=== PATIENT | female | born 1945 | race Caucasian/White ===

== ENCOUNTER → 2023-09-09 14:21 | Outpatient (REF) | payer MEDICARE, OTHER, SELFPAY ==
[2023-09-09 14:34] LABS: % Basophils 0.6 % (0-2); % Eosinophils 5.3 % (0-6); % Immature Granulocytes 0.6 % (0-0.5); % Lymphocytes 26.7 % (20.5-51.1); % Monocytes 10.1 % (1.7-9.3); % Neutrophils 56.7 % (42.2-75.2); Absolute Eosinophils 0.3 10^3/uL (0-0.7); Absolute Lymphocytes 1.5 10^3/uL (1.2-3.4); Absolute Monocytes 0.6 10^3/uL (0.1-0.6); Absolute Neutrophils 3.1 10^3/uL (1.4-6.5); Hematocrit 32.8 % (37.0-47.0); Hemoglobin 9.7 g/dL (12.0-16.0); Mean Corp Hgb Conc. 29.6 g/dL (33.0-37.0); Mean Corpuscular Volume 87.9 fL (81.0-99.0); Mean Platelet Volume 10.6 fL (7.4-10.4); Nucleated Red Blood Cells % 0 %; Platelet Count 257 10^3/uL (130-400); Red Blood Cell Count 3.73 10^6/uL (4.20-5.40); Red Cell Dist. Width 15.5 % (11.5-14.5); White Blood Cell Count 5.4 10^3/uL (4.8-10.8)
[2023-09-09 14:42] LABS: Iron 38 ug/dl (37-170)
[2023-09-09 14:52] LABS: Percent Saturation 11 % (20-50); Total Iron Binding Capacity 340 ug/dl (265-497)
== END ==
LOC: CLAB 14:21
PROVIDERS: ATTENDING PHYSICIAN Family Medicine
DX: D64.9 Anemia, unspecified (principal)
CPT/HCPCS: 36415; 83540; 83550; 85025

== ENCOUNTER → 2023-09-29 13:22 | Outpatient (REF) | payer MEDICARE, OTHER, SELFPAY ==
[2023-09-29 14:40] LABS: % Basophils 0.5 % (0-2); % Eosinophils 6.8 % (0-6); % Immature Granulocytes 0.2 % (0-0.5); % Lymphocytes 22.7 % (20.5-51.1); % Monocytes 7.5 % (1.7-9.3); % Neutrophils 62.3 % (42.2-75.2); Absolute Eosinophils 0.4 10^3/uL (0-0.7); Absolute Lymphocytes 1.3 10^3/uL (1.2-3.4); Absolute Monocytes 0.4 10^3/uL (0.1-0.6); Absolute Neutrophils 3.6 10^3/uL (1.4-6.5); Hematocrit 32.4 % (37.0-47.0); Hemoglobin 9.7 g/dL (12.0-16.0); Mean Corp Hgb Conc. 29.9 g/dL (33.0-37.0); Mean Corpuscular Hgb 25.9 pg (27.0-31.0); Mean Corpuscular Volume 86.4 fL (81.0-99.0); Mean Platelet Volume 10.9 fL (7.4-10.4); Nucleated Red Blood Cells % 0 %; Platelet Count 230 10^3/uL (130-400); Red Blood Cell Count 3.75 10^6/uL (4.20-5.40); Red Cell Dist. Width 14.9 % (11.5-14.5); White Blood Cell Count 5.7 10^3/uL (4.8-10.8)
[2023-09-29 15:51] LABS: Iron 44 ug/dl (37-170)
== END ==
LOC: CLAB 13:22
PROVIDERS: ATTENDING PHYSICIAN Family Medicine
DX: D64.9 Anemia, unspecified (principal)
CPT/HCPCS: 36415; 82728; 83540; 85025; 86850; 86900; 86901

== ENCOUNTER 2023-10-17 04:20 | Observation (INO) | payer MEDICARE, OTHER, SELFPAY ==
[2023-10-16] VITALS (7 sets, daily range): BP systolic 118–189; BP diastolic 64–105; BMI 21.8
[2023-10-16 20:12] LABS: % Basophils 0.4 % (0-2); % Eosinophils 2.3 % (0-6); % Immature Granulocytes 0.7 % (0-0.5); % Lymphocytes 9.7 % (20.5-51.1); % Monocytes 7.7 % (1.7-9.3); % Neutrophils 79.2 % (42.2-75.2); Absolute Eosinophils 0.2 10^3/uL (0-0.7); Absolute Immature Granulocytes 0.1 10^3/uL (0-0.05); Absolute Lymphocytes 0.7 10^3/uL (1.2-3.4); Absolute Monocytes 0.6 10^3/uL (0.1-0.6); Absolute Neutrophils 5.9 10^3/uL (1.4-6.5); Hematocrit 36.5 % (37.0-47.0); Hemoglobin 10.9 g/dL (12.0-16.0); Mean Corp Hgb Conc. 29.9 g/dL (33.0-37.0); Mean Corpuscular Hgb 25.8 pg (27.0-31.0); Mean Corpuscular Volume 86.5 fL (81.0-99.0); Mean Platelet Volume 10.4 fL (7.4-10.4); Nucleated Red Blood Cells % 0 %; Platelet Count 254 10^3/uL (130-400); Red Blood Cell Count 4.22 10^6/uL (4.20-5.40); Red Cell Dist. Width 15.3 % (11.5-14.5); White Blood Cell Count 7.4 10^3/uL (4.8-10.8)
--- NOTE | 2023-10-16 20:22 | ED.GENMED ---
History of Present Illness
<PAULETTE Anders - Last Filed: 10/16/23 23:29>
General
Chief Complaint: Heart Rate Problem
Source: patient and family
Exam Limitations: none
Time Seen by Provider: 10/16/23 20:06
Nursing documentation reviewed up to this point in time: agreed with
Travel History
Have you had any contact with someone who has COVID-19?: No
Do you have any symptoms of coronavirus? Fever > 100 degrees, chills, cough, shortness of breath, sore throat, loss of taste or smell, muscle aches, or headache?: No
History of Present Illness
History of Present Illness:
77-year-old female brought to the ER by family for evaluation. Patient has chronic COPD and today noticed that her heart rate was in the 120s�130s. She normally is O2 dependent. She reports her pulse ox was good but because of the elevated heart
she presented here to the ER. She did use albuterol about an hour and 1/2-1-hour prior to arrival.
Past History
<PAULETTE Anders - Last Filed: 10/16/23 23:29>
Past History
ED Past Medical History: Asthma, COPD, GERD, HTN, Hypercholesterolemia and NIDDM
ED Past Surgical History: Appendectomy, Cholecystectomy and Other (fempop bypass bilaterally)
Social History
Tobacco: Former smoker
Alcohol: Occasional
Drug: None
Personal:
Living: with family
Family History
Family History: Other
Review of Systems
<PAULETTE Anders - Last Filed: 10/16/23 23:29>
Review of Systems
Allergies reviewed?: Yes
All Other Systems: ROS reviewed and negative except as documented in HPI and ROS
Constitutional: Reports no symptoms; Denies fever, fatigue or chills
Respiratory: Reports trouble breathing
Cardiac: Reports other (elevated hr )
ABD/GI: Reports no symptoms
Musculoskeletal: Reports no symptoms
Skin: Reports no symptoms
Neurological: Reports no symptoms
Psychiatric: Reports no symptoms
Phy Exam
<PAULETTE Anders - Last Filed: 10/16/23 23:29>
General Physical Exam
General Presentation: no apparent distress
General age: appears stated age
General Skin: warm and dry
General Habitus: normal
General Mental: alert
General Hydration: appears well hydrated
Cardiovascular Exam
Cardiovascular Exam: tachycardia
Pulmonary Exam
Pulmonary Exam: no respiratory distress and decreased breath sounds
Neurological Exam
Neurological Exam: alert and oriented x3
Musculoskeletal Exam
Musculoskeletal Exam: full ROM
Skin Exam
Skin Exam: normal color and warm/dry
Psychiatric Exam
Psychiatric Exam: normal mood/affect
Course
<PAULETTE Anders - Last Filed: 10/16/23 23:29>
Orders/Labs/Results
Orders:
Orders
10/16/23 19:02
Electrocardiogram (*1) Urgent
Reason for Study: Chest Pain
EKG- Treatment ONCE
10/16/23 19:59
CMP [Comprehensive Metabolic Panel] Urgent
Complete Blood Count/With Diff Urgent
10/16/23 20:37
Levalbuterol [Xopenex 1.25 mg Inhalant Solution] 1.25 mg INH R NOW STA
10/16/23 20:49
0.9% Sodium Chloride 500 ml [Nss] 500 ml IV BOLUS
10/16/23 22:12
Dexamethasone Sod Phosphate [Decadron] 10 mg IV NOW STA
10/16/23 22:24
Chest [CR Chest - 2 Views ] Urgent
Comment:
Reason For Exam: sob
Abnormal Lab Results
10/16/23
19:59
Hgb 10.9 L g/dL
(12.0-16.0)
Hct 36.5 L %
(37.0-47.0)
MCH 25.8 L pg
(27.0-31.0)
MCHC 29.9 L g/dL
(33.0-37.0)
RDW 15.3 H %
(11.5-14.5)
Abs Immat Gran (auto) 0.1 H 10^3/uL
(0-0.05)
Absolute Lymphs (auto) 0.7 L 10^3/uL
(1.2-3.4)
Immature Gran % 0.7 H %
(0-0.5)
Neutrophils % 79.2 H %
(42.2-75.2)
Lymphocytes % 9.7 L %
(20.5-51.1)
Carbon Dioxide 35 H mmol/L
(22-30)
Glucose 284 H mg/dl
(70-99)
10/16/23 19:59
10/16/23 19:59
Vital Signs
Initial and Last Documented VS:
Initial Vital Signs
Temp Pulse Resp BP Pulse Ox
99.9 F 139 38 189/105 96
10/16/23 19:07 10/16/23 19:07 10/16/23 19:07 10/16/23 19:07 10/16/23 19:07
Last Documented Vital Signs
Temp Pulse Resp BP Pulse Ox
97.9 F 119 18 132/76 96
10/16/23 19:10 10/16/23 21:00 10/16/23 21:00 10/16/23 21:00 10/16/23 21:00
Cot Assembler consulted with Physician
Cot Assembler consulted with physician?: Yes
Name of Physician Consulted: Eliceo
<Marcos J. Eliceo, DO - Last Filed: 10/16/23 21:56>
Orders/Labs/Results
Orders:
Orders
10/16/23 19:02
Electrocardiogram (*1) Urgent
Reason for Study: Chest Pain
EKG- Treatment ONCE
10/16/23 19:59
CMP [Comprehensive Metabolic Panel] Urgent
Complete Blood Count/With Diff Urgent
10/16/23 20:37
Levalbuterol [Xopenex 1.25 mg Inhalant Solution] 1.25 mg INH R NOW STA
10/16/23 20:49
0.9% Sodium Chloride 500 ml [Nss] 500 ml IV BOLUS
10/16/23 22:12
Dexamethasone Sod Phosphate [Decadron] 10 mg IV NOW STA
10/16/23 22:24
Chest [CR Chest - 2 Views ] Urgent
Comment:
Reason For Exam: sob
Abnormal Lab Results
10/16/23
19:59
Hgb 10.9 L g/dL
(12.0-16.0)
Hct 36.5 L %
(37.0-47.0)
MCH 25.8 L pg
(27.0-31.0)
MCHC 29.9 L g/dL
(33.0-37.0)
RDW 15.3 H %
(11.5-14.5)
Abs Immat Gran (auto) 0.1 H 10^3/uL
(0-0.05)
Absolute Lymphs (auto) 0.7 L 10^3/uL
(1.2-3.4)
Immature Gran % 0.7 H %
(0-0.5)
Neutrophils % 79.2 H %
(42.2-75.2)
Lymphocytes % 9.7 L %
(20.5-51.1)
Carbon Dioxide 35 H mmol/L
(22-30)
Glucose 284 H mg/dl
(70-99)
10/16/23 19:59
10/16/23 19:59
Vital Signs
Initial and Last Documented VS:
Initial Vital Signs
Temp Pulse Resp BP Pulse Ox
99.9 F 139 38 189/105 96
10/16/23 19:07 10/16/23 19:07 10/16/23 19:07 10/16/23 19:07 10/16/23 19:07
Last Documented Vital Signs
Temp Pulse Resp BP Pulse Ox
97.9 F 119 18 132/76 96
10/16/23 19:10 10/16/23 21:00 10/16/23 21:00 10/16/23 21:00 10/16/23 21:00
<PAULETTE Anders - Last Filed: 10/16/23 23:29>
MDM/Problems Addressed
Differential Diagnosis Includes:
Not limited to dehydration COPD exacerbation
MDM/Problems Addressed:
Patient is a 77-year-old female with history of COPD on chronic O2 presents with shortness of breath elevated heart rate. Patient presented tachycardic with a heart rate of 139. Patient was given fluids and pt was given Decadron, xoponex.
Evaluated by Ame fisher.
Chronic conditions affecting care:
COPD
<PAULETTE Anders - Last Filed: 10/16/23 23:29>
*Critical Care Note
Total Time (30-74mins, 75-104mins- exclusive of procedures): Not Applicable
ED Attending Note
<PAULETTE Anders - Last Filed: 10/16/23 23:29>
-
Portions of this chart may have been created with voice recognition software.� Occasional wrong word or��sound alike� substitutions may have occurred due to the inherent limitations of voice recognition software.
<Marcos Fenton, DO - Last Filed: 10/16/23 21:56>
ED Attending Note
Patient seen and examined by attending physician: Yes
I performed the substantive portion of visit, reviewed & personally made and approve the management plan that is documented in note by myself or MARVIN.: Yes
ED Attending Note:
Seen with PROFILER OPERATOR examined independently 77-year-old female advanced COPD oxygen dependent presents with shortness of breath tachycardia looks improved after Xopenex, patient states she feels too short of breath to go home
Discharge Plan
Departure
Patient Disposition: Admit
Date of Disposition: 10/16/23
Time of Disposition: 23:28
Admit to: Telemetry
Presentation/result/management discussed w/ accepting MD/DO: Hospitalist
Patient with high blood pressure during this ER visit?: Yes
Condition: Fair
Covid-19: Not Applicable
Discharge Problem:
copd exacerbation
Prescriptions:
No Action
albuterol sulfate 1 PUFF HFA aerosol inhaler
2 puff inhalation R Q4HPRN PRN (Reason: sob)
amlodipine 5 MG tablet
5 mg PO DAILY
metformin 500 MG tablet extended release 24 hr
500 mg PO BID@0800,1700
guaifenesin [Mucus Relief ER] 600 MG tablet extended release 12hr
600 mg PO BIDPRN PRN (Reason: post nasal drip)
diltiazem HCl 240 MG capsule,extended release 24hr
240 mg PO DAILY Qty: 30 0RF
ipratropium-albuterol 0.5 mg-3 mg(2.5 mg base)/3 mL Solution For Nebulization
3 ml INHALATION R QID
alprazolam [Xanax] 0.5 mg Tablet
0.25 mg PO BID
furosemide 20 mg Tablet
20 mg PO Q48H
formoterol fumarate [Perforomist] 20 mcg/2 mL Solution For Nebulization
20 mcg INHALATION R BID
prednisone 10 MG tablet
5 mg PO Q48H
budesonide 0.25 mg/2 mL Suspension For Nebulization
0.25 mg INHALATION R BID
escitalopram oxalate [Lexapro] 20 mg Tablet
20 mg PO DAILY
Eliquis 5 mg Tablet
5 mg PO BID
Referrals:
Hay Browne DO [Family Provider] -
Interventions
Interventions:
*Risk Screen - Suicide Last Done: 10/16/23 19:12
*General Assessment Last Done: 10/16/23 19:12
*Neglect/Abuse Screening Last Done: 10/16/23 19:12
ED- Fall Risk Assessment Last Done: 10/16/23 19:37
*ED COVID-19 Vaccine History Last Done: 10/16/23 19:12
ED- Cardiac Assessment Last Done: 10/16/23 19:37
ED- Pulmonary Assessment Last Done: 10/16/23 19:37
[2023-10-16 20:24] LABS: ALT (SGPT) 13 U/L (0-35); AST (SGOT) 20 U/L (14-36); Alkaline Phosphatase 78 U/L (38-126); Blood Urea Nitrogen 14 mg/dl (7-17); Calcium 9.3 mg/dl (8.4-10.2); Carbon Dioxide 35 mmol/L (22-30); Chloride 99 mmol/L (98-107); Estimated Creatinine Clearance 54 ml/min; Glucose 284 mg/dl (70-99); Potassium 4.7 mmol/L (3.5-5.1); Sodium 136 mmol/L (135-145); Total Bilirubin 0.5 mg/dl (0.2-1.3); Total Protein 6.9 g/dl (6.3-8.2); eGFR > 60.00
[2023-10-16] MEDS: XOPENEX 1.25 MG INHALANT SOLUTION INH (21:06)
[2023-10-16] MEDS: NSS 500 IV (21:10)
[2023-10-16] MEDS: DECADRON 10 MG IV (22:33)
[2023-10-17] VITALS (13 sets, daily range): BP systolic 112–165; BP diastolic 56–90; PULSE 96–97; O2SAT 95–96; BMI 21.4
--- NOTE | 2023-10-17 03:31 | HPS.HSE ---
Family Physician
-
Family Physician: Hay Browne
Chief Complaint
-
Rapid Heart rate
History of Present Illness
Patient is a 77y F with PMH significant for COPD on home O2 who presents to ED complaining of fast heart rate. Patient states that she was feeling 'not right' earlier today while family was visiting her. She cannot explain her symptoms in any
detail. She denies any significant cough or increase in her usual chronic dyspnea. She checked her SpO2 at home and noted that her heart rate was in the 130s. She presented to the ED for further evaluation.
Patient lives wit her daughter and son-in-law who are currently out of town. She notes that she may be some anxious about their absence.
She also notes that she woke with some back discomfort this AM that has bothered her throughout the day. She denies any recent fall or injury. She denies any urinary complaints.
At the time of my exam in the ED, patient is sleeping comfortably and her heart rate is in the 90s.
Medical History
Past Medical History
Past Medical History: Reports Other
Additional Past Medical History:
Severe COPD
Chronic Hypoxemic Respiratory Failure
Hypertension
DM-II
ASCVD / PAD
History of DVT / PE
Anxiety / Depression
Chronic Ambulatory Dysfunction
Past Surgical History: Reports Other
Additional Past Surgical History:
Appendectomy
Tubal Ligation
Bilateral Fem-Pop Bypasses
Cholecystectomy
Social History
Tobacco: Former Smoker (Quit > 10 years ago. > 50 pack years total use.)
Alcohol: None
Drug: None
Living: With Family
Family History
Family History: Not pertinent
Allergies / Home Medications
Allergies reflects when Allergies were last updated in [facility].
Home Medications with original date entered in [facility]
Allergy/Medication List:
Allergies
Allergy/AdvReac Type Severity Reaction Status Date / Time
No Known Allergies Allergy Verified 10/16/23 19:44
Home Medications
albuterol sulfate 90 mcg/actuation aerosol inhaler 2 puff inhalation R Q4HPRN PRN sob 04/18/13
amlodipine 5 mg tablet 5 mg PO DAILY Blood Pressure 08/01/15
metformin 500 mg tablet,extended release 24 hr 500 mg PO BID@0800,1700 Diabetes 03/25/17
guaifenesin 600 mg tablet, extended release 12 hr (Mucus Relief ER) 600 mg PO BIDPRN PRN post nasal drip 11/01/19
diltiazem HCl 240 mg capsule,extended release 24 hr 240 mg PO DAILY #30 caps 11/05/19
alprazolam 0.5 mg tablet (Xanax) 0.25 mg PO BID Mental Health/Anxiety 08/12/23
apixaban 5 mg tablet (Eliquis) 5 mg PO BID Blood Clot Prevention/Tx 08/12/23
budesonide 0.25 mg/2 mL suspension for nebulization 0.25 mg inhalation R BID Lung/Breathing Issues 08/12/23
escitalopram oxalate 20 mg tablet (Lexapro) 20 mg PO DAILY Depression 08/12/23
formoterol fumarate 20 mcg/2 mL solution for nebulization (Perforomist) 20 mcg inhalation R BID Lung/Breathing Issues 08/12/23
furosemide 20 mg tablet 20 mg PO Q48H Fluid Retention/Swelling 08/12/23
ipratropium 0.5 mg-albuterol 3 mg (2.5 mg base)/3 mL nebulization soln 3 ml inhalation R QID Lung/Breathing Issues 08/12/23
prednisone 10 mg tablet 5 mg PO Q48H Anti-Inflammatory 08/12/23
Review of Systems
-
History Source: Patient
A 12 point ROS was completed and negative except as noted: Yes
Constitutional: Reports Fatigue; Denies Fever or Chills
EENT: Denies Sore Throat
Respiratory: Reports Cough and Trouble Breathing; Denies Hemoptysis
Cardiac: Denies Chest Pain, Palpitations or Syncope
Abdomen/GI: Denies Abdominal Pain, Nausea, Vomiting or Diarrhea
: Denies Dysuria or Frequency
Neurological: Denies Dizzy or Headache
Psych: Reports Anxiety; Denies Depression
Physical Exam
Vital Signs
Vital Signs
Temp Pulse Resp BP Pulse Ox
97.9 F 88 20 118/63 99
10/16/23 19:10 10/17/23 03:00 10/17/23 03:00 10/17/23 03:00 10/17/23 00:30
Physical Exam
General: Other (89y F in no acute distress.)
HEENT: Moist mucous membranes and PERRLA
Respiratory: Other (Decreased BS bilaterally. No significant wheezing at present.)
Cardiac: S1/S2 and Regular Rhythm; No Tachycardia
GI: Soft, Non Tender, Non Distended and Normal Bowel Sounds
Musculoskeletal: No Clubbing, No Cyanosis and Other (Trace pedal edema on the R.)
Neuro: AO x 3
Laboratory Results
-
10/16/23 19:59
10/16/23 19:59
Laboratory Results
Total Bilirubin 0.5 mg/dl (0.2-1.3) 10/16/23 19:59
AST 20 U/L (14-36) 10/16/23 19:59
ALT 13 U/L (0-35) 10/16/23 19:59
Alkaline Phosphatase 78 U/L (38-126) 10/16/23 19:59
Impression/Plan
-
A/P: Patient is a 77y F with PMH significant for COPD, hypertension and anxiety who presents to ED for evaluation of elevated heart rate.
Sinus Tachycardia
- Observe overnight for further evaluation.
- Multiple contributing factors here including chronic respiratory issues, back pain and anxiety.
- Currently normalized while patient asleep.
- Address underlying issues as noted below.
- No other specific treatment.
COPD without Acute Exacerbation
Chronic Hypoxemic Respiratory Failure
- No wheezing at the time of my exam.
- Patient denies any recent change in cough / dyspnea / etc.
- Hold further IV steroids for now.
- Continue PO prednisone at 10mg daily for now and adjust dosing as needed / able.
- Continue usual inhaled medications.
- Continue usual oxygen supplementation.
Low Back Pain
- Patient denies any specific injury or trauma.
- Heat to low back.
- Tylenol as needed for pain.
- PT / OT evaluations.
ASCVD
Benign Hypertension
- Stable. Continue current med regimen for BP control and adjust as needed.
DM-II
- Stable. Continue metformin.
- Follow glucose and cover with SSI as needed.
Generalized Anxiety
- Perhaps some increased anxiety with live-in family out of town.
- Continue usual anxiolytic med regimen.
DVT Prophylaxis
History of DVT / PE
- On Eliquis
Code Status: DNR
[2023-10-17 06:39] LABS: Hematocrit 32.3 % (37.0-47.0); Hemoglobin 9.6 g/dL (12.0-16.0); Mean Corp Hgb Conc. 29.7 g/dL (33.0-37.0); Mean Corpuscular Hgb 25.4 pg (27.0-31.0); Mean Corpuscular Volume 85.4 fL (81.0-99.0); Mean Platelet Volume 9.8 fL (7.4-10.4); Platelet Count 227 10^3/uL (130-400); Red Blood Cell Count 3.78 10^6/uL (4.20-5.40); Red Cell Dist. Width 15.4 % (11.5-14.5); White Blood Cell Count 6.2 10^3/uL (4.8-10.8)
[2023-10-17 07:04] LABS: Blood Urea Nitrogen 12 mg/dl (7-17); Calcium 8.8 mg/dl (8.4-10.2); Carbon Dioxide 33 mmol/L (22-30); Chloride 104 mmol/L (98-107); Estimated Creatinine Clearance 72 ml/min; Glucose 189 mg/dl (70-99); Potassium 5.1 mmol/L (3.5-5.1); Sodium 138 mmol/L (135-145); eGFR > 60.00
[2023-10-17 07:35] LABS: TSH Reflex To Free T4 0.24 uIU/ml (0.47-4.68)
--- NOTE | 2023-10-17 08:00 | PTCARENOTE ---
Pt admitted to room 410-1. Slide transferred from stretcher to bed. Pt AAOx3. Tele showing NSR HR 90's. VSS. Pt oriented to room and has call lugo within reach.
[2023-10-17 08:04] LABS: Glucose - Point of Care 131 mg/dl (70-99)
[2023-10-17] MEDS: DUONEB 3 ML INH ×4 (08:14→19:14)
[2023-10-17] MEDS: PULMICORT 0.5 MG INH ×2 (08:15→19:15)
[2023-10-17] MEDS: NOVOLOG FLEXPEN-LOW RESISTANCE SC (08:46)
[2023-10-17] MEDS: ELIQUIS 5 MG PO ×2 (09:00→20:52)
[2023-10-17] MEDS: CARDIZEM CD 240 MG PO (09:00)
[2023-10-17] MEDS: DELTASONE 10 MG PO (09:00)
[2023-10-17] MEDS: NORVASC 5 MG PO (09:01)
[2023-10-17] MEDS: MUCINEX 600 MG PO ×2 (09:01→20:52)
[2023-10-17] MEDS: LEXAPRO 20 MG PO (09:01)
[2023-10-17] MEDS: LASIX 20 MG PO (09:11)
[2023-10-17] MEDS: TYLENOL 650 MG PO (09:13)
[2023-10-17] MEDS: GLUCOPHAGE XR EXTENDED RELEASE 500 MG PO ×2 (09:21→17:22)
[2023-10-17 09:51] LABS: Glycohemoglobin (HgbA1c) 6.6 % (4.0-5.6)
--- NOTE | 2023-10-17 10:49 | W.PN.UPDATE ---
Update Note
Progress Note Update
Admitted this morning by Dr. Cardenas for tachycardia.
She noted that on her pulse oximetry. It was apparently 130. She got worried and became anxious and came into the hospital.
This morning she is sleep deprived.
Denies any worsening of her chronic dyspnea. Denies need of increasing FiO2. She has a chronic cough without change. No chest pain. No nausea or vomiting.
She is on the cardiac cath tech which shows sinus tachycardia with heart rate in 90s.
She takes twice daily nebulizers chronically. She is also anxious and takes Xanax at home.
Chest with decreased breath sounds in general without any wheeze. No acute respiratory distress.
Sinus tachycardia-suspect reactive, rule out arrhythmia. Continue shelter monitor today. She is on Eliquis for DVT.
TSH low but free t4 normal.
[2023-10-17] MEDS: PROTONIX 40 MG PO (11:35)
[2023-10-17] MEDS: XANAX 0.25 MG PO ×2 (12:07→23:31)
[2023-10-17 12:18] LABS: Glucose - Point of Care 225 mg/dl (70-99)
[2023-10-17] MEDS: NOVOLOG FLEXPEN-LOW RESISTANCE 2 UNITS SC ×2 (12:41→17:21)
--- NOTE | 2023-10-17 16:41 | CM ---
CM following re: d/c planning
Chart reviewed
CM met with the patient at bedside; IA completed
Pt is here as observation, LÓPEZ letter explained and copy provided
Pt states she resides with her daughter and her family in a 2SH with 1STE
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
Pt has no SNF hx, has a spc, w/c, O2, & a rollator and has recent hx with [facility] for home care
Pt does have prescription coverage and rx's are filled at [facility] on [address] [place] and maintenance meds are filled through [facility]
Pt PCP-Dr. Browne
Per PT/OT evals post d/c recommendation is for VN
CM to place referral via care port with [facility] since agency known to patient
CM will continue to follow patient progress and assist with any additional needs as indicated
PLAN; d/c home with VN
[2023-10-17 17:18] LABS: Glucose - Point of Care 203 mg/dl (70-99)
[2023-10-17 21:02] LABS: Glucose - Point of Care 217 mg/dl (70-99)
[2023-10-17] MEDS: MAALOX 30 ML PO (22:15)
[2023-10-18 00:27] VITALS: PULSE 3; PULSE 84
[2023-10-18 02:16] VITALS: BMI 21.4
[2023-10-18 03:55] VITALS: BP 149/75
[2023-10-18 04:10] VITALS: BMI 21.5
[2023-10-18 07:30] VITALS: BP 157/53
[2023-10-18] MEDS: DUONEB 3 ML INH ×2 (07:34→11:18)
[2023-10-18] MEDS: PULMICORT 0.5 MG INH (07:36)
[2023-10-18 08:00] LABS: Glucose - Point of Care 141 mg/dl (70-99)
--- NOTE | 2023-10-18 09:27 | W.PN.HOSP.TC ---
Today's Communication/Plan
-
Discharge home with home PT today
Assessment / Plan
Assessment / Plan
HPI: Patient is a 77y F with PMH significant for COPD, hypertension and anxiety who presents to ED for evaluation of elevated heart rate.
Sinus Tachycardia
�- Multiple contributing factors here including chronic respiratory issues, back pain and anxiety.
�- Resolved, she denies palpitations
- She was able to ambulate with PT without tachycardia
- Medically stable for discharge home with home PT
COPD without Acute Exacerbation
Chronic Hypoxemic Respiratory Failure
�- Resume previous home prednisone dose of 5 mg every 48 hours
- States her breathing is at baseline, she is on her home oxygen requirement of 2 L
Low Back Pain
�- Patient denies any specific injury or trauma.
�- Heat to low back.
�- Tylenol as needed for pain.
�- PT / OT rec home PT
ASCVD
Benign Hypertension
�- Stable.� Continue current med regimen for BP control and adjust as needed.
DM-II
�- Stable.� Continue metformin.
�- Follow glucose and cover with SSI as needed.
Generalized Anxiety
�- Perhaps some increased anxiety with live-in family out of town.
�- Continue usual anxiolytic med regimen.
DVT Prophylaxis
History of DVT / PE
�- On Eliquis
Code Status:� DNR
Physical Exam
General: No acute distress
HEENT: Normocephalic, Atraumatic, EOMI, MMM
Respiratory: Severely diminished breath sounds in all lung ribeiro diffusely
Cardiac: Normal S1/S2, Regular Rate and Rhythm
GI: Soft, Nontender, Nondistended, Normal Bowel Sounds
Extremities: No Clubbing, Cyanosis, or Edema
Neuro: Nonfocal/Grossly Intact
Psych: Calm, Cooperative
Derm: No Visible lesions
Anticipated Discharge: Today
Subjective/Interval History
-
Date of Service: October 18, 2023
Patient has chronic shortness of breath from her COPD. She states her breathing is at baseline. She does have a chronic cough. Denies hemoptysis. Tachycardia resolved. Denies palpitations.
Objective Data
-
Vital Signs:
Vital Signs
Temp Pulse Resp BP Pulse Ox
97.8 F 75 16 157/53 99
10/18/23 07:30 10/18/23 07:42 10/18/23 07:42 10/18/23 07:30 10/18/23 07:42
[2023-10-18] MEDS: NOVOLOG FLEXPEN-LOW RESISTANCE SC ×2 (10:14→12:17)
[2023-10-18] MEDS: LEXAPRO 20 MG PO (10:15)
[2023-10-18] MEDS: CARDIZEM CD 240 MG PO (10:15)
[2023-10-18] MEDS: ELIQUIS 5 MG PO (10:15)
[2023-10-18] MEDS: MUCINEX 600 MG PO (10:15)
[2023-10-18] MEDS: DELTASONE 10 MG PO (10:16)
[2023-10-18] MEDS: GLUCOPHAGE XR EXTENDED RELEASE 500 MG PO (10:16)
[2023-10-18] MEDS: NORVASC 5 MG PO (10:16)
[2023-10-18] MEDS: PROTONIX 40 MG PO (10:16)
[2023-10-18] MEDS: XANAX 0.25 MG PO ×2 (10:23→13:52)
[2023-10-18 11:20] VITALS: BP 147/73
[2023-10-18 11:52] LABS: Glucose - Point of Care 129 mg/dl (70-99)
[2023-10-18 12:46] VITALS: PULSE 97; O2SAT 95
--- NOTE | 2023-10-18 13:26 | VNURNOTE ---
Home Health Liaison met with patient at 1215 to discuss [facility] nurse/therapy, visits, schedule and homebound status. Patient is agreeable and understands that visits at home will be 2-3 x per week to assess and teach medical management.
[facility] brochure provided with contact information. Patient is aware that [facility] will contact her for start of care in 1-2 days after discharge from .
[facility] referral completed previously and accepted in Care Port.
--- NOTE | 2023-10-18 13:27 | W.DCSUMMARY ---
Discharge Summary
Discharge Data
Date of Admission: 10/17/23
Date of Discharge: 10/18/23
-
Pending Results: No
Hospital Course
Discharge diagnosis:
Reactive sinus tachycardia
Chronic obstructive pulmonary disease without exacerbation
Chronic hypoxic respiratory failure on 2 L of oxygen
Chronic lower back pain
Coronary artery disease
Type 2 diabetes
Generalized anxiety
History of deep vein thrombosis on Eliquis
Hospital course:
77-year-old female with a past medical history of COPD, chronic hypoxic respiratory failure requiring 2 L of oxygen, hypertension, and anxiety was admitted for sinus tachycardia. Patient reports that her heart monitor read 130 at home. By the time
she was seen by the admitting hospital doctor, she was sleeping and her heart rate was in the 90s.
Patient's sinus tachycardia is reactive, secondary to her anxiety, and possibly back pain. She denies any recent fall, or injury. Her family was out of town at the time, which likely contributed to her anxiety. She was continued on her home
Xanax. She is usually on prednisone 5 mg every other day. This was increased to 10 mg daily for 2 days to help with her back pain.
Her sinus tachycardia resolved, her back pain improved. She was able to ambulate with PT without tachycardia. She has chronic shortness of breath, and her breathing is at baseline. She is medically stable for discharge. She can follow-up with
her primary care doctor in 1 week. She can also resume her previous prednisone dose of 5 mg daily. She can take Tylenol 1 g 3 times daily for her back pain.
Disposition: Home with home PT
Discharge planning: Required 35 minutes
Discharge Plan
-
Patient Disposition: Home with Home Care
Discharge Diagnosis/Procedures: Reactive sinus tachycardia, chronic obstructive pulmonary disease, chronic hypoxic respiratory failure requiring 2 L of oxygen, chronic back pain, anxiety
Condition: Fair
Diet: Low Fat, Low Cholesterol and Diabetic, Carb Controlled
Activity: As tolerated
Other Services: VN and PT
Referrals:
Hay Browne DO [Family Provider] - in one week
Prescriptions:
New
acetaminophen 500 mg tablet
1,000 mg PO TID Qty: 90 0RF
Continued
albuterol sulfate 1 PUFF HFA aerosol inhaler
2 puff inhalation R Q4HPRN PRN (Reason: sob)
amlodipine 5 MG tablet
5 mg PO DAILY
metformin 500 MG tablet extended release 24 hr
500 mg PO BID@0800,1700
guaifenesin [Mucus Relief ER] 600 MG tablet extended release 12hr
600 mg PO BIDPRN PRN (Reason: post nasal drip)
diltiazem HCl 240 MG capsule,extended release 24hr
240 mg PO DAILY Qty: 30 0RF
ipratropium-albuterol 0.5 mg-3 mg(2.5 mg base)/3 mL Solution For Nebulization
3 ml INHALATION R QID
alprazolam [Xanax] 0.5 mg Tablet
0.25 mg PO BID
furosemide 20 mg Tablet
20 mg PO Q48H
formoterol fumarate [Perforomist] 20 mcg/2 mL Solution For Nebulization
20 mcg INHALATION R BID
prednisone 10 MG tablet
5 mg PO Q48H
budesonide 0.25 mg/2 mL Suspension For Nebulization
0.25 mg INHALATION R BID
escitalopram oxalate [Lexapro] 20 mg Tablet
20 mg PO DAILY
Eliquis 5 mg Tablet
5 mg PO BID
Discharge Orders:
Discharge Patient (As Directed); Ordered 10/18/23
Ordered By: Shaun Huddleston
Discharge Date and Time
Discharge Date/Time: 10/18/23 14:23
--- NOTE | 2023-10-18 14:30 | CM ---
CM reviewed chart and noted dc order
VN order on chart and [facility] accepted for service
Pt discharged prior to CM meeting with her
No further dc needs noted per chart review
Discharge Disposition- home with [facility]
== END 2023-10-18 14:23 | disposition home health service (06) ==
LOC: 4 EAST ACU 04:20
PROVIDERS: ADMITTING PHYSICIAN Hospitalist; ATTENDING PHYSICIAN Family Medicine; EMERGENCY PHYSICIAN Emergency Medicine; FAMILY PHYSICIAN Family Medicine
DX: R00.0 Tachycardia, unspecified (principal); J44.9 Chronic obstructive pulmonary disease, unspecified; I10 Essential (primary) hypertension; K21.9 Gastro-esophageal reflux disease without esophagitis; J96.11 Chronic respiratory failure with hypoxia; I25.10 Atherosclerotic heart disease of native coronary artery without angina pectoris; F32.A Depression, unspecified; R26.9 Unspecified abnormalities of gait and mobility; E11.9 Type 2 diabetes mellitus without complications; M54.50 Low back pain, unspecified; F41.1 Generalized anxiety disorder; E78.00 Pure hypercholesterolemia, unspecified; Z79.84 Long term (current) use of oral hypoglycemic drugs; Z79.51 Long term (current) use of inhaled steroids; Z79.52 Long term (current) use of systemic steroids; Z79.01 Long term (current) use of anticoagulants; Z90.49 Acquired absence of other specified parts of digestive tract; Z99.81 Dependence on supplemental oxygen; Z86.718 Personal history of other venous thrombosis and embolism; Z86.711 Personal history of pulmonary embolism; Z66 Do not resuscitate
CPT/HCPCS: 94660; 71046; 80048; 80053; 82962; 83036; 84439; 84443; 85025; 85027; 93005; 94640; 96361; 96374; 97116; 97162; 97166; 99285; G0378

== ENCOUNTER → 2023-11-19 16:48 | Outpatient (REF) | payer MEDICARE, OTHER, SELFPAY ==
[2023-11-19 17:32] LABS: Hemoglobin 12.3 g/dL (12.0-16.0)
[2023-11-19 18:53] LABS: Folate 8.8 ng/ml (2.76-20); Vitamin B12 564 pg/ml (239-931)
[2023-11-21 21:19] LABS: Endomysial IgA Antibody Titer <1:10 (<1:10)
[2023-11-22 04:06] LABS: IgA 226 mg/dl (70-400)
[2023-11-24 15:54] LABS: tTG IgA Antibody 10.5 EU/ml (0-19); tTG IgG Antibody 8.8 EU/ml (0-19)
== END ==
LOC: REG 16:48
PROVIDERS: ATTENDING PHYSICIAN Internal Medicine Gastroenterology; FAMILY PHYSICIAN Family Medicine
DX: D50.9 Iron deficiency anemia, unspecified (principal); E11.9 Type 2 diabetes mellitus without complications; K21.9 Gastro-esophageal reflux disease without esophagitis
CPT/HCPCS: 36415; 82607; 82746; 82784; 83516; 85018; 86231

== ENCOUNTER → 2023-11-23 12:47 | Outpatient (REF) | payer MEDICARE, OTHER, SELFPAY | LOC: RAD 12:47 | PROVIDERS: ATTENDING PHYSICIAN Internal Medicine Gastroenterology; FAMILY PHYSICIAN Family Medicine | DX: D50.9 Iron deficiency anemia, unspecified (principal) | CPT/HCPCS: 74177; Q9967 ==

== ENCOUNTER → 2023-12-23 12:14 | Outpatient (REF) | payer MEDICARE, OTHER, SELFPAY ==
[2023-12-23 13:45] LABS: % Basophils 0.4 % (0-2); % Eosinophils 1.2 % (0-6); % Immature Granulocytes 0.4 % (0-0.5); % Lymphocytes 10.2 % (20.5-51.1); % Monocytes 5.5 % (1.7-9.3); % Neutrophils 82.3 % (42.2-75.2); Absolute Eosinophils 0.1 10^3/uL (0-0.7); Absolute Lymphocytes 0.7 10^3/uL (1.2-3.4); Absolute Monocytes 0.4 10^3/uL (0.1-0.6); Absolute Neutrophils 5.7 10^3/uL (1.4-6.5); Hematocrit 42.5 % (37.0-47.0); Hemoglobin 12.8 g/dL (12.0-16.0); Mean Corp Hgb Conc. 30.1 g/dL (33.0-37.0); Mean Corpuscular Hgb 28.6 pg (27.0-31.0); Mean Corpuscular Volume 95.1 fL (81.0-99.0); Mean Platelet Volume 10.3 fL (7.4-10.4); Nucleated Red Blood Cells % 0 %; Platelet Count 186 10^3/uL (130-400); Red Blood Cell Count 4.47 10^6/uL (4.20-5.40); Red Cell Dist. Width 14.7 % (11.5-14.5)
[2023-12-23 15:27] LABS: Iron 72 ug/dl (37-170)
[2023-12-23 15:36] LABS: Percent Saturation 31 % (20-50); Total Iron Binding Capacity 226 ug/dl (265-497)
[2023-12-23 16:02] LABS: Ferritin 74.4 ng/ml (11.1-264.0)
== END ==
LOC: REG 12:14
PROVIDERS: ATTENDING PHYSICIAN Internal Medicine Hematology & Oncology
DX: D50.9 Iron deficiency anemia, unspecified (principal)
CPT/HCPCS: 36415; 82728; 83540; 83550; 85025

== ENCOUNTER 2024-03-27 03:11 | Inpatient (IN) | payer MEDICARE, OTHER, SELFPAY ==
[2024-03-27] VITALS (30 sets, daily range): BP systolic 104–176; BP diastolic 53–104; PULSE 2–118; BMI 20.8; BMI 21.1
--- NOTE | 2024-03-27 01:28 | ED.GENMED ---
History of Present Illness
General
Chief Complaint: Breathing Problem
Source: patient
Time Seen by Provider: 03/27/24 01:19
History of Present Illness
History of Present Illness:
78yoF with a history of COPD on 2L NC and BiPAP nightly, hypertension, hyperlipidemia, type 2 diabetes, peripheral artery disease presenting with her daughter for evaluation of shortness of breath. Symptoms began yesterday evening. She reports an
acute worsening of her symptoms this evening prompting ED visit. Patient has also not been feeling well the past few days with a headache and nausea. Patient has been visiting with family and has not been as compliant with her BiPAP the past few
days.
Past History
Past History
ED Past Medical History: Asthma, COPD, GERD, HTN, Hypercholesterolemia and NIDDM
ED Past Surgical History: Appendectomy, Cholecystectomy and Other (fempop bypass bilaterally)
Social History
Tobacco: Former smoker
Alcohol: Occasional
Drug: None
Personal:
Living: with family
Family History
Family History: Other
Phy Exam
General Physical Exam
General Presentation: moderate distress
General age: appears stated age
General Skin: warm and dry
General Habitus: elderly
General Mental: alert
Cardiovascular Exam
Cardiovascular Exam: no edema and tachycardia
Pulmonary Exam
Pulmonary Exam: accessory muscle use, decreased breath sounds, respiratory distress and other (Tachypnea present with pursed lip breathing. +Accessory muscle usage. Decreased breath sounds throughout. )
[place] Coma Scale
Eye Opening: Spontaneous
Verbal Response: Oriented
Motor Response: Obeys Commands
GCS Total Score: 15
Skin Exam
Skin Exam: normal color and warm/dry
Psychiatric Exam
Psychiatric Exam: anxious
Scores
Heart Failure Risk
Heart Failure Risk Score: Not Applicable
Course
Orders/Labs/Results
Orders:
Orders
03/27/24 01:16
Electrocardiogram (*1) Urgent
Reason for Study: Shortness of Breath
EKG- Treatment ONCE
03/27/24 01:24
Albuterol Sulfate [Ventolin Nebules] 10 mg INH R NOW STA
Ipratropium Nebs [Atrovent Nebules] 1 mg INH R NOW STA
03/27/24 01:25
CMP [Comprehensive Metabolic Panel] Urgent
COVID-19 Antigen Urgent
Source: Nasal Swab
Complete Blood Count/With Diff Urgent
CR Chest Portable - 1 View Urgent
Comment:
Reason For Exam: SOB
Reason Study Needs to be Portable: Patient Unstable
03/27/24 01:27
Troponin I Urgent
Venous Blood Gas Urgent
%Oxygen/Room Air: 6L
03/27/24 01:28
MethylPREDNISolone PF [Solu-Medrol Pf] 125 mg IV NOW STA
03/27/24 01:57
Bipap [RESP] Urgent
Patient to use own unit?: No
Inspiratory Pressure (cm H2O): 12
Expiratory Pressure (cm H2O): 5
03/27/24 02:30
Acetaminophen 1000MG/100Ml [Ofirmev] 1,000 mg in 100 ml IV ONCE
Acetaminophen IV Indication:: ED Narcotic Naive Pt-ONCE
Albuterol Sulfate [Ventolin Nebules] 10 mg INH R NOW STA
03/27/24 02:40
Azithromycin 500 mg/250 ml [Zithromax Infusion] 500 mg in 250 ml IV NOW
Lorazepam [Ativan] 0.5 mg IV NOW STA
03/27/24 02:57
Procalcitonin Routine
PCT Algorithmm Indication: Respiratory
03/27/24 03:00
Admit/Transfer Patient As Directed
Co-Sign Provider:
Level of Care: Inpatient admission
Assign to:: IMU- Intermediate Care
Physician / Group: [email or web address]
Diagnosis: AE COPD, acute on chr hypoxic RF,Primary acute on chronic resp acidosis
Reason for Hospitalization: AE COPD, acute on chr hypoxic RF,Primary acute on chronic resp acidosis
Expected length of stay greater than two midnights?: Yes
ELOS- Estimated Length of Stay in days: 5
I certify the patient meets the requirements for IP care: Yes
Flush (0.9% Sodium Chloride) [Flush (Nss)] See Dose Instructions IV PER PROTOCOL
03/27/24 03:03
Code Status As Directed
Resuscitation Status: Full Code
Abnormal Lab Results
03/27/24 03/27/24
01:25 01:27
WBC 11.6 H 10^3/uL
(4.8-10.8)
RBC 4.08 L 10^6/uL
(4.20-5.40)
MCHC 32.4 L g/dL
(33.0-37.0)
Absolute Neuts (auto) 8.8 H 10^3/uL
(1.4-6.5)
Absolute Monos (auto) 1.2 H 10^3/uL
(0.1-0.6)
Neutrophils % 76.4 H %
(42.2-75.2)
Lymphocytes % 11.5 L %
(20.5-51.1)
Monocytes % 10.4 H %
(1.7-9.3)
VBG pH 7.28 L
(7.32-7.43)
VBG pCO2 81 H* mmHg
(35-48)
VBG HCO3 38.1 H mmol/L
(22-27)
Chloride 93 L mmol/L
(98-107)
Carbon Dioxide 38 H mmol/L
(22-30)
Glucose 177 H mg/dl
(70-99)
03/27/24 01:25
03/27/24 01:25
Vital Signs
Initial and Last Documented VS:
Initial Vital Signs
Temp Pulse Resp BP Pulse Ox
100.9 F H 138 30 176/104 86
03/27/24 01:14 03/27/24 01:14 03/27/24 01:14 03/27/24 01:14 03/27/24 01:14
Last Documented Vital Signs
Temp Pulse Resp BP Pulse Ox
100.9 F H 129 50 118/66 93
03/27/24 01:14 03/27/24 03:00 03/27/24 03:00 03/27/24 03:00 03/27/24 03:00
MDM/Problems Addressed
Differential Diagnosis Includes:
78yoF here with SOB x 1 day. Hx of COPD on 2L NC and BiPAP QHS. Noncompliant with BiPAP the past few days. Patient hypoxic to 86% in triage on her home oxygen. Temperature 100.9. She is tachypneic with pursed lip breathing on exam. Decreased
breath sounds throughout. Differential diagnosis includes but is not limited to: COPD exacerbation, viral syndrome, pneumonia
Initial ED plan: Check cardiac labs, VBG, COVID swab, EKG, and chest x-ray. Will order hour-long neb and IV Solu-Medrol.
*EKG
Interpreted by ED Provider?: Yes
EKG Intrepretation Date: 03/27/24
Heart Rate: 128
Rate: tachycardiac
Rhythm: sinus
Val[place]: normal axis
Interval: normal interval
QRS Pattern: normal QRS
Ischemia: non-specific ST changes
*Critical Care Note
Total Time (30-74mins, 75-104mins- exclusive of procedures): 35
Update Note
Update Note:
VBG shows a pCO2 of 89. EKG shows normal sinus rhythm with nonspecific ST/T wave changes but troponin is normal. Chest x-ray appears clear. No obvious infiltrate seen. COVID-negative. Patient was placed on BiPAP based on persistent increased
work of breathing and VBG results. Additional albuterol treatment ordered as well as azithromycin to cover for COPD exacerbation. She was admitted for further management
ED Attending Note
-
Portions of this chart may have been created with voice recognition software.� Occasional wrong word or��sound alike� substitutions may have occurred due to the inherent limitations of voice recognition software.
Discharge Plan
Departure
Patient Disposition: Admit
Date of Disposition: 03/27/24
Time of Disposition: 02:38
Presentation/result/management discussed w/ accepting MD/DO: Hospitalist
Discharge Problem:
COPD with acute exacerbation, Acute on chronic respiratory failure with hypoxia and hypercapnia, Fever
Interventions
Interventions:
*General Assessment Last Done: 03/27/24 02:08
[2024-03-27] MEDS: VENTOLIN NEBULES 10 MG INH ×2 (01:30→02:48)
[2024-03-27] MEDS: ATROVENT NEBULES 1 MG INH (01:31)
[2024-03-27] MEDS: SOLU-MEDROL PF 125 MG IV (01:36)
[2024-03-27 01:38] LABS: Venous Blood Gas B.E. 8.4 mmol/L (-4 to +4); Venous Blood Gas HCO3 38.1 mmol/L (22-27); Venous Blood Gas O2 Sat % 71.2 %; Venous Blood Gas pH 7.28 (7.32-7.43); Venous Blood Gas pO2 39 mmHg (30-50)
[2024-03-27 01:41] LABS: % Basophils 0.4 % (0-2); % Immature Granulocytes 0.3 % (0-0.5); % Lymphocytes 11.5 % (20.5-51.1); % Monocytes 10.4 % (1.7-9.3); % Neutrophils 76.4 % (42.2-75.2); Absolute Basophils 0.1 10^3/uL (0-0.2); Absolute Eosinophils 0.1 10^3/uL (0-0.7); Absolute Lymphocytes 1.3 10^3/uL (1.2-3.4); Absolute Monocytes 1.2 10^3/uL (0.1-0.6); Absolute Neutrophils 8.8 10^3/uL (1.4-6.5); Hematocrit 38.3 % (37.0-47.0); Hemoglobin 12.4 g/dL (12.0-16.0); Mean Corp Hgb Conc. 32.4 g/dL (33.0-37.0); Mean Corpuscular Hgb 30.4 pg (27.0-31.0); Mean Corpuscular Volume 93.9 fL (81.0-99.0); Mean Platelet Volume 9.6 fL (7.4-10.4); Nucleated Red Blood Cells % 0 %; Platelet Count 187 10^3/uL (130-400); Red Blood Cell Count 4.08 10^6/uL (4.20-5.40); Red Cell Dist. Width 12.8 % (11.5-14.5); White Blood Cell Count 11.6 10^3/uL (4.8-10.8)
[2024-03-27 01:41] LABS: Venous Blood Gas pCO2 81 mmHg (35-48)
[2024-03-27 01:51] LABS: ALT (SGPT) 12 U/L (0-35); AST (SGOT) 18 U/L (14-36); Albumin 4.3 g/dl (3.5-5.0); Alkaline Phosphatase 71 U/L (38-126); Blood Urea Nitrogen 12 mg/dl (7-17); Calcium 9.7 mg/dl (8.4-10.2); Carbon Dioxide 38 mmol/L (22-30); Chloride 93 mmol/L (98-107); Estimated Creatinine Clearance 51 ml/min; Glucose 177 mg/dl (70-99); Potassium 4.2 mmol/L (3.5-5.1); Sodium 139 mmol/L (135-145); Total Bilirubin 0.8 mg/dl (0.2-1.3); Total Protein 6.9 g/dl (6.3-8.2); eGFR > 60.00
[2024-03-27 01:56] LABS: COVID-19 Antigen Negative (Negative)
[2024-03-27 02:02] LABS: Troponin I < 0.012 ng/ml
[2024-03-27] MEDS: ATIVAN 0.5 MG IV (02:44)
[2024-03-27] MEDS: OFIRMEV 100 IV (02:47)
--- NOTE | 2024-03-27 02:56 | HPS.HSE ---
Family Physician
-
Family Physician: Hay Browne
Chief Complaint
-
soB, hypoxia
History of Present Illness
HPI
89F HX home 2 L O2 decedent chr hypoxic RF, chr prednisone depdent COPD, T2DM, Anxiety seen at ER for evalaution of So and worsening hypoxia
- worsening chr SoB since yesterday
- noted T 100.9 on arrival
- POx 86% on 2 L O2
- tachypneic on arrival
- Non compliance with BiPAP in aldst few days
- NEG Covid
Medical History
Past Medical History
Past Medical History: Reports Other
Additional Past Medical History:
Severe COPD
Chronic Hypoxemic Respiratory Failure
Hypertension
DM-II
ASCVD / PAD
History of DVT / PE
Anxiety / Depression
Chronic Ambulatory Dysfunction
Past Surgical History: Reports Other
Additional Past Surgical History:
Appendectomy
Tubal Ligation
Bilateral Fem-Pop Bypasses
Cholecystectomy
Social History
Tobacco: Former Smoker (Quit > 10 years ago. > 50 pack years total use.)
Alcohol: None
Drug: None
Living: With Family
Family History
Family History: Not pertinent
Allergies / Home Medications
Allergies reflects when Allergies were last updated in [employer].
Home Medications with original date entered in [employer]
Allergy/Medication List:
Allergies
Allergy/AdvReac Type Severity Reaction Status Date / Time
No Known Allergies Allergy Verified 10/16/23 19:44
Home Medications
albuterol sulfate 90 mcg/actuation aerosol inhaler 2 puff inhalation R Q4HPRN PRN sob 04/18/13
amlodipine 5 mg tablet 5 mg PO DAILY Blood Pressure 08/01/15
metformin 500 mg tablet,extended release 24 hr 500 mg PO BID@0800,1700 Diabetes 03/25/17
guaifenesin 600 mg tablet, extended release 12 hr (Mucus Relief ER) 600 mg PO BIDPRN PRN post nasal drip 11/01/19
diltiazem HCl 240 mg capsule,extended release 24 hr 240 mg PO DAILY #30 caps 11/05/19
alprazolam 0.5 mg tablet (Xanax) 0.25 mg PO BID Mental Health/Anxiety 08/12/23
apixaban 5 mg tablet (Eliquis) 5 mg PO BID Blood Clot Prevention/Tx 08/12/23
budesonide 0.25 mg/2 mL suspension for nebulization 0.25 mg inhalation R BID Lung/Breathing Issues 08/12/23
escitalopram oxalate 20 mg tablet (Lexapro) 20 mg PO DAILY Depression 08/12/23
formoterol fumarate 20 mcg/2 mL solution for nebulization (Perforomist) 20 mcg inhalation R BID Lung/Breathing Issues 08/12/23
furosemide 20 mg tablet 20 mg PO Q48H Fluid Retention/Swelling 08/12/23
ipratropium 0.5 mg-albuterol 3 mg (2.5 mg base)/3 mL nebulization soln 3 ml inhalation R QID Lung/Breathing Issues 08/12/23
prednisone 10 mg tablet 5 mg PO Q48H Anti-Inflammatory 08/12/23
Review of Systems
-
Constitutional: Reports No Symptoms
EENT: Reports No Symptoms
Respiratory: Reports See HPI
Cardiac: Reports No Symptoms
Abdomen/GI: Reports No Symptoms
: Reports No Symptoms
Musculoskeletal: Reports No Symptoms
Skin: Reports No Symptoms
Neurological: Reports No Symptoms
Endocrine: Reports No Symptoms
Hematologic/Lymphatic: Reports No Symptoms
Psych: Reports No Symptoms
Physical Exam
Vital Signs
Vital Signs
Temp Pulse Resp BP Pulse Ox
100.9 F H 129 25 143/72 99
03/27/24 01:14 03/27/24 01:34 03/27/24 01:34 03/27/24 01:34 03/27/24 01:34
Physical Exam
General: No Apparent Distress (tolerating BiPAP )
HEENT: NormoCephalic, Anicteric and Moist mucous membranes
Respiratory: Other (poor air entry , limited air movement )
Cardiac: S1/S2 and Tachycardia
Breast: Deferred by me
GI: Soft, Non Tender, Non Distended and Normal Bowel Sounds
Genito-urinary: Deferred by me
Musculoskeletal: No Edema
Skin: Warm and Dry
Neuro: Other (lethargic )
Laboratory Results
-
03/27/24 01:25
03/27/24 01:25
Laboratory Results
Total Bilirubin 0.8 mg/dl (0.2-1.3) 03/27/24 01:25
AST 18 U/L (14-36) 03/27/24 01:25
ALT 12 U/L (0-35) 03/27/24 01:25
Alkaline Phosphatase 71 U/L (38-126) 03/27/24 01:25
Troponin I < 0.012 ng/ml 03/27/24 01:27
Data Reviewed
-
Diagnostic Radiology: Image Personally Visualized and interpreted
Lab Data: Labs Reviewed by me
Old Records: Reviewed
Impression/Plan
-
Reviewed VS: T 100.9 HR 130 BP 140/70 RR 25 POx 99
Data
WCC11.6
VBG pH 7.28
VBG pCO2 81
VBG pO2 39
HCO3 39
EKG
SINUS TACHYCARDIA
NONSPECIFIC ST AND T WAVE ABNORMALITY
ABNORMAL ECG
WHEN COMPARED WITH ECG OF 17-OCT-2023 09:49,
NO SIGNIFICANT CHANGE WAS FOUND
My read on CXR; COPD but no infiltrate
Last hospitalist admission: 10/17/23 - 10/18/23 PDX
COPD falre
Chronic hypoxic respiratory failure on 2 L of home oxygen
Chr LBP
ASSESSMENT & PLAN
Pending Rx reconciliation
AE COPD with fever
Acute on Chronic Hypoxemic RF
Associated Acid base disorder
- Primary acute on chronic Resp acidosis with secondary metabolic alkalosis
- Cont. BiPAP and f/u BMP
- IV Decadron 4mg q8h in place of BRACE MAKER PO prednisone
- DuoNeb
- check PCT , till then observing off ABx
- f/u final CXR report in AM
- Pul consult
lethargy suspect Metabolic encephalopathy due to aboove
- Observe MS with above Tx
- aspiration precaution
- nursing to screen for PO
T2DM
- Stable
- cont metformin.
- add ISS low
Benign Hypertension
- Stable.
- cont Amlodipine, Diltiazem
HX DVT on Eliquis Continue current med regimen for BP control and adjust as needed.
Low Back Pain: Chr
- Tylenol as needed for pain.
Generalized Anxiety
- cont. BRACE MAKER Xanax PRN and Lexapro
DVT Px: Chr Eliquis
Code:
IMU
[2024-03-27] MEDS: ZITHROMAX INFUSION 250 IV (02:57)
[2024-03-27 04:47] LABS: Hematocrit 37.1 % (37.0-47.0); Hemoglobin 11.8 g/dL (12.0-16.0); Mean Corp Hgb Conc. 31.8 g/dL (33.0-37.0); Mean Corpuscular Volume 97.4 fL (81.0-99.0); Mean Platelet Volume 9.7 fL (7.4-10.4); Platelet Count 163 10^3/uL (130-400); Red Blood Cell Count 3.81 10^6/uL (4.20-5.40); Red Cell Dist. Width 12.9 % (11.5-14.5); White Blood Cell Count 11.6 10^3/uL (4.8-10.8)
[2024-03-27 05:13] LABS: Blood Urea Nitrogen 14 mg/dl (7-17); Calcium 9.1 mg/dl (8.4-10.2); Carbon Dioxide 33 mmol/L (22-30); Chloride 96 mmol/L (98-107); Estimated Creatinine Clearance 58 ml/min; Glucose 213 mg/dl (70-99); Potassium 4.2 mmol/L (3.5-5.1); Sodium 137 mmol/L (135-145); eGFR > 60.00
[2024-03-27 05:14] LABS: Procalcitonin < 0.05 ng/ml (0.0-0.25)
--- NOTE | 2024-03-27 05:56 | PTCARENOTE ---
Received patient AAOx3, very drowsy, following commands, and denying pain. Sinus tach 100s-120s, BP stable, normothermic. On bipap 8L, 12/5, increased from 4L as patient was saturating 86%. Lung sounds diminished anteriorly, fine crackles in the
bases, scattered rhonchi posteriorly. Tachypneic to the 30s/40s, shallow respirations. Abdomen soft, round, nontender, hypoactive bowel sounds. Purewick in place. Stage 1 on sacrum POA, foam applied. PIV patent, WNL. CHG bath done, labs sent, blood
cultures sent. Call lugo within reach.
[2024-03-27 06:40] LABS: Absolute Neutrophils -Man Diff 11.1 10^3/uL (1.4-6.5); Band Neutrophils 21 % (0-3); Lymphocytes 1 % (20-51); Monocytes 2 % (2-9); Normal RBC Morphology Yes; Platelets Checked Yes; Segmented Neutrophils 75 % (42-75); Toxic Granulation 1+
[2024-03-27 06:41] LABS: Atypical Lymphocytes 1 %; Total Cells Counted 100
[2024-03-27 07:31] LABS: Glucose - Point of Care 219 mg/dl (70-99)
[2024-03-27] MEDS: PULMICORT 0.25 MG INH ×2 (07:50→18:42)
[2024-03-27] MEDS: DUONEB 3 ML INH (07:50)
--- NOTE | 2024-03-27 08:14 | CON.PUL ---
Consultation
Consultation Request
Date/Time Consultation Requested: 03/27/2024421
Date/Time Consultation Performed: 03/27/2024808
Requesting Provider: Dr. Raya
Performing Provider: Dr. Owen
Reason for Consultation: Acute respiratory failure with hypoxia/hypercapnia
Medical History
-
Chief Complaint: Shortness of breath, fever and upper abdominal discomfort
History of Present Illness:
78-year-old female former tobacco smoker with past medical history of COPD on home oxygen, chronic hypercapnic respiratory failure on nocturnal NIV via Trilogy, hypertension, DM type II, bilateral PE + LLE DVT on Eliquis, PAD, history of asthma,
anxiety, and chronic gastritis who presents with SOB, fever and upper abdominal discomfort. She has been noncompliant with her nocturnal BiPAP for the last several weeks as she says when she gets up at night to pee she forgets to put it back on.
Initial vitals in the ER showed she was febrile to 100.9 �F, pulse rate 138, breathing at 30 breaths/min, BP 176/104 and saturating 86% on room air. Due to shortness of breath she was placed onto BiPAP at 12/5 bled with 4 L/min with improvement in
sats to 98%. Labs showed mild leukocytosis to 11.6, Hb 12.4, acute on chronic respiratory acidosis with pH 7.28, pCO2 81, serum bicarbonate level 38, troponin negative at <0.012, negative procalcitonin <0.05, and negative COVID antigen. Blood
cultures collected. CXR showed no acute cardiopulmonary abnormality. She was given DuoNebs in the ER, Ativan, Solu-Medrol 125 mg, IV Tylenol and Zithromax. Given her acute respiratory failure with hypercapnia and need for continuous BiPAP, she
was admitted to the IMU and pulmonary service consulted for additional management/recommendations.
When I saw the patient she was on BiPAP 12/5 bled with 8 L/min. She is easily arousable and answering questions appropriately. She wants the BiPAP mask taken off. She otherwise feels well, denying chest pain, headache, abdominal pain, chills.
Current heart rate 86, BP 123/55 and SpO2 95%.
Of note patient follows with us in the [facility] office with last visit on 11/24/[address] Gamino. Patient has very severe COPD/emphysema with >88-rxrv-gybu smoking history. She is on Perforomist + budesonide BID and DuoNebs TID, is on home oxygen
at 2-3L/min at rest, 4L/min with activity, and chronic prednisone at 2.5/5 mg daily. She has a history of chronic hypercapnic respiratory failure and is on nocturnal Trilogy. She has multiple pulmonary nodules which are stable. She is on Eliquis
for a history of bilateral PE. She has tried pulmonary rehab in the past however is unable to tolerate activities. Last full PFT in May 2022 showing very severe COPD with FEV1: 24% predicted/0.5 L, and mild restrictive lung defect with FVC:
61% / 1.72 L. She was unable to perform diffusion capacity and lung volume testing due to shortness of breath. She has endorsed upper abdominal discomfort in the past and has seen GI in December 2023. EGD/colonoscopy was reviewed however given her
high risk from pulmonary standpoint endoscopy was deferred. She chose to obtain periodic H&H and IV iron infusions as needed.
PMHx: COPD on home oxygen, hypertension, DM type II, bilateral PE with history of left lower extremity DVT, history of SIBO, PAD, history of asthma, anxiety/depression, former tobacco use disorder, pulmonary hypertension, gastritis, ambulatory
dysfunction
PSHx: Appendectomy, bilateral tubal ligation, cholecystectomy, right fem�pop
Past Medical History
Past Medical History: Other (Above as per HPI)
Past Surgical History: Other (Above as per HPI)
Social History
Tobacco: Former Smoker (Quit >10 years ago with 55-yubf-zacu history)
Alcohol: None
Drug: None
Living: With Family
Family History
Family History: Diabetes (Father) and Other (Sister: History of PE)
Allergies / Home Medications
Allergies
Allergy/AdvReac Type Severity Reaction Status Date / Time
No Known Allergies Allergy Verified 03/27/24 01:16
Home Medications
�Medication �Instructions �Recorded �Confirmed �Last Taken �Type
albuterol sulfate 90 mcg/actuation 2 puff inhalation R Q4HPRN PRN sob 04/18/13 10/17/23 08/14/17 History
aerosol inhaler
amlodipine 5 mg tablet 5 mg PO DAILY Blood Pressure 08/01/15 10/17/23 08/12/23 History
metformin 500 mg tablet,extended 500 mg PO BID@0800,1700 Diabetes 03/25/17 10/17/23 08/11/23 History
release 24 hr
guaifenesin 600 mg tablet, 600 mg PO BIDPRN PRN post nasal 11/01/19 10/17/23 10/30/19 History
extended release 12 hr (Mucus drip
Relief ER)
diltiazem HCl 240 mg 240 mg PO DAILY #30 caps 11/05/19 10/17/23 08/12/23 Rx
capsule,extended release 24 hr
alprazolam 0.5 mg tablet (Xanax) 0.25 mg PO BID Mental 08/12/23 10/17/23 08/12/23 History
Health/Anxiety
apixaban 5 mg tablet (Eliquis) 5 mg PO BID Blood Clot 08/12/23 10/17/23 08/12/23 History
Prevention/Tx
budesonide 0.25 mg/2 mL suspension 0.25 mg inhalation R BID 08/12/23 10/17/23 08/12/23 History
for nebulization Lung/Breathing Issues
escitalopram oxalate 20 mg tablet 20 mg PO DAILY Depression 08/12/23 10/17/23 08/12/23 History
(Lexapro)
formoterol fumarate 20 mcg/2 mL 20 mcg inhalation R BID 08/12/23 10/17/23 08/12/23 History
solution for nebulization Lung/Breathing Issues
(Perforomist)
furosemide 20 mg tablet 20 mg PO Q48H Fluid 08/12/23 10/17/23 Unknown History
Retention/Swelling
ipratropium 0.5 mg-albuterol 3 mg 3 ml inhalation R QID 08/12/23 10/17/23 08/12/23 History
(2.5 mg base)/3 mL nebulization Lung/Breathing Issues
soln
prednisone 10 mg tablet 5 mg PO Q48H Anti-Inflammatory 08/12/23 10/17/23 Unknown History
acetaminophen 500 mg tablet 1,000 mg (2 x 500 mg) PO TID #90 10/18/23 Unknown Rx
tabs
Review of Systems
-
History Source: Patient
All other systems: Negative unless noted
Vitals / Labs / Diagnostic Testing
Vital Signs
Temp Pulse Resp BP Pulse Ox
98.3 F 107 32 126/70 96
03/27/24 07:15 03/27/24 06:15 03/27/24 06:15 03/27/24 06:00 03/27/24 06:15
Lab Data
03/27/24 04:32
03/27/24 04:32
Diagnostic Testing:
Physical Exam
-
HEENT: Normocephalic and Anicteric
Cardiovascular: S1/S2 (Negative) and Peripheral Edema (Negative)
Respiratory: Wheeze (Negative), Rales (Bilateral midlung ribeiro), Rhonchi (Negative) and Non-Labored Respirations
GI: Soft, Non Distended, Non Tender and Normal Bowel Sounds
Neurology: Awake, Alert and Tremors (Negative)
Skin: Warm and Dry
General: Respiratory Distress (Negative), Comfortable, Chills (Negative) and Sweats (Negative)
Assessment
-
Assessment: 78-year-old female former tobacco smoker with past medical history of COPD on home oxygen, chronic hypercapnic respiratory failure on nocturnal NIV via Trilogy, hypertension, DM type II, bilateral PE + LLE DVT on Eliquis, PAD, history
of asthma, anxiety, and chronic gastritis who presents with SOB, fever and upper abdominal discomfort. She has been noncompliant with her nocturnal BiPAP for the last several weeks as she says when she gets up at night to pee she forgets to put it
back on. Initial vitals in the ER showed she was febrile to 100.9 �F, pulse rate 138, breathing at 30 breaths/min, BP 176/104 and saturating 86% on room air. Due to shortness of breath she was placed onto BiPAP at 12/5 bled with 4 L/min with
improvement in sats to 98%. Labs showed mild leukocytosis to 11.6, Hb 12.4, acute on chronic respiratory acidosis with pH 7.28, pCO2 81, serum bicarbonate level 38, troponin negative at <0.012, negative procalcitonin <0.05, and negative COVID
antigen. Blood cultures collected. CXR showed no acute cardiopulmonary abnormality. She was given DuoNebs in the ER, Ativan, Solu-Medrol 125 mg, IV Tylenol and Zithromax. Given her acute respiratory failure with hypercapnia and need for
continuous BiPAP, she was admitted to the IMU and pulmonary service consulted for additional management/recommendations.
Chronic conditions [employer]: COPD on home oxygen, hypertension, DM type II, bilateral PE with history of left lower extremity DVT, history of SIBO, PAD, history of asthma, anxiety, former tobacco use disorder, pulmonary hypertension, gastritis,
ambulatory dysfunction
Impression:
#Acute on chronic respiratory failure with hypoxia/hypercapnia due to BiPAP noncompliance
#COPD exacerbation
#Leukocytosis with bandemia
#Abnormal urinalysis with trace leukocyte esterase - she remains asymptomatic
#Chronic metabolic alkalosis due to compensation from chronic respiratory acidosis
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
#Former tobacco use disorder with >10-eqqc-utep history
#DM type II with hyperglycemia (last HbA1c: 6 on 03/27/2024)
#Anemia with history of LUZ
Plan:
- Continue with BiPAP during sleep and during the day with naps
- Trend blood gas to ensure pH + pCO2 are stable
- If pH>7.45 with serum HCO3>35 then will give diamox
- Continue with supplemental oxygen to maintain SpO2 >88% + <96% (her baseline home O2 is 2-3 L/min with rest, up to 4 L/min with activity)
- Patient is currently on Decadron 4 mg IV q8hr - given that she presented with shortness of breath, I agree with systemic steroids to treat for COPD exacerbation
- Wean steroids as tolerated
- Maintain euglycemia with goal BG 140-180 with moderate resistance ISS
- Continue with budesonide and start striverdi with DuoNebs TID with prn doses for breakthrough symptoms
- Mucolytics with mucinex
- Continue with Zithromax for anti-inflammatory effect - give for 5 days and then stop
- Hold off on additional antibiotics at this time
- Follow-up blood culture (collected 03/27/2024)
- Trend WBC and monitor fever curve
- If abdominal discomfort progresses or if she becomes febrile again then check CT abdomen/pelvis and sputum Cx
- Continue with home dose of Lasix
-Advised her to take this earlier in the evening so that she is not up throughout the night urinating, and this may improve her Trilogy compliance while at home
- Maintain MAP>65
- Replete electrolytes with K>4, Mg>2
- Incentive spirometer encouraged with use of 10x/hr for at least 4 hrs a day
- DVT ppx
Goals of care discussion held this morning with hospitalist, Dr. Milton Mullins, and patient is now DNR/DNI.
We will arrange for outpatient pulmonary office follow-up with Dr. Gamino. Last office visit on 11/24/2023 and she has an upcoming appointment on 03/29/2024 at 4PM which will need to be rescheduled.
Pulmonary service will continue to follow along.
Total time spent today was 75 minutes for this encounter. Time includes reviewing laboratory test/imaging results, reviewing pertinent medical records, obtaining and reviewing medical history, performing an appropriate exam, ordering medications,
tests and procedures. Time also includes documentation of this encounter, coordinating patient care and communicating with other healthcare professionals. Total time does not include separately billed tests performed on this date of service.
Data:
CXR 03/27/2024: No radiographic evidence of acute cardiopulmonary abnormality.
--- NOTE | 2024-03-27 09:01 | W.PN.UPDATE ---
Update Note
Progress Note Update
Nonbillable note
COPD exacerbation, Hypercapnic resp failure - admission VBG showing Pco2 81 ph 7.28. CXR clear. with ongoing COPD flare up considered to be in Hypercapnic resp failure and started on Bipap. Admitted to IMU. Started on dexamethasone/xopenxo inhaler.
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
T2DM - uncontrolled, increase sliding scale to moderate. check HBGA1C
Sinus tachycardia - no h/o reported afib. keep on xopenox for COPD. maintain on home dose diltiazem once confirmed. On eliquis with h/o of DVT
Daughter contacted and updated briefly. f/us with Dr Kemi campos for palliative care visit due to end stage COPD.
Code status changed to DNR/DNI - discussed with daughter.
[2024-03-27 09:27] LABS: B.E. 8.7 mmol/L; HCO3 36.4 mmol/L (21-28); O2 Saturation % 99.5 % (94-98); PCO2 66 mmHg (32-35); PO2 85 mmHg (83-108); pH 7.35 (7.35-7.45)
--- NOTE | 2024-03-27 10:50 | PTOTSP ---
Speech Language Pathology
Pt seen for clinical bedside swallow evaluation. Known esophageal issues with findings of hiatal hernia and tortuous esophagus from EGD completed in 2016. Pt denied noting any esophageal issues at baseline. Pt has dentures at home, but typically
does not wear them to eat. P.O. trials of puree, regular solids, and thin liquids provided. Adequate mastication, bolus formation, and A-P transit noted with no oral residue. Brief cough x1 following liquids in 1/4 trials.
Recommend:
(1) Regular solids/thin liquids
(2) Aspiration precautions: slow rate, sit upright, don't eat/drink if SOB
(3) Meds as tolerated
(4) INTERNAL REVENUE SERVICE AGENT to sign off. Please reconsult as indicated
[2024-03-27 11:41] LABS: Glucose - Point of Care 271 mg/dl (70-99)
[2024-03-27] MEDS: DECADRON 4 MG IV ×3 (12:13→23:54)
[2024-03-27] MEDS: CARDIZEM CD 240 MG PO (12:13)
[2024-03-27] MEDS: LEXAPRO 20 MG PO (12:14)
[2024-03-27] MEDS: GLUCOPHAGE XR EXTENDED RELEASE 500 MG PO ×2 (12:14→16:24)
[2024-03-27] MEDS: ELIQUIS 5 MG PO ×2 (12:14→20:11)
[2024-03-27] MEDS: NORVASC 5 MG PO (12:14)
[2024-03-27] MEDS: XANAX 0.25 MG PO (12:15)
[2024-03-27] MEDS: NOVOLOG FLEXPEN-MODERATE RESISTANCE 5 UNITS SC (12:16)
[2024-03-27] MEDS: MUCINEX 600 MG PO (12:18)
--- NOTE | 2024-03-27 12:21 | CM ---
CM following re: discharge planning.
Reviewed pt's chart, met with pt and daughter Thuy at bedside. .
Pt is a 78 year old female, admitted with primary dx of Primary acute on chronic Resp acidosis with secondary metabolic alkalosis.
Pt reports she lives with daughter Thuy in a 2SH, 1 step to enter, has 2 supportive children. pt's daughter Thuy stated she works from home and she provides all necessary care to pt at home. pt is active with [facility] care [facility] outpatient
rehab at home, active with Palliative care. Per daughter, pt has a walker, a cane, w/c and home oxygen with 2L NC at baseline. Pt's daughter asked to whether or not her mother is eligible for community based services. Financial requirement
explained and per daughter the pt is not eligible for Medicaid. Pt's daughter requested a list of caregiver for fee services and it provided. Pt's daughter feels it will be the best for the pt to return back home with resumptions of [facility] care [facility],
[facility] home rehab, Palliative care and family support.
PT and OT will evaluate the pt to determine a level of care at discharge.
PCP: Hay Browne
Pharmacy: [facility]
D/C plan; per daughter, home with resumptions of [facility] outpatient at home rehab, Palliative care and family support.
CM will follow with discharge plan updates as hospitalization progresses
--- NOTE | 2024-03-27 15:09 | PTCARENOTE ---
0700 seen in am in bed on BIPap 12/5 8L . patient responsive to pain stimuli only. BIPAP CHANGED to 16/5/8L . pt woke up around 10 am . awake and alert. Per daughter pt at her base line
[2024-03-27] MEDS: PROTONIX 40 MG PO ×2 (16:26→20:10)
[2024-03-27] MEDS: NOVOLOG FLEXPEN-MODERATE RESISTANCE 3 UNITS SC (16:27)
--- NOTE | 2024-03-27 16:30 | PTCARENOTE ---
patient in bed. AAO x3. SR 87. BP 116/81; RR 21. oral temp 98.0; O2 2L pt at her baseline 97%. No edema Incontinent of urine . Purwick replaced Accu check 219; covered per sliding scale. Decadrone adm per order
[2024-03-27 16:34] LABS: Glucose - Point of Care 219 mg/dl (70-99)
[2024-03-27] MEDS: XOPENEX 1.25 MG INHALANT SOLUTION INH (18:42)
[2024-03-27 18:51] LABS: Hepatitis C Antibody Negative (Negative)
--- NOTE | 2024-03-27 20:00 | PTCARENOTE ---
Assumed care of pt at shift change. Pt AAOx3, drowsy but awakens easily to verbal stimuli, offers no complaints. SpO2 95% on 2L O2 NC, lungs are diminished with an expiratory wheeze throughout. Remainder of assessment as documented. Pt updated on
POC for the evening, resting comfortably in bed watching TV.
[2024-03-27] MEDS: MUCINEX 1200 MG PO (20:10)
[2024-03-27] MEDS: DUONEB INH (20:16)
[2024-03-27 22:49] LABS: Glucose - Point of Care 217 mg/dl (70-99)
[2024-03-28] VITALS (21 sets, daily range): BP systolic 102–144; BP diastolic 49–87; PULSE 2–106; O2SAT 96; BMI 20.8
[2024-03-28 05:12] LABS: Venous Blood Gas B.E. 7.4 mmol/L (-4 to +4); Venous Blood Gas HCO3 36.5 mmol/L (22-27); Venous Blood Gas pH 7.29 (7.32-7.43); Venous Blood Gas pO2 36 mmHg (30-50)
[2024-03-28 05:19] LABS: Hematocrit 37.5 % (37.0-47.0); Hemoglobin 11.9 g/dL (12.0-16.0); Mean Corp Hgb Conc. 31.7 g/dL (33.0-37.0); Mean Corpuscular Hgb 30.6 pg (27.0-31.0); Mean Corpuscular Volume 96.4 fL (81.0-99.0); Mean Platelet Volume 9.8 fL (7.4-10.4); Platelet Count 171 10^3/uL (130-400); Red Blood Cell Count 3.89 10^6/uL (4.20-5.40); Red Cell Dist. Width 12.6 % (11.5-14.5); White Blood Cell Count 9.4 10^3/uL (4.8-10.8)
[2024-03-28 05:20] LABS: Venous Blood Gas pCO2 76 mmHg (35-48)
[2024-03-28 05:42] LABS: Blood Urea Nitrogen 29 mg/dl (7-17); Calcium 9.3 mg/dl (8.4-10.2); Carbon Dioxide 37 mmol/L (22-30); Chloride 97 mmol/L (98-107); Estimated Creatinine Clearance 51 ml/min; Glucose 244 mg/dl (70-99); Potassium 5.3 mmol/L (3.5-5.1); Sodium 139 mmol/L (135-145); eGFR > 60.00
[2024-03-28] MEDS: PULMICORT 0.25 MG INH ×2 (07:19→19:49)
[2024-03-28] MEDS: STRIVERDI RESPIMAT 2 PUFF INH (07:19)
[2024-03-28] MEDS: DUONEB 3 ML INH ×3 (07:20→19:48)
[2024-03-28] MEDS: NOVOLOG FLEXPEN-MODERATE RESISTANCE 3 UNITS SC ×2 (07:40→17:43)
[2024-03-28] MEDS: LASIX 20 MG PO (07:41)
[2024-03-28] MEDS: ZITHROMAX 252.5 MG IV (07:44)
[2024-03-28] MEDS: CARDIZEM CD 240 MG PO (07:50)
[2024-03-28] MEDS: NORVASC 5 MG PO (07:50)
[2024-03-28] MEDS: PROTONIX 40 MG PO ×2 (07:50→20:20)
[2024-03-28] MEDS: ELIQUIS 5 MG PO ×2 (07:51→20:21)
[2024-03-28] MEDS: MUCINEX 1200 MG PO ×2 (07:51→20:21)
[2024-03-28] MEDS: GLUCOPHAGE XR EXTENDED RELEASE 500 MG PO ×2 (07:52→17:44)
[2024-03-28] MEDS: DECADRON 4 MG IV ×3 (07:52→23:27)
[2024-03-28] MEDS: LEXAPRO 20 MG PO (07:52)
--- NOTE | 2024-03-28 08:00 | PTCARENOTE ---
Resumed care of patient. Resting in bed at time of assessment. AAOx3. NSR HR 90s. pulses palpable. no edema. appetite fair. Accuchecks being done before meals. Pure wick in place and draining yellow urine. foam on sacrum for small stage 1. able to
assist with turns. PT OT consulted. will continue to monitor.
--- NOTE | 2024-03-28 08:41 | W.PN.PUL3 ---
Today's Communication / Plan
-
Continue with nocturnal BiPAP however change from 16/5 ��>18/6 with average minute ventilation of 7-8 L/min
Up OOB as tolerated
Trend pH + pCO2 to assure stable
Systemic steroids with wean as tolerated
PT/OT
CARBIDE TOOL MAKER
Nebs/zithromax
Patient stable for downgrade out of IMU to telemetry. Pulmonary service will continue to follow along.
Assessment
-
Assessment: 78-year-old female former tobacco smoker with past medical history of COPD on home oxygen, chronic hypercapnic respiratory failure on nocturnal NIV via Trilogy, hypertension, DM type II, bilateral PE + LLE DVT on Eliquis, PAD, history
of asthma, anxiety, and chronic gastritis who presents with SOB, fever and upper abdominal discomfort. She has been noncompliant with her nocturnal BiPAP for the last several weeks as she says when she gets up at night to pee she forgets to put it
back on. Initial vitals in the ER showed she was febrile to 100.9 �F, pulse rate 138, breathing at 30 breaths/min, BP 176/104 and saturating 86% on room air. Due to shortness of breath she was placed onto BiPAP at 12/5 bled with 4 L/min with
improvement in sats to 98%. Labs showed mild leukocytosis to 11.6, Hb 12.4, acute on chronic respiratory acidosis with pH 7.28, pCO2 81, serum bicarbonate level 38, troponin negative at <0.012, negative procalcitonin <0.05, and negative COVID
antigen. Blood cultures collected. CXR showed no acute cardiopulmonary abnormality. She was given DuoNebs in the ER, Ativan, Solu-Medrol 125 mg, IV Tylenol and Zithromax. Given her acute respiratory failure with hypercapnia and need for
continuous BiPAP, she was admitted to the IMU and pulmonary service consulted for additional management/recommendations.
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
ambulatory dysfunction
Impression:
#Acute on chronic respiratory failure with hypoxia/hypercapnia due to BiPAP noncompliance
#COPD exacerbation
#Leukocytosis with bandemia � leukocytosis now resolved
#Abnormal urinalysis with trace leukocyte esterase - she remains asymptomatic
#Chronic metabolic alkalosis due to compensation from chronic respiratory acidosis
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
#Former tobacco use disorder with >65-hvce-yidk history
#DM type II with hyperglycemia (last HbA1c: 6 on 03/27/2024)
#Anemia with history of LUZ
#History of PE/DVT on Eliquis
Plan:
- Continue with BiPAP during sleep and during the day with naps
-I personally reviewed patient's prior home Trilogy detail, albeit it was from 01/2022. Baseline settings were: AVAPS�AE, with TV: 300, min EPAP: 5, max EPAP: 14, min PS: 5, max PS: 30; she had an average IPAP of 18.5, average EPAP of 8.7,
average VTe 355 mL, average minute ventilation: 7.3L/min, average breaths per minute: 20.3.
- She is currently on BiPAP 16/5 --> I will change to 18/6, aiming or average minute ventilation of 7-8L/min.
- Trend blood gas to ensure pH + pCO2 are stable
- If pH>7.45 with serum HCO3>35 then will give diamox
- Continue with supplemental oxygen to maintain SpO2 >88% + <96% (her baseline home O2 is 2-3 L/min with rest, up to 4 L/min with activity)
- Patient is currently on Decadron 4 mg IV q8hr - given that she presented with shortness of breath, I agree with systemic steroids to treat for COPD exacerbation
- Wean steroids as tolerated --> wean down to 4mg IV q12hr starting tomorrow
- Maintain euglycemia with goal BG 140-180 with moderate resistance ISS
- Continue with budesonide and striverdi with DuoNebs TID with prn xopenex for breakthrough symptoms
- Mucolytics with mucinex
- Continue with Zithromax for anti-inflammatory effect - give for 5 days and then stop
- Hold off on additional antibiotics at this time
- Follow-up blood culture (collected 03/27/2024)
- Trend WBC and monitor fever curve
- If abdominal discomfort progresses or if she becomes febrile again then consider checking CT abdomen/pelvis and sputum Cx
- Continue with home dose of Lasix
-Advised her to take this earlier in the evening so that she is not up throughout the night urinating, and this may improve her Trilogy compliance while at home
- Maintain MAP>65
- Replete electrolytes with K>4, Mg>2
- Incentive spirometer encouraged with use of 10x/hr for at least 4 hrs a day
- DVT ppx: Eliquis
Goals of care discussion held this morning with hospitalist, Dr. Milton Mullins, and patient is now DNR/DNI.
We will arrange for outpatient pulmonary office follow-up with Dr. Gamino. Last office visit on 11/24/2023 and she has an upcoming appointment on 03/29/2024 at 4PM which will need to be rescheduled.
Patient stable for downgrade out of IMU to telemetry. Pulmonary service will continue to follow along.
Total time spent today was 35 minutes for this encounter. Time includes reviewing laboratory test/imaging results, reviewing pertinent medical records, obtaining and reviewing medical history, performing an appropriate exam, ordering medications,
tests and procedures. Time also includes documentation of this encounter, coordinating patient care and communicating with other healthcare professionals. Total time does not include separately billed tests performed on this date of service.
Data:
CXR 03/27/2024: No radiographic evidence of acute cardiopulmonary abnormality.
Subjective Data
-
Date of Service:
Date of Service: March 28, 2024
Chief Complaint: Pulmonary Follow Up
Subjective:
Patient seen and evaluated today at bedside. Family members at bedside including daughter, Thuy, and son, Sung. All questions were answered. Current BP 133/58, heart rate 85 and saturating 97% on 2 L/min nasal cannula. She feels well,
forgetful at times, and wore her BiPAP overnight on 22/12 bled with 4 L/min. VBG this morning shows pH 7.29, pCO2 76. Patient denies MADDOX, CP, SOB at rest, abdominal pain, nausea, vomiting, fevers or chills.
Review of Systems
General: Other (Negative unless mentioned above)
Objective Data
Data Reviewed
Vital Signs / I&O / Oxygen:
Vital Signs
Temp Pulse Resp BP Pulse Ox
98.1 F 98 18 132/69 97
03/28/24 03:10 03/28/24 07:50 03/28/24 07:23 03/28/24 07:50 03/28/24 07:23
Intake and Output
03/27/24 03/28/24 03/29/24
06:59 06:59 06:59
Intake Total 940 / 940
Output Total 525 / 525
Balance 415 / 415
SaO2 97
Nasal Cannula flow liters per 2
minute
Physical Exam
General: Respiratory Distress (negative) and Comfortable
HEENT: Normocephalic and Anicteric
Cardiovascular: S1-S2, Peripheral Edema (negative) and Other (Distant cardiac sounds)
Respiratory: Wheeze (negative), Crackles (negative), Rhonchi (negative), Non-Labored Respirations, Stridor (negative) and Other (Diminished breath sounds bilaterally)
GI: Soft, Non Distended, Non Tender and Normal Bowel Sounds
Neurology: Awake, Alert and Tremors (negative)
Skin: Warm, Dry and Jaundice (negative)
Labs/Micro/Reports
Lab Data
03/28/24 05:05
03/28/24 05:05
Microbiology
03/27/24 05:44 Blood/Venous Blood Culture - Preliminary
No Growth in 24 hours- Final report to follow
--- NOTE | 2024-03-28 10:12 | W.PN.HOSP.TC ---
Today's Communication/Plan
-
PT/OT
transfer tele
see note
Assessment / Plan
Assessment / Plan
1. Acute on chronic hypoxic/hypercapnic respiratory failure
COPD flareup
-Patient with known history of chronic hypoxic/hypercapnic respiratory failure and uses BiPAP for 4 hours at night only
-Admission VBG showing low pH with increased pCO2, which improved post BiPAP therapy
-Patient mentation is better today and repeat VBG showing some persistent hypercapnia, although clinically no concern of having any acute component of CO2 narcosis
-Patient to continue on nighttime BiPAP use while in hospital, educated to continue using it at home
-Patient maintained on IV steroids/azithromycin as part of COPD flare treatment
-Continue nebulizer therapy
-Pulmonology following and help appreciated
2. Acute metabolic encephalopathy
-From worsening hypercapnic respiratory failure, improved
-Avoid sedating medication as possible, on Xanax at home.
3. Type II DM
-Blood glucose uncontrolled with likely need of steroids
-Beside sliding scale add NovoLog 3u premeal
4. Benign Hypertension
- Stable.
- cont Amlodipine, Diltiazem
5. Hx PE/DVT
-Continue on Eliquis therapy
6. Hyperkalemia
-Minimal, maintain on low potassium diet
-Already getting home dose of Lasix today
-Not on any [place]/ARB
Obesity
Chronic back pain
Generalized anxiety
On palliative care
History of SIBO
Peripheral artery disease status post right fem pop bypass
Former tobacco use
Pulmonary hypertension
GERD
History of appendectomy
History of cholecystectomy
DVT Px: Chr Eliquis
Code: DNR/DNI
Total time spent : 53 mins
Discussed care plan with softball player and family was at bedside
Remains at risk of repeat hypoxic respiratory failure/encephalopathy and needing of BiPAP therapy
Anticipated Discharge: > 48 hours
Subjective/Interval History
-
Date of Service: March 28, 2024
Resting comfortably in bed
Mentation clear
On 3 to oxygen through nasal cannula
No other acute issues reported overnight
Objective Data
-
Labs:
Laboratory Results
03/28/24
05:05
WBC 9.4
Hgb 11.9 L
Hct 37.5
Plt Count 171
Sodium 139
Potassium 5.3 H D
Chloride 97 L
Carbon Dioxide 37 H
BUN 29 H
Creatinine 0.8
Glucose 244 H
Calcium 9.3
Vital Signs:
Vital Signs
Temp Pulse Resp BP Pulse Ox
98.1 F 98 18 132/69 97
03/28/24 03:10 03/28/24 07:50 03/28/24 07:23 03/28/24 07:50 03/28/24 07:23
I&O
03/27/24 03/28/24 03/29/24
06:59 06:59 06:59
Intake Total 940 / 940
Output Total 525 / 525
Balance 415 / 415
Review of Systems
-
Respiratory: Reports No Symptoms
Cardiac: Reports No Symptoms
Abdomen/GI: Reports No Symptoms
Physical Exam
-
General: Comfortable
HEENT: Moist Mucous Membranes and Oxygen (3 L NC)
Respiratory: Other (on 2 L of O2); Negative Wheezes
Cardiac: Regular Rhythm and S1/S2; Negative Murmur or Rub
GI: Soft, Nontender, Nondistended and Normal Bowel Sounds
Musculoskeletal: No Edema
Skin: Negative Rash
Neuro: Awake, Alert, Oriented and Nonfocal/Grossly Intact
[2024-03-28] MEDS: NOVOLOG FLEXPEN 3 UNITS SC ×2 (12:56→17:43)
[2024-03-28] MEDS: NOVOLOG FLEXPEN-MODERATE RESISTANCE 1 UNITS SC (12:57)
[2024-03-28 13:06] LABS: Glucose - Point of Care 185 mg/dl (70-99)
--- NOTE | 2024-03-28 14:29 | CM ---
Cm was consulted to confirm home services. As per daughter, patient is not active with any home care agencies. She does have a history of [facility] and [facility]. Patient's daughter would be agreeable to [facility] as she did not have a good experience
with [facility]. Referral sent to queen producer.
CM discussed private pay [facility] care and daughter declined resources.
Daughter would be agreeable to a referral to [facility]. Referral for services sent.
--- NOTE | 2024-03-28 15:10 | VNURNOTE ---
Home Health Liaison met with patient and daughter Thuy to discuss [facility] nurse/therapy, visits, schedule and homebound status. Patient is agreeable and understands that visits at home will be 1-3 x per week to assess and teach medical management
and wound care. The patient stated she had [facility] briefly but no longer receives their services. Patient stated she is current with [facility] at home. Her daughter Thuy wants her to receive nursing services. This author verified w/[facility]
survey supervisor Krystina Ramirez that we can accept if not receiving [facility]. Explained to daughter and patient that patient cannot receive both [facility] and [facility]. Daughter agreeable and will call [facility] to stop their service. Provided daughter Thuy
w/ [facility] contact information. Patient is aware that [facility] will contact them for start of care within a few days after discharge from . [facility] referral completed in [facility].
--- NOTE | 2024-03-28 15:39 | PTCARENOTE ---
report given to 3W RN.
[2024-03-28 17:33] LABS: Glucose - Point of Care 228 mg/dl (70-99)
[2024-03-28 21:28] LABS: Glucose - Point of Care 173 mg/dl (70-99)
[2024-03-29 03:50] VITALS: PULSE 2
--- NOTE | 2024-03-29 03:51 | DOWNTIME ---
There was a [facility] Client Canteen Manager Downtime on 03/29/2024 from 0100 to 03/29/2024 at 0252. Downtime documentation of patient's care, including medication administrations, has been reconciled in the electronic record per guidelines. Refer to the
patient's paper chart under the miscellaneous tab to see printed paper medication records and downtime forms.
[2024-03-29 03:58] VITALS: BP 150/69; BMI 20.3
[2024-03-29 07:00] VITALS: BP 154/70
[2024-03-29 07:00] LABS: Venous Blood Gas B.E. 10.8 mmol/L (-4 to +4); Venous Blood Gas HCO3 39.7 mmol/L (22-27); Venous Blood Gas O2 Sat % 79.7 %; Venous Blood Gas pH 7.32 (7.32-7.43); Venous Blood Gas pO2 45 mmHg (30-50)
[2024-03-29 07:03] LABS: Venous Blood Gas pCO2 77 mmHg (35-48)
[2024-03-29] MEDS: STRIVERDI RESPIMAT 2 PUFF INH (07:19)
[2024-03-29] MEDS: DUONEB 3 ML INH ×2 (07:19→15:01)
[2024-03-29] MEDS: PULMICORT 0.25 MG INH (07:19)
[2024-03-29 07:24] LABS: Hematocrit 36.7 % (37.0-47.0); Hemoglobin 11.6 g/dL (12.0-16.0); Mean Corp Hgb Conc. 31.6 g/dL (33.0-37.0); Mean Corpuscular Hgb 30.7 pg (27.0-31.0); Mean Corpuscular Volume 97.1 fL (81.0-99.0); Mean Platelet Volume 9.9 fL (7.4-10.4); Platelet Count 205 10^3/uL (130-400); Red Blood Cell Count 3.78 10^6/uL (4.20-5.40); Red Cell Dist. Width 12.5 % (11.5-14.5); White Blood Cell Count 9.5 10^3/uL (4.8-10.8)
[2024-03-29 07:27] LABS: Glucose - Point of Care 196 mg/dl (70-99)
[2024-03-29] MEDS: LEXAPRO 20 MG PO (07:58)
[2024-03-29] MEDS: MUCINEX 1200 MG PO (07:58)
[2024-03-29] MEDS: ZITHROMAX 250 MG PO (07:58)
[2024-03-29] MEDS: ELIQUIS 5 MG PO (07:58)
[2024-03-29] MEDS: DECADRON 4 MG IV (07:59)
[2024-03-29] MEDS: GLUCOPHAGE XR EXTENDED RELEASE 500 MG PO (07:59)
[2024-03-29] MEDS: CARDIZEM CD 240 MG PO (07:59)
[2024-03-29] MEDS: PROTONIX 40 MG PO (07:59)
[2024-03-29] MEDS: NORVASC 5 MG PO (07:59)
[2024-03-29 08:00] LABS: Blood Urea Nitrogen 36 mg/dl (7-17); Calcium 9.6 mg/dl (8.4-10.2); Chloride 96 mmol/L (98-107); Estimated Creatinine Clearance 44 ml/min; Glucose 192 mg/dl (70-99); Phosphorus 3.2 mg/dl (2.5-4.5); Potassium 4.6 mmol/L (3.5-5.1); Sodium 141 mmol/L (135-145); eGFR > 60.00
[2024-03-29] MEDS: NOVOLOG FLEXPEN 3 UNITS SC ×2 (08:00→12:56)
[2024-03-29] MEDS: NOVOLOG FLEXPEN-MODERATE RESISTANCE 1 UNITS SC (08:00)
[2024-03-29 08:14] LABS: Carbon Dioxide 34 mmol/L (22-30)
--- NOTE | 2024-03-29 08:59 | W.PN.PUL.V3 ---
Today's Communication / Plan
-
Wean oxygen
Increase activity
Continue nebulizers
Continue azithromycin
Decadron without change-consider changing to prednisone in the next 24 hours
Assessment
-
Assessment: 78-year-old female former tobacco smoker with past medical history of COPD on home oxygen, chronic hypercapnic respiratory failure on nocturnal NIV via Trilogy, hypertension, DM type II, bilateral PE + LLE DVT on Eliquis, PAD, history
of asthma, anxiety, and chronic gastritis who presents with SOB, fever and upper abdominal discomfort. She has been noncompliant with her nocturnal BiPAP for the last several weeks as she says when she gets up at night to pee she forgets to put it
back on. Initial vitals in the ER showed she was febrile to 100.9 �F, pulse rate 138, breathing at 30 breaths/min, BP 176/104 and saturating 86% on room air. Due to shortness of breath she was placed onto BiPAP at 12/5 bled with 4 L/min with
improvement in sats to 98%. Labs showed mild leukocytosis to 11.6, Hb 12.4, acute on chronic respiratory acidosis with pH 7.28, pCO2 81, serum bicarbonate level 38, troponin negative at <0.012, negative procalcitonin <0.05, and negative COVID
antigen. Blood cultures collected. CXR showed no acute cardiopulmonary abnormality. She was given DuoNebs in the ER, Ativan, Solu-Medrol 125 mg, IV Tylenol and Zithromax. Given her acute respiratory failure with hypercapnia and need for
continuous BiPAP, she was admitted to the IMU and pulmonary service consulted for additional management/recommendations.
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
ambulatory dysfunction
Impression:
#Acute on chronic respiratory failure with hypoxia/hypercapnia due to BiPAP noncompliance
#COPD exacerbation
#Leukocytosis with bandemia � leukocytosis now resolved
#Abnormal urinalysis with trace leukocyte esterase - she remains asymptomatic
#Chronic metabolic alkalosis due to compensation from chronic respiratory acidosis
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
#Former tobacco use disorder with >73-nrlw-ligb history
#DM type II with hyperglycemia (last HbA1c: 6 on 03/27/2024)
#Anemia with history of LUZ
#History of PE/DVT on Eliquis
DNR
Plan:
Respiratory status slowly improving
Continue BiPAP 18/6 cm with oxygen aiming for minimum elation 7-8 L/min at night and during the daytime with naps
Patient's prior home Trilogy detail, albeit it was from 01/2022. Baseline settings were: AVAPS�AE, with TV: 300, min EPAP: 5, max EPAP: 14, min PS: 5, max PS: 30; she had an average IPAP of 18.5, average EPAP of 8.7, average VTe 355 mL,
average minute ventilation: 7.3L/min, average breaths per minute: 20.3.
Occasional ABG
Consider Diamox if alkalotic
Continue supplemental oxygen as needed
Baseline home oxygen 2-3 L at rest and 4 L with activity
Decadron with slow taper-consider changing to prednisone in the next 24 hours with slow taper
Continue with budesonide and striverdi with DuoNebs TID with prn xopenex for breakthrough symptoms
Mucolytics continue with mucinex
Continue with Zithromax for anti-inflammatory effect - give for 5 days and then stop
Observe off antibiotics
Trend WBC
If abdominal discomfort progresses or if she becomes febrile again then consider checking CT abdomen/pelvis and sputum Cx
Diuresis as tolerated
Monitor renal function, electrolytes, intake/output, lower extremity edema and weight
Replace electrolytes as needed
DVT prophylaxis-on Eliquis
Nutrition
Early mobilization
Previously the goals of care were discussed with hospitalist, Dr. Milton Mullins, and patient is now DNR/DNI.
We will arrange for outpatient pulmonary office follow-up with Dr. Gamino. Last office visit on 11/24/2023 and she has an upcoming appointment on 03/29/2024 at 4PM which will need to be rescheduled.
Consider addition of PD 3, 4 inhibitor newly approved and released for COPD
Data:
CXR 03/27/2024: No radiographic evidence of acute cardiopulmonary abnormality.
Subjective Data
-
Date of Service:
Date of Service: March 29, 2024
Chief Complaint: Pulmonary Follow Up, Dyspnea Follow Up and Other (COPD exacerbation)
Subjective:
Feels slightly better, tolerated BiPAP, no complaints of shortness of breath at rest, continues with dyspnea with minimal exertion, no chest pain, chest tightness, congestion or productive cough, no abdominal pain
Review of Systems
General: Other (Per HPI)
Objective Data
Data Reviewed
Vital Signs / I&O:
Vital Signs
Temp Pulse Resp BP Pulse Ox
97.5 F 94 16 154/70 97
03/29/24 03:58 03/29/24 07:59 03/29/24 07:20 03/29/24 07:59 03/29/24 07:20
Intake and Output
03/28/24 03/29/24 03/30/24
06:59 06:59 06:59
Intake Total 940 / 940 240 / 240
Output Total 525 / 525 200 / 200
Balance 415 / 415 40 / 40
SaO2: 97
Nasal Cannula flow liters per minute: 2
Physical Exam
General: Respiratory Distress (negative) and Comfortable
HEENT: Normocephalic and Anicteric
Cardiovascular: Regular Rhythm, Peripheral Edema (negative) and Other (Distant cardiac sounds)
Respiratory: Wheeze (negative), Crackles (negative), Rhonchi (negative), Non-Labored Respirations, Stridor (negative) and Other (Diminished breath sounds bilaterally)
GI: Soft, Non Distended, Non Tender and Normal Bowel Sounds
Neurology: Awake, Alert, No Motor Deficits and Tremors (negative)
Skin: Warm, Good Color, Cyanosis (n), Jaundice (negative) and Rash (n)
Labs/Micro/Reports
Lab Data
03/29/24 06:48
03/29/24 06:48
Microbiology
03/27/24 05:44 Blood/Venous Blood Culture - Preliminary
No Growth in 48 hours- Final report to follow
--- NOTE | 2024-03-29 10:36 | PN.CDI ---
CDI
- -
CDI:
Physician Documentation Request
Admit Date: 03/27/24 03:11
Dear Doctor Harpreet,
Patient admitted for COPD flare.
03/27 Parts Sales Associate Assessment: '122 lbs 12 .76 oz BMI 21.1 normal range . Pts weight previous admission listed as 136 lbs 08/13 reflective of a 14 lb (10%) weight loss in [address] During visit RD able to observe temporal wasting and
protrusion of clavical as well as some apparent ribs. With < 75% estimated needs in > 1 month and observed muscle and fat wasting pt meets AND/ASPEN criteria for moderate protein calorie malnutrition of chronic illness.'
Based on the above information and your assessment, which of the following most accurately represents the patient's nutritional status?
Moderate protein calorie malnutrition
Other
[place] Criteria ([facility] Hospitalist 2017)
2 or more criteria must be present for either
non severe or severe malnutrition
Note that the criteria differs related to the
presence of an acute or chronic illness
Acute Illness Chronic Illness
Energy Intake Non Severe: <75% for >7 days Non Severe: <75% for >1 month
Severe: <50% for >5 days Severe: <75% for >1 month
Weight Loss Non Severe: 1-2% over 1 week Non Severe: 5% over 1 month
5% over 1 month 7.5% over 3 months
7.5% over 3 months 10% over 6 months
1 year N/A 20% over 1 year
Severe: >2% over 1 week Severe: >5% over 1 month
>5% over 1 month >7.5% over 3 months
>7.5% over 3 months >10% over 6 months
1 year N/A >20% over 1 year
Body Fat Non Severe: Mild Decrease Non Severe: Mild Loss
Severe: Moderate Decrease Severe: Severe Loss
Muscle Mass Non Severe: Mild Decrease Non Severe: Mild Loss
Severe: Moderate Decrease Severe: Severe Loss
Fluid Accumulation Non Severe: Mild Accumulation Non Severe: Mild Accumulation
Severe: Moderate to severe Severe: Moderate to severe
accumulation accumulation
Reduced Greenskeeper Laborer Strength Non Severe: N/A Non Severe: N/A
Severe: Measurably reduced Severe: Measurably reduced
Additional criteria that can be used to Determine if Mild or Moderate Malnutrition (Merck Manual 2018)
Mild Moderate Severe
Albumin gm/dl <3.0 gm/dl <2.5 gm/dl <2.0 gm/dl
Pre Albumin mg/dl <15 gm/dl <10 mg/dl <5.0 mg/dl
BMI <18.5 <17 <16
Use of terms such as suspected, likely, concern for, or probable (associated with a specific diagnosis that is being evaluated, monitored, or treated as if it exists) are acceptable and can be coded in the inpatient setting, when documented at the
time of discharge.
Thank you,
Bertha Michel RN, BSN
CDI Specialist
Available via [place] text
Please use your independent medical judgment in providing your response.
[2024-03-29 11:00] VITALS: BP 150/60
[2024-03-29 12:27] LABS: Glucose - Point of Care 263 mg/dl (70-99)
--- NOTE | 2024-03-29 12:43 | W.PN.HOSP.TC ---
Addendum entered and electronically signed by Milton Mullins MD 03/30/24 07:52:
Add on diagnosis :
Stage I POA on sacrum
Mod PCM
Original Note:
Today's Communication/Plan
-
d/c home health
Assessment / Plan
Assessment / Plan
1. Acute on chronic hypoxic/hypercapnic respiratory failure
COPD flare-up
-Patient with known history of chronic hypoxic/hypercapnic respiratory failure and uses BiPAP for 4 hours at night only
-Admission VBG showing low pH with increased pCO2, which improved post BiPAP therapy
-Repeat VBG showing some persistent hypercapnia which is chronic, clinically no concern of having any acute component of CO2 narcosis
-Patient to continue on nighttime BiPAP use while in hospital, educated to continue using it at home at night time and not for 4hrs only
-Continue nebulizer therapy
-Pulmonology following and help appreciated
-Transition patient to oral prednisone/azithromycin at discharge.
2. Acute metabolic encephalopathy -resolved
-From worsening hypercapnic respiratory failure, improved
-Avoid sedating medication as possible, on Xanax at home.
3. Type II DM
-Blood glucose uncontrolled with likely need of steroids
-Beside sliding scale add NovoLog 3u premeal
4. Benign Hypertension
- Stable.
- cont Amlodipine, Diltiazem
5. Hx PE/DVT
-Continue on Eliquis therapy
6. Hyperkalemia
-Minimal, maintain on low potassium diet
-Already getting home dose of Lasix today
-Not on any [place]/ARB
7. Mod PCM
-encourage protein intake
Obesity
Chronic back pain
Generalized anxiety
On palliative care
History of SIBO
Peripheral artery disease status post right fem pop bypass
Former tobacco use
Pulmonary hypertension
GERD
History of appendectomy
History of cholecystectomy
DVT Px: Chr Eliquis
Code: DNR/DNI
Discussed with Patient Daughter at Bedside. Both Are in agreement for Patient Going Home. Patient Declining to Be Discharged to Rehab
More than 30 minutes spent in discharge including
Final examination of the patient
Summarizing hospital stay
Instructions for continuing care to all relevant caregivers
Preparation of discharge records, prescriptions, and referral forms
Total time spent (in minutes): 38 mins
Anticipated Discharge: Today
Subjective/Interval History
-
Date of Service: March 29, 2024
resting comfortably in bed
remains on o2 through NC
no acute issues reported overnight
Objective Data
-
Labs:
Laboratory Results
03/29/24
06:48
WBC 9.5
Hgb 11.6 L
Hct 36.7 L
Plt Count 205
Sodium 141
Potassium 4.6
Chloride 96 L
Carbon Dioxide 34 H
BUN 36 H
Creatinine 0.9
Glucose 192 H
Calcium 9.6
Vital Signs:
Vital Signs
Temp Pulse Resp BP Pulse Ox
97.7 F 96 17 150/60 97
03/29/24 11:00 03/29/24 11:00 03/29/24 11:00 03/29/24 11:00 03/29/24 11:00
I&O
03/28/24 03/29/24 03/30/24
06:59 06:59 06:59
Intake Total 940 / 940 240 / 240
Output Total 525 / 525 200 / 200
Balance 415 / 415 40 / 40
Review of Systems
-
Respiratory: Reports No Symptoms
Cardiac: Reports No Symptoms
Abdomen/GI: Reports No Symptoms
Physical Exam
-
General: Comfortable
HEENT: Moist Mucous Membranes and Oxygen (3 L NC)
Respiratory: Other (on 2 L of O2); Negative Wheezes
Cardiac: Regular Rhythm and S1/S2; Negative Murmur or Rub
GI: Soft, Nontender, Nondistended and Normal Bowel Sounds
Musculoskeletal: No Edema
Skin: Negative Rash
Neuro: Awake, Alert, Oriented and Nonfocal/Grossly Intact
[2024-03-29] MEDS: NOVOLOG FLEXPEN-MODERATE RESISTANCE 5 UNITS SC (12:55)
--- NOTE | 2024-03-29 13:16 | CM ---
Reviewed chart, patient medically cleared for discharge. Met with patient who signed IMM. She is agreeable to VN. Referral made. She stated that her daughter will be in to pick her up. Offer was made for CM to call her daughter but she confirmed
that she can do it.
Plan: Case management will continue to follow and assist with discharge planning. Patient's daughter will pick her up.
--- NOTE | 2024-03-29 14:51 | PN.CDI ---
CDI
- -
CDI:
Physician Documentation Request
Admit Date: 03/27/24 03:11
Dear Doctor Harpreet,
Patient admitted for COPD flare.
03/28 PCN: 'foam on sacrum for small stage 1.'
Physician documentation of the type and location of wounds is required for compliant documentation. Based on the above clinical findings and your assessment, please provide the following in your progress note:
1. Location of the ulcer/wound, including laterality.
2. Type (etiology) of ulcer/wound:
- Diabetic ulcer
- Arterial (ischemic) ulcer
- Traumatic wound
- Venous stasis ulcer
- Pressure (decubitus) ulcer
- Non-healing surgical wound
- Other
- Unable to determine
3. For a non-pressure ulcer, please indicate the depth/severity:
- Limited to the breakdown of skin
- With fat layer exposed
- With necrosis of muscle
- With necrosis of bone
- Other
- Unable to determine
4. If a pressure ulcer, please also include the stage* of the ulcer:
- Stage 1 - Skin intact, non-blanchable redness
- Stage 2 - Partial thickness loss of dermis, includes intact or open blister
- Stage 3 - Full thickness tissue not including bone, tendon or muscle
- Stage 4 - Full thickness tissue loss, including exposed bone, tendon or muscle
- Unstageable - Full thickness loss in which the base of the ulcer is covered by slough (yellow, villa, aguiar, green or brown) and/or eschar (villa, brown or black) in the wound bed.
- Unable to determine
Use of terms such as suspected, likely, concern for, or probable (associated with a specific diagnosis that is being evaluated, monitored, or treated as if it exists) are acceptable and can be coded in the inpatient setting, when documented at the
time of discharge.
Thank you,
Bertha Michel RN,BSN
CDI Specialist
Available via [place] text
Please use your independent medical judgment in providing your response.
*Source: National Pressure Ulcer Advisory Panel (NPUAP)
[2024-03-29 15:00] VITALS: BP 131/59
--- NOTE | 2024-03-29 15:58 | VNURNOTE ---
Received update from [facility] Intake that patient was opened with [facility]. Called patient's daughter, no answer. Called patient and confirmed she wants [facility]. Instructed her that she or daughter need to call [facility] to discontinue services.
Informed her again [facility] cannot schedule her until discharged from other agency. Patient verbalized understanding.
--- NOTE | 2024-03-30 07:59 | W.DCSUMMARY ---
Discharge Summary
Discharge Data
Date of Admission: 03/27/24
Date of Discharge: 03/29/24
-
Pending Results: No
Hospital Course
Discharging Physician : Dr Milton Mullins
Disposition : Home with home health
Primary care physician : Dr Hay Browne
Principal Discharge diagnosis :
Acute on chronic hypoxic/hypercapnic respiratory failure
Chronic obstructive pulmonary disease
Acute metabolic encephalopathy
Hyperkalemia
Chronic Discharge diagnosis :
Type 2 diabetes mellitus
Essential hypertension
History of pulmonary embolism/deep venous thrombosis
Moderate protein calorie malnutrition
Obesity
Chronic back pain
History of small intestinal bacterial overgrowth
Peripheral artery disease status post right femoral to popliteal bypass
Former tobacco use
Pulmonary hypertension
Gastroesophageal reflux disease
History of appendectomy
History of cholecystectomy
Hospital Course :
Patient is 78-year-old female with mentioned past medical history was sent to ER for having new onset of shortness of breath and associated hypoxia. In ER evaluation patient was noted to having worsening hypercapnic respiratory failure secondary to
COPD flareup. Patient was placed on BiPAP therapy and was admitted to IMU for further monitoring. Pulmonology was involved in care. Follow-up blood gas analysis showing patient hypercapnia improving. Patient to have component of chronic
hypercapnic respiratory failure which was appropriately compensated based on lab evaluation. Patient was recommended to use continuous BiPAP during nighttime rather than 4 hours only. For patient COPD flareup patient was treated with IV
steroids/nebulizer and azithromycin course. Patient had associated metabolic encephalopathy which resolved as well. Patient was evaluated by physical therapy and was deemed appropriate for rehab although patient and family chose patient to go home
with home health care. Of note patient is following with palliative care physician outpatient basis and was recommended to continue following up with them.
Important imaging findings :
None
Procedure findings :
None
Discharge Plan
-
Patient Disposition: Home with Home Care
Discharge Diagnosis/Procedures: COPD flare up, Acute hypercapnic resp failure on chronic hypoxic/hypercapnic resp failure
Condition: Fair
Diet: Diabetic, Carb Controlled
Activity: As tolerated
Driving Restrictions: No driving
Bathing Restrictions: OK to Shower
Referrals:
Issa Cormier MD [Active] - in one to two weeks
Hay Browne DO [Family Provider] - in one week
Prescriptions:
New
prednisone 10 mg Tablet
See Rx Instructions .ROUTE .COMPLEX Qty: 45 0RF
Rx Instructions:
Take By Mouth:
50 mg daily x3 days, 40 mg daily x3 days,
30 mg daily x3 days, 20 mg daily x3 days,
10 mg daily x3 days
azithromycin 250 mg tablet
250 mg PO DAILY 5 Days Qty: 5 0RF
Continued
amlodipine 5 MG tablet
5 mg PO DAILY
metformin 500 MG tablet extended release 24 hr
500 mg PO BID@0800,1700
guaifenesin [Mucus Relief ER] 600 MG tablet extended release 12hr
600 mg PO BIDPRN PRN (Reason: post nasal drip)
diltiazem HCl 240 MG capsule,extended release 24hr
240 mg PO DAILY Qty: 30 0RF
ipratropium-albuterol 0.5 mg-3 mg(2.5 mg base)/3 mL Solution For Nebulization
3 ml INHALATION R QID
alprazolam [Xanax] 0.5 mg Tablet
0.25 mg PO DAILY
furosemide 20 mg Tablet
20 mg PO Q48H
formoterol fumarate [Perforomist] 20 mcg/2 mL Solution For Nebulization
20 mcg INHALATION R BID
prednisone 10 MG tablet
5 mg PO DAILY
budesonide 0.25 mg/2 mL Suspension For Nebulization
0.25 mg INHALATION R BID
escitalopram oxalate [Lexapro] 20 mg Tablet
20 mg PO DAILY
Eliquis 5 mg Tablet
5 mg PO BID
Probiotic 3 billion cell Capsule
3,000 mmu cells PO DAILY
pantoprazole 40 mg tablet,delayed release (DR/EC)
40 mg PO BID
alprazolam [Xanax] 0.5 mg Tablet
0.25 mg PO DAILYPRN PRN (Reason: anxiety)
Discharge Orders:
Discharge Patient (As Directed); Ordered 03/29/24
Ordered By: Milton Mullins
Discharge Date and Time
Discharge Date/Time: 03/29/24 16:31
Print Language: GERMAN
== END 2024-03-29 16:31 | disposition home health service (06) | DRG 190 ==
LOC: 3 WEST ACU 03:11
PROVIDERS: Physician Assistant; ADMITTING PHYSICIAN Internal Medicine; ATTENDING PHYSICIAN Hospitalist; EMERGENCY PHYSICIAN Emergency Medicine; FAMILY PHYSICIAN Family Medicine; OTHER PHYSICIAN Internal Medicine Critical Care Medicine
PROC: 5A09357 Assistance with Respiratory Ventilation, Less than 24 Consecutive Hours, Continuous Positive Airway Pressure (ICD-10-PCS; 2024-03-27)
DX: J43.9 Emphysema, unspecified (principal); G93.41 Metabolic encephalopathy; J96.21 Acute and chronic respiratory failure with hypoxia; J96.22 Acute and chronic respiratory failure with hypercapnia; E87.3 Alkalosis; E44.0 Moderate protein-calorie malnutrition; I10 Essential (primary) hypertension; E11.51 Type 2 diabetes mellitus with diabetic peripheral angiopathy without gangrene; E78.00 Pure hypercholesterolemia, unspecified; F41.1 Generalized anxiety disorder; I25.10 Atherosclerotic heart disease of native coronary artery without angina pectoris; M54.50 Low back pain, unspecified; G89.29 Other chronic pain; D72.825 Bandemia; D64.9 Anemia, unspecified; R82.90 Unspecified abnormal findings in urine; I27.20 Pulmonary hypertension, unspecified; F32.A Depression, unspecified; E87.5 Hyperkalemia; R26.2 Difficulty in walking, not elsewhere classified; L89.151 Pressure ulcer of sacral region, stage 1; K21.9 Gastro-esophageal reflux disease without esophagitis; Z66 Do not resuscitate; Z79.01 Long term (current) use of anticoagulants; Z79.51 Long term (current) use of inhaled steroids; Z86.718 Personal history of other venous thrombosis and embolism; Z86.711 Personal history of pulmonary embolism; Z87.891 Personal history of nicotine dependence; Z90.49 Acquired absence of other specified parts of digestive tract; Z91.199 Patient's noncompliance with other medical treatment and regimen due to unspecified reason; Z99.81 Dependence on supplemental oxygen; Z11.52 Encounter for screening for COVID-19; Z87.19 Personal history of other diseases of the digestive system; Z83.3 Family history of diabetes mellitus; Z79.52 Long term (current) use of systemic steroids; Z68.20 Body mass index [BMI] 20.0-20.9, adult
CPT/HCPCS: 36600; 71045; 80048; 80053; 82805; 82962; 83036; 83735; 84100; 84145; 84484; 85025; 85027; 86803; 87040; 87811; 92610; 93005; 94640; 94644; 94660; 96365; 96375; 97163; 97167; 97530; 99291

== ENCOUNTER → 2024-11-13 14:31 | Outpatient (REF) | payer MEDICARE, OTHER, SELFPAY ==
[2024-11-13 15:40] LABS: % Basophils 0.5 % (0-2); % Eosinophils 1.4 % (0-6); % Immature Granulocytes 0.2 % (0-0.5); % Lymphocytes 12.3 % (20.5-51.1); % Monocytes 7.4 % (1.7-9.3); % Neutrophils 78.2 % (42.2-75.2); Absolute Eosinophils 0.1 10^3/uL (0-0.7); Absolute Lymphocytes 0.7 10^3/uL (1.2-3.4); Absolute Monocytes 0.4 10^3/uL (0.1-0.6); Absolute Neutrophils 4.6 10^3/uL (1.4-6.5); Hematocrit 36.3 % (37.0-47.0); Hemoglobin 11.5 g/dL (12.0-16.0); Mean Corp Hgb Conc. 31.7 g/dL (33.0-37.0); Mean Corpuscular Hgb 29.8 pg (27.0-31.0); Nucleated Red Blood Cells % 0 %; Platelet Count 188 10^3/uL (130-400); Red Blood Cell Count 3.86 10^6/uL (4.20-5.40); Red Cell Dist. Width 12.2 % (11.5-14.5); White Blood Cell Count 5.8 10^3/uL (4.8-10.8)
[2024-11-13 15:54] LABS: Total Iron Binding Capacity 242 ug/dl (265-497)
[2024-11-13 16:22] LABS: Ferritin 49.6 ng/ml (11.1-264.0)
== END ==
LOC: REG 14:31
PROVIDERS: ATTENDING PHYSICIAN Family Medicine
DX: D64.9 Anemia, unspecified (principal)
CPT/HCPCS: 36415; 82728; 83550; 85025

== ENCOUNTER 2024-11-17 14:36 | Inpatient (IN) | payer MEDICARE, OTHER, SELFPAY ==
[2024-11-17] VITALS (10 sets, daily range): BP systolic 128–143; BP diastolic 64–85; PULSE 2–95; BMI 22.1; BMI 20.8
--- NOTE | 2024-11-17 11:09 | ED.GENMED ---
History of Present Illness
<SCOTT Vick Last Filed: 11/17/24 13:50>
General
Chief Complaint: Breathing Problem
Source: patient
Exam Limitations: none
Time Seen by Provider: 11/17/24 10:58
History of Present Illness
History of Present Illness:
78-year-old female with history of COPD, CHF presents complaining of upper abdominal discomfort and shortness of breath. She also has been fatigued without a fever worsening over the past week. She denies leg swelling. She notes intermittent
episodes of nausea but no vomiting. She denies chest pain. She has been using her inhalers and nebulizers without relief. He is on 2-1/2 L of nasal oxygen but more recently had 3 L.
Past History
<SCOTT Vick Last Filed: 11/17/24 13:50>
Past History
ED Past Medical History: Asthma, COPD, GERD, HTN, Hypercholesterolemia and NIDDM
ED Past Surgical History: Appendectomy, Cholecystectomy and Other (fempop bypass bilaterally)
Social History
Tobacco: Former smoker
Alcohol: Occasional
Drug: None
Personal:
Living: with family
Family History
Family History: Other
Phy Exam
<SCOTT Vick Last Filed: 11/17/24 13:50>
Physical Exam
Physical Exam:
General: Well-developed female with increased work of breathing
HEENT normocephalic atraumatic
Heart: Regular rate and rhythm
Lungs: Diminished breath sounds bilaterally
Abdomen soft tender to the right upper quadrant no guarding no rebound tenderness
Extremities: No cyanosis
Skin: Warm no rash
Scores
<SCOTT Vick Last Filed: 11/17/24 13:50>
Heart Failure Risk
Heart Failure Risk Score: Not Applicable
Course
<Addison Field PA-C - Last Filed: 11/17/24 13:50>
Orders/Labs/Results
Orders:
Orders
11/17/24 11:05
Ipratropium/Albuterol Sulfate [Duoneb] 3 ml INH R NOW STA
CR Chest - 2 Views Urgent
Comment:
Reason For Exam: sob
US Abdomen Complete/Upper Urgent
Comment:
Reason For Exam: ruq pain
11/17/24 11:07
Electrocardiogram (*1) Urgent
Reason for Study: Shortness of Breath
EKG- Treatment ONCE
11/17/24 12:33
Complete Blood Count/With Diff Urgent
Comprehensive Metabolic Panel Urgent
Lipase Urgent
Troponin I Urgent
Venous Blood Gas Urgent
%Oxygen/Room Air: 4l
11/17/24 13:11
Dexamethasone Sod Phosphate [Decadron] 10 mg IV NOW STA
11/17/24 13:31
Bipap [RESP] Urgent
Patient to use own unit?: No
Inspiratory Pressure (cm H2O): 12
Expiratory Pressure (cm H2O): 5
11/17/24 13:39
PULMONARY CONSULT Routine
Consulting Provider: Boby Nunn
Was physician already notified: Yes
Abnormal Lab Results
11/17/24
12:33
RBC 3.88 L 10^6/uL
(4.20-5.40)
Hgb 11.5 L g/dL
(12.0-16.0)
MCHC 31.0 L g/dL
(33.0-37.0)
Absolute Lymphs (auto) 0.9 L 10^3/uL
(1.2-3.4)
Neutrophils % 79.2 H %
(42.2-75.2)
Lymphocytes % 12.6 L %
(20.5-51.1)
VBG pCO2 93 H* mmHg
(35-48)
VBG pO2 75 H mmHg
(30-50)
VBG HCO3 49.0 H mmol/L
(22-27)
Chloride 94 L mmol/L
(98-107)
Glucose 183 H mg/dl
(70-99)
AST 13 L U/L
(14-36)
Total Protein 6.2 L g/dl
(6.3-8.2)
11/17/24 12:33
11/17/24 12:33
Vital Signs
Initial and Last Documented VS:
Initial Vital Signs
Temp Pulse Resp BP Pulse Ox
37.3 C 112 22 143/82 93
11/17/24 10:45 11/17/24 10:45 11/17/24 10:45 11/17/24 10:45 11/17/24 10:45
Last Documented Vital Signs
Temp Pulse Resp BP Pulse Ox
37.3 C 101 19 143/82 96
11/17/24 10:45 11/17/24 12:34 11/17/24 12:34 11/17/24 10:45 11/17/24 12:42
<Bhavesh Rivas, DO - Last Filed: 11/17/24 13:51>
Orders/Labs/Results
Orders:
Orders
11/17/24 11:05
Ipratropium/Albuterol Sulfate [Duoneb] 3 ml INH R NOW STA
CR Chest - 2 Views Urgent
Comment:
Reason For Exam: sob
US Abdomen Complete/Upper Urgent
Comment:
Reason For Exam: ruq pain
11/17/24 11:07
Electrocardiogram (*1) Urgent
Reason for Study: Shortness of Breath
EKG- Treatment ONCE
11/17/24 12:33
Complete Blood Count/With Diff Urgent
Comprehensive Metabolic Panel Urgent
Lipase Urgent
Troponin I Urgent
Venous Blood Gas Urgent
%Oxygen/Room Air: 4l
11/17/24 13:11
Dexamethasone Sod Phosphate [Decadron] 10 mg IV NOW STA
11/17/24 13:31
Bipap [RESP] Urgent
Patient to use own unit?: No
Inspiratory Pressure (cm H2O): 12
Expiratory Pressure (cm H2O): 5
11/17/24 13:39
PULMONARY CONSULT Routine
Consulting Provider: Boby Nunn
Was physician already notified: Yes
Abnormal Lab Results
11/17/24
12:33
RBC 3.88 L 10^6/uL
(4.20-5.40)
Hgb 11.5 L g/dL
(12.0-16.0)
MCHC 31.0 L g/dL
(33.0-37.0)
Absolute Lymphs (auto) 0.9 L 10^3/uL
(1.2-3.4)
Neutrophils % 79.2 H %
(42.2-75.2)
Lymphocytes % 12.6 L %
(20.5-51.1)
VBG pCO2 93 H* mmHg
(35-48)
VBG pO2 75 H mmHg
(30-50)
VBG HCO3 49.0 H mmol/L
(22-27)
Chloride 94 L mmol/L
(98-107)
Glucose 183 H mg/dl
(70-99)
AST 13 L U/L
(14-36)
Total Protein 6.2 L g/dl
(6.3-8.2)
11/17/24 12:33
11/17/24 12:33
Vital Signs
Initial and Last Documented VS:
Initial Vital Signs
Temp Pulse Resp BP Pulse Ox
37.3 C 112 22 143/82 93
11/17/24 10:45 11/17/24 10:45 11/17/24 10:45 11/17/24 10:45 11/17/24 10:45
Last Documented Vital Signs
Temp Pulse Resp BP Pulse Ox
37.3 C 101 19 143/82 96
11/17/24 10:45 11/17/24 12:34 11/17/24 12:34 11/17/24 10:45 11/17/24 12:42
<Addison Field PA-C - Last Filed: 11/17/24 13:50>
MDM/Problems Addressed
Differential Diagnosis Includes:
Patient with fatigue shortness of breath abdominal pain. History of COPD. Currently on 4 L of oxygen and still tachypneic. Will check labs troponin. Nebulizer ordered. Given right upper quadrant tenderness did order ultrasound. No signs of
volume overload. Consider COPD flare versus biliary colic versus pneumonia
<Addison Field PA-C - Last Filed: 11/17/24 13:50>
*Critical Care Note
Total Time (30-74mins, 75-104mins- exclusive of procedures): Not Applicable
<Addison Field PA-C - Last Filed: 11/17/24 13:50>
Update Note
Update Note:
Ultrasound negative. Patient does have some improvement after nebulizer treatment. Ordered steroid. VBG reviewed she is hypercapnic. Patient was admitted to the hospital and started on BiPAP
ED Attending Note
<Addison Field PA-C - Last Filed: 11/17/24 13:50>
-
Portions of this chart may have been created with voice recognition software.� Occasional wrong word or��sound alike� substitutions may have occurred due to the inherent limitations of voice recognition software.
<Bhavesh Rivas, DO - Last Filed: 11/17/24 13:51>
ED Attending Note
Patient seen and examined by attending physician: Yes
I performed the substantive portion of visit, reviewed & personally made and approve the management plan that is documented in note by myself or MARVIN.: Yes
ED Attending Note:
I evaluated the patient at bedside. The patient's VBG shows rather significant hypercapnia. Will add BiPAP at this time. She was given steroids and nebs. Increasing oxygen requirement.
Discharge Plan
Departure
Patient Disposition: Admit
Date of Disposition: 11/17/24
Time of Disposition: 13:48
Presentation/result/management discussed w/ accepting MD/DO: Hospitalist
Discharge Problem:
Acute hypercapnic respiratory failure
Prescriptions:
No Action
amlodipine 5 MG tablet
5 mg PO DAILY
metformin 500 MG tablet extended release 24 hr
500 mg PO BID@0800,1700
guaifenesin [Mucus Relief ER] 600 MG tablet extended release 12hr
600 mg PO BIDPRN PRN (Reason: post nasal drip)
diltiazem HCl 240 MG capsule,extended release 24hr
240 mg PO DAILY Qty: 30 0RF
ipratropium-albuterol 0.5 mg-3 mg(2.5 mg base)/3 mL Solution For Nebulization
3 ml INHALATION R QID
furosemide 20 mg Tablet
20 mg PO Q48H
formoterol fumarate [Perforomist] 20 mcg/2 mL Solution For Nebulization
20 mcg INHALATION R BID
budesonide 0.25 mg/2 mL Suspension For Nebulization
0.25 mg INHALATION R BID
escitalopram oxalate [Lexapro] 20 mg Tablet
20 mg PO DAILY
Eliquis 5 mg Tablet
5 mg PO BID
pantoprazole 40 mg tablet,delayed release (DR/EC)
40 mg PO BID
prednisone 5 mg tablet
5 mg PO DAILY
acetaminophen 500 mg Tablet
1,000 mg PO Q6HPRN PRN (Reason: mild pain/fever)
lorazepam 0.5 mg tablet
0.5 mg PO BIDPRN PRN (Reason: anxiety)
doxycycline monohydrate 100 mg capsule
100 mg PO BID
calcium carbonate [Tums 500] 500 mg calcium (1,250 mg) Tablet,Chewable
500 mg PO BIDPRN PRN (Reason: indigestion)
albuterol sulfate 90 mcg/actuation HFA aerosol inhaler
1 puff INHALATION R Q4HPRN PRN (Reason: sob/wheezing)
sodium chloride 0.9 % Solution For Nebulization
1 ml INHALATION Q6HPRN PRN (Reason: sob)
Referrals:
Hay Browne DO [Family Provider] -
Interventions
Interventions:
*Risk Screen - Suicide Last Done: 11/17/24 10:45
*General Assessment Last Done: 11/17/24 10:45
*ED COVID-19 Vaccine History Last Done: 11/17/24 10:45
ED- Cardiac Assessment Last Done: 11/17/24 12:41
ED- Pulmonary Assessment Last Done: 11/17/24 12:42
Discharge Date and Time
Print Language: THAI
[2024-11-17] MEDS: DUONEB 3 ML INH ×3 (12:35→20:05)
[2024-11-17 12:46] LABS: % Basophils 0.4 % (0-2); % Eosinophils 0.6 % (0-6); % Immature Granulocytes 0.4 % (0-0.5); % Lymphocytes 12.6 % (20.5-51.1); % Monocytes 6.8 % (1.7-9.3); % Neutrophils 79.2 % (42.2-75.2); Absolute Lymphocytes 0.9 10^3/uL (1.2-3.4); Absolute Monocytes 0.5 10^3/uL (0.1-0.6); Absolute Neutrophils 5.6 10^3/uL (1.4-6.5); Hematocrit 37.1 % (37.0-47.0); Hemoglobin 11.5 g/dL (12.0-16.0); Mean Corpuscular Hgb 29.6 pg (27.0-31.0); Mean Corpuscular Volume 95.6 fL (81.0-99.0); Mean Platelet Volume 9.6 fL (7.4-10.4); Nucleated Red Blood Cells % 0 %; Platelet Count 208 10^3/uL (130-400); Red Blood Cell Count 3.88 10^6/uL (4.20-5.40); Red Cell Dist. Width 11.9 % (11.5-14.5); White Blood Cell Count 7.1 10^3/uL (4.8-10.8)
[2024-11-17 12:49] LABS: Venous Blood Gas B.E. 18.7 mmol/L (-4 to +4); Venous Blood Gas O2 Sat % 96.4 %; Venous Blood Gas pH 7.33 (7.32-7.43); Venous Blood Gas pO2 75 mmHg (30-50)
[2024-11-17 12:51] LABS: Venous Blood Gas pCO2 93 mmHg (35-48)
[2024-11-17 13:09] LABS: Troponin I < 0.012 ng/ml
--- NOTE | 2024-11-17 13:14 | HPS.HSE ---
Addendum entered and electronically signed by Kit Soto MD 11/17/24 14:57:
see my update note for addendum
Original Note:
Family Physician
-
Family Physician: Hay Browne
Chief Complaint
-
Shortness of Breath
History of Present Illness
Patient is a 78 y/o female past medical history of chronic hypoxic/hypercarbic respiratory failure, COPD, CHF, DM and DVT/PE who presents with worsening shortness of breath. Additional history is obtained from patient's daughter at the bedside.
Patient reports she has been short of breath for years. Daughter notes patient has been increasing her home oxygen on occasion due to shortness of breath. Daughter notes patient has been more lethargic, fatigued and always wanting to sleep.
Daughter has also noted some transient slurred speech. Daughter brought her to the emergency department as patient's appearance was much worse than usual. Patient reports chronic moist cough which both patient and daughter state is her normal.
Patient denies any lower extremity edema or changes in weight. She denies any fevers, sweats or chills.
Medical History
Past Medical History
Past Medical History: Reports Other
Additional Past Medical History:
Severe COPD
Chronic Hypoxemic / Hypercarbic Respiratory Failure
Chronic HFpEF
Essential Hypertension
DM-II
ASCVD / PAD
History of DVT / PE
Anxiety / Depression
Chronic Ambulatory Dysfunction
Past Surgical History: Reports Other
Additional Past Surgical History:
Appendectomy
Tubal Ligation
Bilateral Fem-Pop Bypasses
Cholecystectomy
Social History
Tobacco: Former Smoker (Quit > 10 years ago. > 50 pack years total use.)
Alcohol: None
Drug: None
Living: With Family
Family History
Family History: Not pertinent
Allergies / Home Medications
Allergies reflects when Allergies were last updated in [facility].
Home Medications with original date entered in [facility]
Allergy/Medication List:
Allergies
Allergy/AdvReac Type Severity Reaction Status Date / Time
No Known Allergies Allergy Verified 11/17/24 10:47
Home Medications
amlodipine 5 mg tablet 5 mg PO DAILY Blood Pressure 08/01/15
metformin 500 mg tablet,extended release 24 hr 500 mg PO BID@0800,1700 Diabetes 03/25/17
guaifenesin 600 mg tablet, extended release 12 hr (Mucus Relief ER) 600 mg PO BIDPRN PRN post nasal drip 11/01/19
diltiazem HCl 240 mg capsule,extended release 24 hr 240 mg PO DAILY #30 caps 11/05/19
apixaban 5 mg tablet (Eliquis) 5 mg PO BID Blood Clot Prevention/Tx 08/12/23
budesonide 0.25 mg/2 mL suspension for nebulization 0.25 mg inhalation R BID Lung/Breathing Issues 08/12/23
escitalopram oxalate 20 mg tablet (Lexapro) 20 mg PO DAILY Depression 08/12/23
formoterol fumarate 20 mcg/2 mL solution for nebulization (Perforomist) 20 mcg inhalation R BID Lung/Breathing Issues 08/12/23
furosemide 20 mg tablet 20 mg PO Q48H Fluid Retention/Swelling 08/12/23
ipratropium 0.5 mg-albuterol 3 mg (2.5 mg base)/3 mL nebulization soln 3 ml inhalation R QID Lung/Breathing Issues 08/12/23
pantoprazole 40 mg tablet,delayed release 40 mg PO BID 03/27/24
acetaminophen 500 mg tablet 1,000 mg PO Q6HPRN PRN mild pain/fever 11/17/24
albuterol sulfate 90 mcg/actuation aerosol inhaler 1 puff inhalation R Q4HPRN PRN sob/wheezing 11/17/24
calcium carbonate 500 mg PO BIDPRN PRN indigestion 11/17/24
doxycycline monohydrate 100 mg capsule 100 mg PO BID 11/17/24
lorazepam 0.5 mg tablet 0.5 mg PO BIDPRN PRN anxiety 11/17/24
prednisone 5 mg tablet 5 mg PO DAILY 11/17/24
sodium chloride 0.9 % for nebulization 1 ml inhalation Q6HPRN PRN sob 11/17/24
Review of Systems
-
A 12 point ROS was completed and negative except as noted: Yes
Constitutional: Denies Fever or Chills
Respiratory: Reports Cough and Trouble Breathing
Cardiac: Denies Chest Pain or Palpitations
Abdomen/GI: Reports Abdominal Pain (Right Upper Quadrant, daughter reports this has been ongoing for sometime. Patient has seen GI who recommended EGD but patient did not want to pursue and she would require clearance due to her chronic respiratory
status)
Physical Exam
Vital Signs
Vital Signs
Temp Pulse Resp BP Pulse Ox
99.2 F 101 19 143/82 96
11/17/24 10:45 11/17/24 12:34 11/17/24 12:34 11/17/24 10:45 11/17/24 12:42
Physical Exam
General: Comfortable and Conversant
HEENT: Oxygen (Nasal Cannula)
Respiratory: Wheezes (Diffuse Inspirator and Expiratory) and Other (Occasional pursed lip breathing)
Cardiac: S1/S2 and Regular Rhythm
GI: Soft and Tender (Right upper quadrant without rebound or guarding)
Rectal: Deferred by Provider
Musculoskeletal: No Clubbing, No Cyanosis and No Edema
Skin: Warm and Dry
Neuro: Other (Answers questions but quickly will drift off closing her eyes, but easily arousable)
Psych: Calm
Laboratory Results
-
11/17/24 12:33
Laboratory Results
Troponin I < 0.012 ng/ml 11/17/24 12:33
Laboratory Tests
11/17/24
12:33
VBG pH 7.33
VBG pCO2 93 H*
VBG pO2 75 H
VBG HCO3 49.0 H
VBG O2 Sat (Mona) 96.4
Sodium 142
Potassium 4.2
Chloride 94 L
Carbon Dioxide 47 H
BUN 14
Creatinine 0.8
Glucose 183 H
Egb-D-Mmlvdobvbby Pept Pending
Data Reviewed
-
Diagnostic Radiology: Report Reviewed by me
Lab Data: Labs Reviewed by me
Old Records: Reviewed
Impression/Plan
-
Acute on Chronic Hypoxemic / Hypercarbic Respiratory Failure
-Start on BiPAP and Admit to IMU
-Consult Pulmonary
-Recheck VBG later this afternoon
Acute COPD Exacerbation
-Continue Decadron
-Continue DuoNeb QID and PRN
-Continue Pulmicort Neb
-Increase Mucinex 600mg BID
-Add Zithromax as anti-inflammatory
Chronic Right Upper Quadrant Pain
-Continue Protonix BID
-Further work-up as outpatient
Chronic HFpEF
-Continue Lasix
-Monitor Is&Os and Daily Weights
Essential Hypertension
-Continue amlodipine adn diltiazem
Diabetes Mellitus, Type II
-Continue metformin
-Monitor sugars and continue coverage insulin
History of DVT / PE
-Continue Eliquis
Anxiety / Depression
-Hold lorazepam
-Continue Lexapro
ASCVD / PAD s/p Bilateral Fem-Pop Bypass
-Stable
Code Status: DNR
[2024-11-17] MEDS: DECADRON 10 MG IV (13:18)
[2024-11-17 13:42] LABS: ALT (SGPT) < 10 U/L (0-35); AST (SGOT) 13 U/L (14-36); Albumin 3.5 g/dl (3.5-5.0); Alkaline Phosphatase 81 U/L (38-126); Blood Urea Nitrogen 14 mg/dl (7-17); Calcium 9.2 mg/dl (8.4-10.2); Chloride 94 mmol/L (98-107); Glucose 183 mg/dl (70-99); Lipase 69 U/L (23-300); Potassium 4.2 mmol/L (3.5-5.1); Sodium 142 mmol/L (135-145); Total Bilirubin 0.5 mg/dl (0.2-1.3); Total Protein 6.2 g/dl (6.3-8.2); eGFR > 60.00
[2024-11-17 13:53] LABS: Carbon Dioxide 47 mmol/L (22-30)
--- NOTE | 2024-11-17 14:21 | CON.PUL ---
Consultation
Consultation Request
Date/Time Consultation Requested: 11/17/2024
Date/Time Consultation Performed: 11/17/2024
Requesting Provider: Jessica Christensen
Performing Provider: Boby Nunn
Reason for Consultation: Shortness of breath
Medical History
-
Chief Complaint: Shortness of breath
History of Present Illness:
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
PAD, history of asthma, anxiety, and chronic gastritis who presents with worsening shortness of breath. Patient reportedly has been more lethargic, fatigued. No reported change in chronic cough. Lately patient has been needing higher amount of
supplemental oxygen due to shortness of breath. Workup in the emergency room showed essentially unchanged chest x-ray and patient was noted to have worsening hypercapnia on blood gas. Pulmonary consultation was requested for further input.
Past Medical History: Reports Other
Additional Past Medical History:
Severe COPD
Chronic Hypoxemic / Hypercarbic Respiratory Failure
Chronic HFpEF
Essential Hypertension
DM-II
ASCVD / PAD
History of DVT / PE
Anxiety / Depression
Chronic Ambulatory Dysfunction
Past Surgical History: Reports Other
Additional Past Surgical History:
Appendectomy
Tubal Ligation
Bilateral Fem-Pop Bypasses
Cholecystectomy
Social History
Tobacco: Former Smoker (Quit > 10 years ago. > 50 pack years total use.)
Alcohol: None
Drug: None
Living: With Family
Family History
Family History: Not pertinent
Allergies / Home Medications
Allergies reflects when Allergies were last updated in [facility].
Home Medications with original date entered in [facility]
Allergies / Home Medications
Allergies
Allergy/AdvReac Type Severity Reaction Status Date / Time
No Known Allergies Allergy Verified 11/17/24 10:47
Home Medications
�Medication �Instructions �Recorded �Confirmed �Last Taken �Type
amlodipine 5 mg tablet 5 mg PO DAILY Blood Pressure 08/01/15 11/17/24 08/12/23 History
metformin 500 mg tablet,extended 500 mg PO BID@0800,1700 Diabetes 03/25/17 11/17/24 08/11/23 History
release 24 hr
guaifenesin 600 mg tablet, 600 mg PO BIDPRN PRN post nasal 11/01/19 11/17/24 10/30/19 History
extended release 12 hr (Mucus drip
Relief ER)
diltiazem HCl 240 mg 240 mg PO DAILY #30 caps 11/05/19 11/17/24 08/12/23 Rx
capsule,extended release 24 hr
apixaban 5 mg tablet (Eliquis) 5 mg PO BID Blood Clot 08/12/23 11/17/24 08/12/23 History
Prevention/Tx
budesonide 0.25 mg/2 mL suspension 0.25 mg inhalation R BID 08/12/23 11/17/24 08/12/23 History
for nebulization Lung/Breathing Issues
escitalopram oxalate 20 mg tablet 20 mg PO DAILY Depression 08/12/23 11/17/24 08/12/23 History
(Lexapro)
formoterol fumarate 20 mcg/2 mL 20 mcg inhalation R BID 08/12/23 11/17/24 08/12/23 History
solution for nebulization Lung/Breathing Issues
(Perforomist)
furosemide 20 mg tablet 20 mg PO Q48H Fluid 08/12/23 11/17/24 Unknown History
Retention/Swelling
ipratropium 0.5 mg-albuterol 3 mg 3 ml inhalation R QID 08/12/23 11/17/24 08/12/23 History
(2.5 mg base)/3 mL nebulization Lung/Breathing Issues
soln
pantoprazole 40 mg tablet,delayed 40 mg PO BID 03/27/24 11/17/24 Unknown History
release
acetaminophen 500 mg tablet 1,000 mg PO Q6HPRN PRN mild 11/17/24 11/17/24 Unknown History
pain/fever
albuterol sulfate 90 mcg/actuation 1 puff inhalation R Q4HPRN PRN 11/17/24 11/17/24 Unknown History
aerosol inhaler sob/wheezing
calcium carbonate 500 mg PO BIDPRN PRN indigestion 11/17/24 11/17/24 Unknown History
doxycycline monohydrate 100 mg 100 mg PO BID 11/17/24 11/17/24 Unknown History
capsule
lorazepam 0.5 mg tablet 0.5 mg PO BIDPRN PRN anxiety 11/17/24 11/17/24 Unknown History
prednisone 5 mg tablet 5 mg PO DAILY 11/17/24 11/17/24 Unknown History
sodium chloride 0.9 % for 1 ml inhalation Q6HPRN PRN sob 11/17/24 11/17/24 Unknown History
nebulization
Review of Systems
-
Hematologic/Lymphatic: Other (All 14 systems reviewed and negative except as stated above in the history of present illness.)
Vitals / Labs / Diagnostic Testing
Vital Signs
Temp Pulse Resp BP Pulse Ox
99.2 F 99 19 143/82 94
11/17/24 10:45 11/17/24 14:15 11/17/24 14:15 11/17/24 10:45 11/17/24 14:15
Lab Data
11/17/24 12:33
11/17/24 12:33
Diagnostic Testing:
Physical Exam
-
HEENT: Normocephalic
Cardiovascular: S1/S2
Respiratory: Wheeze (Bilateral expiratory wheezing, diffuse) and Rhonchi
GI: Soft and Non Distended
Neurology: Awake and Alert
Skin: Warm
General: Comfortable
Assessment
-
#1. Acute on chronic hypoxic and hypercapnic respiratory failure. 7., baseline pCO2 around mid 70's. Bicarb at 47, chronically in mid to high 30's.
-Continue supplemental O2 to keep saturation 89% or above
-Patient has been on BiPAP. Patient was asking to come off and was transitioned to nasal cannula, work of breathing acceptable.
-Patient at baseline uses trilogy nightly for severe, end-stage COPD with chronic hypercapnia
#2. Severe emphysema with acute COPD exacerbation, Home O2 and Steroid dependent with nightly AVAPS. Office spirometry 2022: FEV1/FVC 36 with FEV1 0.5 L, 24% of predicted. Very severe airflow obstruction. At baseline patient is on Perforomist,
Budesonide with PRN Duoneb, Prednisone 5 mg daily and Ohthuvarye. home NIPPV with Trilogy, (Baseline settings: AVAPS�AE, with TV: 300, min EPAP: 5, max EPAP: 14, min PS: 5, max PS: 30; she had an average IPAP of 18.5, average EPAP of 8.7, average
VTe 355 mL, average minute ventilation: 7.3L/min, average breaths per minute
-WBC count normal. Eosinophil count 0-400
-Continue DuoNeb 4 times daily, budesonide twice daily, 3 days of azithromycin 500 mg daily, continue IV steroids
-Additional albuterol on as-needed basis
-I called patient's daughter, Thuy, and updated her regarding current plan of care. Patient follows up with palliative care as outpatient but is currently not under hospice care. I recommended considering hospice evaluation considering patient
has end-stage COPD, with worsening functional capacity. Confirmed DNR/DNI CODE STATUS.
#3. LLL scarring vs Pneumonia. On review of prior imaging as well as CT scans in the past, left lower lobe scarring appears to be chronic. Imaging not suggestive of acute pneumonia. WBC count is normal, patient is afebrile
-Azithromycin 500 mg daily for 3 days for COPD exacerbation
-Hold off additional antibiotics as presentation not suggestive of acute pneumonia
#4. History of pulmonary nodules. Pulmonary nodules have been stable over the years. Patient has end-stage COPD, unlikely to tolerate any additional workup or biopsies.
-Can resume follow-up as outpatient
#5. History of pulmonary embolism and DVT
-Life long Eliquis
Patient follows up with Dr. Gamino in the pulmonary clinic. Office records reviewed.
Patient will resume follow-up after discharge with Dr. Gamino
Total time spent on this consultation/encounter ___85_ minutes which includes review of history, physical exam, medications, laboratory data, personal review of imaging, extensive review of outpatient records, discussion with care team and
respiratory therapy.
Data:
CXR 11/2024: Subtle left basilar opacity, likely scarring/atelectasis with pneumonia not excluded.
CT 11/2023: Severe centrilobular emphysema in the bilateral lung bases. Stable chronic scarring or atelectasis in the left lower lobe. 3 mm pulmonary nodule in the right middle lobe (image 1), stable compared to the chest CT from 2019 and most
compatible with a benign nodule.
Lexiscan 08/2023: No evidence of ischemia
ECHO 08/2023: Normal left ventricular size, wall thickness and systolic function. No regional
wall motion abnormalities are seen. LV ejection fraction is 55-60% by Mansfield's
method of discs. Stage I diastolic dysfunction suggestive of abnormal
relaxation. Valeriano EPIQ left ventricular global longitudinal strain is -13.7
(global strain is more normal/preserved at the apex and lateral wall).
Normal right ventricular size and function.
Mitral valve opens normally. Trace mitral regurgitation.
Trileaflet aortic valve. No aortic regurgitation is seen.
Trace tricuspid regurgitation. Tricuspid valve opens normally. Estimated
pulmonary artery pressure of 15-[address]-PE 2019: 1. Moderate amount of ACUTE BILATERAL PULMONARY ARTERIAL EMBOLIC DISEASE.
2. No CTA evidence for right heart dysfunction.
3. SEVERE BILATERAL CENTRILOBULAR EMPHYSEMA.
4. Stable solid pulmonary nodules measuring up to 6 mm in size (unchanged from 07/02/2017).
5. Severe calcific atherosclerotic disease of the coronary arteries.
[2024-11-17 14:49] LABS: NT-proBNP 223 pg/ml
--- NOTE | 2024-11-17 14:57 | W.PN.UPDATE ---
Update Note
Progress Note Update
I saw and examined the patient.
The MATHEW Naranjo note was reviewed and I agree with the note.
Comment: 78 y/o F, hx of COPD with chronic hypoxic/hypercarbic RF, hx of BiPAP use, CHF, DM, hx of VTE on Eliquis presents to ER for increasing O2 requirements and SOB - acute worsening of chronoic symptoms associated with lethargy, fatigue and
sleepiness. Daughter also notes transient slurred speech. Daughter also reports chronic cough. No other new complaints.
in ER, found to have acute hypercapnic and also concern for Acute COPD exacerbation and admitted for IV steroids and pulmonary eval, BIPAP in IMU.
Physical Exam
General: Comfortable and Conversant
HEENT: Oxygen (Nasal Cannula)
Respiratory: Wheezes (Diffuse Inspirator and Expiratory) and Other (Occasional pursed lip breathing)
Cardiac: S1/S2 and Regular Rhythm
GI: Soft and Tender (Right upper quadrant without rebound or guarding)
Rectal: Deferred by Provider
Musculoskeletal: No Clubbing, No Cyanosis and No Edema
Skin: Warm and Dry
Neuro: Other (Answers questions but quickly will drift off closing her eyes, but easily arousable)
Psych: Calm
Assessment:
Acute on Chronic Hypoxemic/Hypercarbic Respiratory Failure
- Start on BiPAP and Admit to IMU
- Consult Pulmonary
- Recheck VBG later this afternoon
Acute COPD Exacerbation
- continue Decadron
- continue DuoNeb QID and PRN
- continue Pulmicort Neb
- continue Mucinex 600mg BID
- Zithromax course for anti-inflammatory effects
Chronic Right Upper Quadrant Pain
- continue Protonix BID
- further work-up as outpatient
Chronic HFpEF
- continue Lasix
- monitor Is&Os and Daily Weights
Essential Hypertension
- continue amlodipine adn diltiazem
Diabetes Mellitus, Type II
- continue metformin
- monitor sugars and continue coverage insulin
History of DVT / PE
- continue Eliquis
Anxiety / Depression
- hold lorazepam
- continue Lexapro
ASCVD / PAD s/p Bilateral Fem-Pop Bypass
- stable
DVT ppx: Eliquis
Code Status: DNR/DNI
[2024-11-17] MEDS: ZITHROMAX 500 MG PO (15:23)
--- NOTE | 2024-11-17 16:45 | PTCARENOTE ---
Received patient from ED on stretcher. Patient on 4L o2 via n/c with pulse ox 97%. Lungs diminished throughout. AAOx3, patient anxious to have dinner, she has not eaten all day. Patient to go back on BIPAP after dinner. NSR on monitor with HR
90's. VS stable. Family in room at bedside. Oriented patient to room.
[2024-11-17 16:54] LABS: Glucose - Point of Care 217 mg/dl (70-99)
[2024-11-17] MEDS: GLUCOPHAGE XR EXTENDED RELEASE 500 MG PO (17:46)
[2024-11-17] MEDS: NOVOLOG FLEXPEN-LOW RESISTANCE 2 UNITS SC (18:35)
[2024-11-17] MEDS: PULMICORT 0.5 MG INH (20:05)
[2024-11-17] MEDS: MUCINEX 600 MG PO (20:06)
[2024-11-17] MEDS: PROTONIX 40 MG PO (20:06)
[2024-11-17] MEDS: ELIQUIS 5 MG PO (20:06)
[2024-11-17] MEDS: DECADRON 6 MG IV (20:07)
[2024-11-17 21:43] LABS: Glucose - Point of Care 282 mg/dl (70-99)
--- NOTE | 2024-11-17 22:38 | PTCARENOTE ---
Patient aao x3 since start of shift. Affect pleasant. Denies pain. Patient started on BiPap 07/13 and 4L by RT. Increased to 6L d/to pox 88% sustained. Pox low to mid 90's on 07/13 with 6L o2. Purewick remain inplace and draining clear, yellow urine.
Discussed VBGs with PAULETTE Walls. Will obtain labs shortly as patient started on BiPap around 2200. Patient currently resting in bed, call lugo within reach. Will continue to monitor patient closely.
[2024-11-17 23:56] LABS: Venous Blood Gas B.E. 15.9 mmol/L (-4 to +4); Venous Blood Gas HCO3 44.6 mmol/L (22-27); Venous Blood Gas pH 7.36 (7.32-7.43); Venous Blood Gas pO2 104 mmHg (30-50)
[2024-11-17 23:58] LABS: Venous Blood Gas pCO2 79 mmHg (35-48)
[2024-11-18] VITALS (13 sets, daily range): BP systolic 124–150; BP diastolic 60–90; PULSE 2–75; BMI 20.4
--- NOTE | 2024-11-18 03:30 | PTCARENOTE ---
Patient requested BiPap be removed around 0130. BiPap removed and o2 at 2L nc applied. Patient pox ranging from 95-99% on 2L o2 nc. Patient resting in bed with observed comfort. Call lugo within reach. Will continue to monitor patient closely.
[2024-11-18] MEDS: DECADRON 6 MG IV ×2 (03:33→12:44)
[2024-11-18 04:04] LABS: Venous Blood Gas B.E. 15.5 mmol/L (-4 to +4); Venous Blood Gas HCO3 46.2 mmol/L (22-27); Venous Blood Gas O2 Sat % 86.5 %; Venous Blood Gas pH 7.29 (7.32-7.43); Venous Blood Gas pO2 55 mmHg (30-50)
[2024-11-18 04:06] LABS: Hematocrit 36.5 % (37.0-47.0); Hemoglobin 11.5 g/dL (12.0-16.0); Mean Corp Hgb Conc. 31.5 g/dL (33.0-37.0); Mean Corpuscular Hgb 29.6 pg (27.0-31.0); Mean Corpuscular Volume 93.8 fL (81.0-99.0); Mean Platelet Volume 9.6 fL (7.4-10.4); Platelet Count 197 10^3/uL (130-400); Red Blood Cell Count 3.89 10^6/uL (4.20-5.40); Red Cell Dist. Width 11.7 % (11.5-14.5); Venous Blood Gas pCO2 96 mmHg (35-48); White Blood Cell Count 4.2 10^3/uL (4.8-10.8)
[2024-11-18 04:24] LABS: Blood Urea Nitrogen 18 mg/dl (7-17); Calcium 9.4 mg/dl (8.4-10.2); Chloride 94 mmol/L (98-107); Estimated Creatinine Clearance 53 ml/min; Glucose 210 mg/dl (70-99); Potassium 4.9 mmol/L (3.5-5.1); Sodium 142 mmol/L (135-145); eGFR > 60.00
[2024-11-18 04:35] LABS: Carbon Dioxide 43 mmol/L (22-30)
[2024-11-18] MEDS: DUONEB 3 ML INH ×4 (07:29→19:43)
[2024-11-18] MEDS: PULMICORT 0.5 MG INH ×2 (07:31→19:44)
[2024-11-18 07:57] LABS: Glucose - Point of Care 192 mg/dl (70-99)
[2024-11-18] MEDS: LASIX 20 MG PO (08:14)
[2024-11-18] MEDS: NOVOLOG FLEXPEN-LOW RESISTANCE 1 UNITS SC (08:14)
[2024-11-18] MEDS: LEXAPRO 20 MG PO (08:15)
[2024-11-18] MEDS: PROTONIX 40 MG PO ×2 (08:15→20:03)
[2024-11-18] MEDS: ELIQUIS 5 MG PO ×2 (08:15→20:03)
[2024-11-18] MEDS: ZITHROMAX 250 MG PO (08:15)
[2024-11-18] MEDS: GLUCOPHAGE XR EXTENDED RELEASE 500 MG PO ×2 (08:15→17:30)
[2024-11-18] MEDS: MUCINEX 600 MG PO ×2 (08:15→20:03)
[2024-11-18] MEDS: NORVASC 5 MG PO (08:15)
[2024-11-18] MEDS: CARDIZEM CD 240 MG PO (08:15)
--- NOTE | 2024-11-18 09:37 | CM ---
Spoke with daughter Thuy [phone]
currently on palliative care
Dx: copd exacerbation
CM consult completed for hospice
prefer hospice - referral placed in [facility]
tt [facility]
IA completed-Obtained by daughter
Lives with daughter Thuy in 2 story home, 1st floor set up
PLOF: walker, wheelchair
DME, home 02 ([employer] sale to [facility]) 2L cont, wheelchair, walker, shower chair
Has had [facility] in past as well as [facility], denies SNF
PCP: Hay Browne
PHARMACY: [address], [place]
PLAN: Hospice eval
--- NOTE | 2024-11-18 09:58 | HOSPNOTE ---
Addendum entered by Francy Arora RN 11/18/24 11:04:
Attending also updated on my conversation with Thuy.
Addendum entered by Francy Arora RN 11/18/24 10:30:
Spoke to Thuy at length. Reviewed hospice and the philosophy. She is worried that her mom might not be ready to not be able to come back to the hospital for treatment. Patient is known to Palliative Care. Thuy would like Palliative Care to
give their opinion on hospice and then initiate the conversation with patient if they feel hospice is appropriate. I will notify Palliative Care and ask them to speak to Thuy and patient on Wednesday. We will follow and be available if hospice is
decided. CM updated.
Original Note:
Referral received. Called and left voicemail for daughter Thuy. Will await her return call. More information to follow. CM updated.
--- NOTE | 2024-11-18 12:37 | W.PN.PUL3 ---
Today's Communication / Plan
-
Better today, not quite back to baseline
Continued on IV steroids but will decrease dose today, can likely transition to PO taper tomorrow if improving
Continued on home regiment for stage IV COPD
Resumed on home Trilogy, last CO2 70 at baseline, now 90--encouraged continued use nightly and PRN
Reviewed with daughter at bedside
Assessment
-
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
PAD, history of asthma, anxiety, and chronic gastritis who presents with worsening shortness of breath. Patient reportedly has been more lethargic, fatigued. No reported change in chronic cough. Lately patient has been needing higher amount of
supplemental oxygen due to shortness of breath. Workup in the emergency room showed essentially unchanged chest x-ray and patient was noted to have worsening hypercapnia on blood gas. Pulmonary consultation was requested for further input.
Acute on chronic respiratory failure with hypoxia/hypercapnia
COPD exacerbation
Suspected PNA
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
#Chronic metabolic alkalosis due to compensation from chronic respiratory acidosis
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
#Former tobacco use disorder with >39-racn-daem history
#DM type II with hyperglycemia (last HbA1c: 6 on 03/27/2024)
#Anemia with history of LUZ
#History of PE/DVT on Eliquis
Plan
Acute on chronic hypoxic and hypercapnic respiratory failure.
7.33/93, baseline pCO2 around mid 70's. Bicarb at 47, chronically in mid to high 30's.
Continue supplemental O2 to keep saturation 89% or above
Patient has been on BiPAP. Patient was asking to come off and was transitioned to nasal cannula, work of breathing acceptable.
Continue Home NIPPV with Trilogy, (Baseline settings: AVAPS�AE, with TV: 300, min EPAP: 5, max EPAP: 14, min PS: 5, max PS: 30; she had an average IPAP of 18.5, average EPAP of 8.7, average VTe 355 mL, average minute ventilation: 7.3L/min, average
breaths per minute
Severe emphysema with acute COPD exacerbation, Home O2 and Steroid dependent with nightly AVAPS.
Office spirometry 2022: FEV1/FVC 36 with FEV1 0.5 L, 24% of predicted. Very severe airflow obstruction.
At baseline patient is on Perforomist, Budesonide with PRN Duoneb, Prednisone 5 mg daily and Ohthuvarye--max therapy
WBC count normal. Eosinophil count 0-400
Continue DuoNeb 4 times daily, budesonide twice daily, 3 days of azithromycin 500 mg daily, continue IV steroids
Additional albuterol on as-needed basis
On IV steroids, will wean dose today--can transition to PO course if improving
LLL scarring vs Pneumonia. On review of prior imaging as well as CT scans in the past, left lower lobe scarring appears to be chronic.
Imaging not suggestive of acute pneumonia. WBC count is normal, patient is afebrile
Azithromycin 500 mg daily for 3 days for COPD exacerbation
Hold off additional antibiotics as presentation not suggestive of acute pneumonia
History of pulmonary nodules. Pulmonary nodules have been stable over the years.
Patient has end-stage COPD, unlikely to tolerate any additional workup or biopsies.
Can resume follow-up as outpatient
History of pulmonary embolism and DVT-Life long Eliquis, continued
Patient follows up with Dr. Gamino in the pulmonary clinic. Office records reviewed.
Patient will resume follow-up after discharge with Dr. Gamino
Family Discussions
Arline- I called patient's daughter, Thuy, and updated her regarding current plan of care. Patient follows up with palliative care as outpatient but is currently not under hospice care. I recommended considering hospice evaluation considering
patient has end-stage COPD, with worsening functional capacity. Confirmed DNR/DNI CODE STATUS.
Data:
CXR 11/2024: Subtle left basilar opacity, likely scarring/atelectasis with pneumonia not excluded.
CT 11/2023: Severe centrilobular emphysema in the bilateral lung bases. Stable chronic scarring or atelectasis in the left lower lobe. 3 mm pulmonary nodule in the right middle lobe (image 1), stable compared to the chest CT from 2019 and most
compatible with a benign nodule.
Lexiscan 08/2023: No evidence of ischemia
ECHO 08/2023: Normal left ventricular size, wall thickness and systolic function. No regional wall motion abnormalities are seen. LV ejection fraction is 55-60% by Mansfield's method of discs. Stage I diastolic dysfunction suggestive of abnormal
relaxation. Valeriano EPIQ left ventricular global longitudinal strain is -13.7 (global strain is more normal/preserved at the apex and lateral wall). Normal right ventricular size and function. Mitral valve opens normally. Trace mitral
regurgitation. Trileaflet aortic valve. No aortic regurgitation is seen. Trace tricuspid regurgitation. Tricuspid valve opens normally. Estimated pulmonary artery pressure of 15-[address]-PE 2019: 1. Moderate amount of ACUTE BILATERAL PULMONARY ARTERIAL EMBOLIC DISEASE.
2. No CTA evidence for right heart dysfunction.
3. SEVERE BILATERAL CENTRILOBULAR EMPHYSEMA.
4. Stable solid pulmonary nodules measuring up to 6 mm in size (unchanged from 07/02/2017).
5. Severe calcific atherosclerotic disease of the coronary arteries.
Total time spent on this consultation/encounter __51_ minutes which includes review of history, physical exam, medications, laboratory data, personal review of imaging, extensive review of outpatient records, discussion with care team and
respiratory therapy.
Subjective Data
-
Date of Service:
Date of Service: November 18, 2024
Chief Complaint: Pulmonary Follow Up
Subjective:
Better today, but she reports not back to baseline
Using PAP at night
Family at bedside
Objective Data
Data Reviewed
Vital Signs / I&O / Oxygen:
Vital Signs
Temp Pulse Resp BP Pulse Ox
96.8 F L 86 18 134/90 95
11/18/24 07:19 11/18/24 11:40 11/18/24 11:40 11/18/24 08:14 11/18/24 11:40
Intake and Output
11/17/24 11/18/24 11/19/24
06:59 06:59 06:59
Intake Total 480 / 480
Output Total 500 / 500
Balance -20 / -20
SaO2 95
Nasal Cannula flow liters per 3
minute
Physical Exam
General: Comfortable and Other (NAD)
HEENT: Normocephalic, Anicteric and Moist Mucous Membranes
Cardiovascular: S1-S2 and Regular Rhythm
Respiratory: Clear (poor air movement) and Non-Labored Respirations
GI: Soft, Non Distended and Non Tender
Neurology: Awake, Alert, Oriented and No Motor Deficits
Skin: Warm, Dry and Good Color
Labs/Micro/Reports
Lab Data
11/18/24 03:43
11/18/24 03:43
[2024-11-18] MEDS: NOVOLOG FLEXPEN-LOW RESISTANCE 2 UNITS SC ×2 (12:41→17:29)
[2024-11-18 12:51] LABS: Glucose - Point of Care 233 mg/dl (70-99)
[2024-11-18 13:54] LABS: Glycohemoglobin (HgbA1c) 6.5 % (4.0-5.6)
--- NOTE | 2024-11-18 15:09 | W.PN.HOSP.TC ---
Today's Communication/Plan
-
IV steroids
Azithromycin
pall care consult Wednesday to transition to possible hospice
Assessment / Plan
Assessment / Plan
Assessment:
Acute on Chronic Hypoxemic/Hypercarbic Respiratory Failure
- continue BiPAP HS and prn
Acute COPD Exacerbation
- continue IV Decadron
- continue DuoNeb QID and PRN
- continue Pulmicort Neb
- continue Mucinex 600mg BID
- Zithromax course for anti-inflammatory effects, 5 day course
Chronic Right Upper Quadrant Pain
- continue Protonix BID
- further work-up as outpatient
Chronic HFpEF
- continue Lasix
- monitor Is&Os and Daily Weights
Essential Hypertension
- continue amlodipine and diltiazem
Diabetes Mellitus, Type II
- continue metformin
- monitor sugars and continue coverage insulin
History of DVT / PE
- continue Eliquis
Anxiety / Depression
- hold lorazepam
- continue Lexapro
ASCVD / PAD s/p Bilateral Fem-Pop Bypass
- stable
DVT ppx: Eliquis
Code Status: DNR/DNI
Anticipated Discharge: > 48 hours
Subjective/Interval History
-
Date of Service: November 18, 2024
no complaints
feels breathing slightly improved
Objective Data
-
Labs:
Laboratory Results
11/18/24
03:43
WBC 4.2 L
Hgb 11.5 L
Hct 36.5 L
Plt Count 197
Sodium 142
Potassium 4.9
Chloride 94 L
Carbon Dioxide 43 H
BUN 18 H
Creatinine 0.8
Glucose 210 H
Calcium 9.4
Vital Signs:
Vital Signs
Temp Pulse Resp BP Pulse Ox
96.8 F L 95 27 142/64 96
11/18/24 07:19 11/18/24 13:00 11/18/24 13:00 11/18/24 12:00 11/18/24 13:00
I&O
11/17/24 11/18/24 11/19/24
06:59 06:59 06:59
Intake Total 480 / 480
Output Total 500 / 500
Balance -20 / -20
Physical Exam
-
General: No Apparent Distress
HEENT: Normocephalic and Atraumatic
Respiratory: Negative Wheezes
Cardiac: Regular Rhythm and S1/S2
GI: Soft and Nontender
Musculoskeletal: No Edema
Neuro: AO x 3
Psych: Calm
Data Reviewed
-
Total Time Spent with Patient (in minutes): 41
Labs: Labs Reviewed by me
[2024-11-18] MEDS: TUMS CHEWABLE TABLET 400 MG PO (15:25)
[2024-11-18 17:22] LABS: Glucose - Point of Care 236 mg/dl (70-99)
[2024-11-18] MEDS: DECADRON 4 MG IV (20:03)
[2024-11-18 21:29] LABS: Glucose - Point of Care 211 mg/dl (70-99)
--- NOTE | 2024-11-18 22:33 | PTCARENOTE ---
Patient aao x3 at start of shift. Affect pleasant. NSR on the monitor. Patient on 2L o2 n/c at start of shift. RT placed patient on BiPap around 2200, bipap set at 18/8. Dtr and granddaughter at bedside. Patient denies pain. Purewick remains in
place and functioning properly. Right ac int patent. Dtr and patient asking about how to get Purewick at home. RN to request CM discuss DME with patient and family tomorrow and also encouraged dtr to reach out to palliative care SW to review
obtaining dme. Understanding verbalized. Will continue to monitor patient closely.
[2024-11-19] VITALS (13 sets, daily range): BP systolic 131–155; BP diastolic 65–85; PULSE 2–109; BMI 20.5
[2024-11-19] MEDS: TYLENOL 650 MG PO (00:21)
[2024-11-19] MEDS: DECADRON 4 MG IV (03:11)
--- NOTE | 2024-11-19 03:41 | PTCARENOTE ---
Patient c/o sore throat with BiPap. RN notified PAULETTE Walls, Chloraseptic ordered. Awaiting spray from pharmacy, will continue to encourage use of BiPap. Hygiene provided at this time, Purewick replaced, ointment applied to patients
buttocks/sacrum. Patient states she has not slept well overnight thus far. Patient verbalized increased comfort at this time. Will continue to monitor patient closely.
[2024-11-19 03:54] LABS: Hematocrit 36.6 % (37.0-47.0); Hemoglobin 11.6 g/dL (12.0-16.0); Mean Corp Hgb Conc. 31.7 g/dL (33.0-37.0); Mean Corpuscular Hgb 29.1 pg (27.0-31.0); Mean Platelet Volume 9.8 fL (7.4-10.4); Platelet Count 230 10^3/uL (130-400); Red Blood Cell Count 3.98 10^6/uL (4.20-5.40); Red Cell Dist. Width 11.7 % (11.5-14.5); White Blood Cell Count 11.2 10^3/uL (4.8-10.8)
[2024-11-19 03:55] LABS: Venous Blood Gas HCO3 49.7 mmol/L (22-27); Venous Blood Gas O2 Sat % 78.9 %; Venous Blood Gas pH 7.37 (7.32-7.43); Venous Blood Gas pO2 48 mmHg (30-50)
[2024-11-19 04:04] LABS: Venous Blood Gas pCO2 86 mmHg (35-48)
[2024-11-19 04:10] LABS: Blood Urea Nitrogen 30 mg/dl (7-17); Calcium 9.3 mg/dl (8.4-10.2); Chloride 90 mmol/L (98-107); Estimated Creatinine Clearance 46 ml/min; Glucose 245 mg/dl (70-99); Potassium 4.3 mmol/L (3.5-5.1); Sodium 139 mmol/L (135-145); eGFR > 60.00
[2024-11-19] MEDS: CHLORASEPTIC/SORE THROAT SPRAY 1 SPRAY PO ×2 (04:16→09:19)
[2024-11-19 04:30] LABS: Carbon Dioxide 39 mmol/L (22-30)
--- NOTE | 2024-11-19 05:28 | PTCARENOTE ---
Patient requested breaks from BiPap from 00:25-00:55, 01:40-02:00, and 03:10-04:20, due to sore throat. Chloraseptic spray administered around 0400, patient verbalizes positive results at this time. Will continue to monitor patient closely.
[2024-11-19] MEDS: DUONEB 3 ML INH ×5 (07:32→21:48)
[2024-11-19] MEDS: PULMICORT 0.5 MG INH ×2 (07:33→18:25)
[2024-11-19 08:05] LABS: Glucose - Point of Care 261 mg/dl (70-99)
--- NOTE | 2024-11-19 09:10 | W.PN.HOSP.TC ---
Today's Communication/Plan
-
IV steroids
continue BiPAP
Pall care consult Wednesday to discuss hospice w family
Assessment / Plan
Assessment / Plan
Assessment:
Acute on Chronic Hypoxemic/Hypercarbic Respiratory Failure
- continue BiPAP HS and prn
Acute COPD Exacerbation
- continue IV Decadron
- continue DuoNeb QID and PRN
- continue Pulmicort Neb
- continue Mucinex 600mg BID
- Zithromax course for anti-inflammatory effects, 5 day course
Chronic Right Upper Quadrant Pain
- continue Protonix BID
- further work-up as outpatient
Chronic HFpEF
- continue Lasix
- monitor Is&Os and Daily Weights
Essential Hypertension
- continue amlodipine and diltiazem
Diabetes Mellitus, Type II
- continue metformin
- monitor sugars and continue coverage insulin
History of DVT / PE
- continue Eliquis
Anxiety / Depression
- hold lorazepam
- continue Lexapro
ASCVD / PAD s/p Bilateral Fem-Pop Bypass
- stable
DVT ppx: Eliquis
Code Status: DNR/DNI. Palliative care consult Wednesday as pulmonary recommended hospice which family is seriously considering.
Anticipated Discharge: 24 - 48 hours
Subjective/Interval History
-
Date of Service: November 19, 2024
resting comfortably, no complaints
Objective Data
-
Labs:
Laboratory Results
11/19/24
03:19
WBC 11.2 H
Hgb 11.6 L
Hct 36.6 L
Plt Count 230
Sodium 139
Potassium 4.3
Chloride 90 L
Carbon Dioxide 39 H
BUN 30 H
Creatinine 0.9
Glucose 245 H
Calcium 9.3
Vital Signs:
Vital Signs
Temp Pulse Resp BP Pulse Ox
97.9 F 108 23 152/75 92
11/19/24 08:00 11/19/24 08:45 11/19/24 08:45 11/19/24 08:00 11/19/24 08:45
I&O
11/18/24 11/19/24 11/20/24
06:59 06:59 06:59
Intake Total 480 / 480
Output Total 500 / 500
Balance -20 / -20
Physical Exam
-
General: No Apparent Distress
HEENT: Normocephalic and Atraumatic
Respiratory: Wheezes
Cardiac: Regular Rhythm and S1/S2
GI: Soft and Nontender
Musculoskeletal: No Edema
Psych: Calm
Data Reviewed
-
Total Time Spent with Patient (in minutes): 42
Labs: Labs Reviewed by me
[2024-11-19] MEDS: NOVOLOG FLEXPEN-LOW RESISTANCE 2 UNITS SC ×2 (09:17→18:34)
[2024-11-19] MEDS: GLUCOPHAGE XR EXTENDED RELEASE 500 MG PO ×2 (09:18→17:31)
[2024-11-19] MEDS: LEXAPRO 20 MG PO (09:18)
[2024-11-19] MEDS: ELIQUIS 5 MG PO ×2 (09:19→19:38)
[2024-11-19] MEDS: PROTONIX 40 MG PO ×2 (09:19→19:38)
[2024-11-19] MEDS: CARDIZEM CD 240 MG PO (09:19)
[2024-11-19] MEDS: MUCINEX 600 MG PO ×2 (09:19→19:38)
[2024-11-19] MEDS: ZITHROMAX 250 MG PO (09:19)
[2024-11-19] MEDS: TUMS CHEWABLE TABLET 400 MG PO ×3 (09:23→17:32)
--- NOTE | 2024-11-19 10:05 | W.PN.PUL3 ---
Today's Communication / Plan
-
Doing well, no new complaints
Will transition to PO taper today
Encouraged OOB, PT/to chair
Continue on Trilogy at night and PRN
Can assess for d/c planning in next 24 hours if stable
Assessment
-
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
PAD, history of asthma, anxiety, and chronic gastritis who presents with worsening shortness of breath. Patient reportedly has been more lethargic, fatigued. No reported change in chronic cough. Lately patient has been needing higher amount of
supplemental oxygen due to shortness of breath. Workup in the emergency room showed essentially unchanged chest x-ray and patient was noted to have worsening hypercapnia on blood gas. Pulmonary consultation was requested for further input.
Acute on chronic respiratory failure with hypoxia/hypercapnia
COPD exacerbation
Suspected PNA
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
#Chronic metabolic alkalosis due to compensation from chronic respiratory acidosis
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
#Former tobacco use disorder with >43-ouoi-fthd history
#DM type II with hyperglycemia (last HbA1c: 6 on 03/27/2024)
#Anemia with history of LUZ
#History of PE/DVT on Eliquis
Plan
Acute on chronic hypoxic and hypercapnic respiratory failure.
7.33/93, baseline pCO2 around mid 70's. Bicarb at 47, chronically in mid to high 30's.
Continue supplemental O2 to keep saturation 89% or above
Patient has been on BiPAP. Patient was asking to come off and was transitioned to nasal cannula, work of breathing acceptable.
Continue Home NIPPV with Trilogy, (Baseline settings: AVAPS�AE, with TV: 300, min EPAP: 5, max EPAP: 14, min PS: 5, max PS: 30; she had an average IPAP of 18.5, average EPAP of 8.7, average VTe 355 mL, average minute ventilation: 7.3L/min, average
breaths per minute
Severe emphysema with acute COPD exacerbation, Home O2 and Steroid dependent with nightly AVAPS.
Office spirometry 2022: FEV1/FVC 36 with FEV1 0.5 L, 24% of predicted. Very severe airflow obstruction.
At baseline patient is on Perforomist, Budesonide with PRN Duoneb, Prednisone 5 mg daily and Ohthuvarye--max therapy
WBC count normal. Eosinophil count 0-400
Continue DuoNeb 4 times daily, budesonide twice daily, 3 days of azithromycin 500 mg daily
Additional albuterol on as-needed basis
On IV steroids, will wean dose today--can transition to PO course today
LLL scarring vs Pneumonia. On review of prior imaging as well as CT scans in the past, left lower lobe scarring appears to be chronic.
Imaging not suggestive of acute pneumonia. WBC count is normal, patient is afebrile
Azithromycin 500 mg daily for 3 days for COPD exacerbation
Hold off additional antibiotics as presentation not suggestive of acute pneumonia
History of pulmonary nodules. Pulmonary nodules have been stable over the years.
Patient has end-stage COPD, unlikely to tolerate any additional workup or biopsies.
Can resume follow-up as outpatient
History of pulmonary embolism and DVT-Life long Eliquis, continued
Patient follows up with Dr. Gamino in the pulmonary clinic. Office records reviewed.
Patient will resume follow-up after discharge with Dr. Gamino
Family Discussions
Arline- I called patient's daughter, Thuy, and updated her regarding current plan of care. Patient follows up with palliative care as outpatient but is currently not under hospice care. I recommended considering hospice evaluation considering
patient has end-stage COPD, with worsening functional capacity. Confirmed DNR/DNI CODE STATUS.
Data:
CXR 11/2024: Subtle left basilar opacity, likely scarring/atelectasis with pneumonia not excluded.
CT 11/2023: Severe centrilobular emphysema in the bilateral lung bases. Stable chronic scarring or atelectasis in the left lower lobe. 3 mm pulmonary nodule in the right middle lobe (image 1), stable compared to the chest CT from 2019 and most
compatible with a benign nodule.
Lexiscan 08/2023: No evidence of ischemia
ECHO 08/2023: Normal left ventricular size, wall thickness and systolic function. No regional wall motion abnormalities are seen. LV ejection fraction is 55-60% by Mansfield's method of discs. Stage I diastolic dysfunction suggestive of abnormal
relaxation. Valeriano EPIQ left ventricular global longitudinal strain is -13.7 (global strain is more normal/preserved at the apex and lateral wall). Normal right ventricular size and function. Mitral valve opens normally. Trace mitral
regurgitation. Trileaflet aortic valve. No aortic regurgitation is seen. Trace tricuspid regurgitation. Tricuspid valve opens normally. Estimated pulmonary artery pressure of 15-[address]-PE 2019: 1. Moderate amount of ACUTE BILATERAL PULMONARY ARTERIAL EMBOLIC DISEASE.
2. No CTA evidence for right heart dysfunction.
3. SEVERE BILATERAL CENTRILOBULAR EMPHYSEMA.
4. Stable solid pulmonary nodules measuring up to 6 mm in size (unchanged from 07/02/2017).
5. Severe calcific atherosclerotic disease of the coronary arteries.
Total time spent on this consultation/encounter __51_ minutes which includes review of history, physical exam, medications, laboratory data, personal review of imaging, extensive review of outpatient records, discussion with care team and
respiratory therapy.
Subjective Data
-
Date of Service:
Date of Service: November 19, 2024
Chief Complaint: Pulmonary Follow Up
Subjective:
Doing well, no new complaints
Trial OOB today
Objective Data
Data Reviewed
Vital Signs / I&O / Oxygen:
Vital Signs
Temp Pulse Resp BP Pulse Ox
97.9 F 108 23 152/75 92
11/19/24 08:00 11/19/24 08:45 11/19/24 08:45 11/19/24 08:00 11/19/24 08:45
Intake and Output
11/18/24 11/19/24 11/20/24
06:59 06:59 06:59
Intake Total 480 / 480
Output Total 500 / 500
Balance -20 / -20
SaO2 92
Nasal Cannula flow liters per 3
minute
Physical Exam
General: Comfortable and Other (NAD)
HEENT: Normocephalic, Anicteric and Moist Mucous Membranes
Cardiovascular: S1-S2 and Regular Rhythm
Respiratory: Clear (poor air movement) and Non-Labored Respirations
GI: Soft, Non Distended and Non Tender
Neurology: Awake, Alert, Oriented and No Motor Deficits
Skin: Warm, Dry and Good Color
Labs/Micro/Reports
Lab Data
11/19/24 03:19
11/19/24 03:19
[2024-11-19] MEDS: NORVASC 5 MG PO (11:54)
[2024-11-19] MEDS: NOVOLOG FLEXPEN-LOW RESISTANCE 1 UNITS SC (11:56)
[2024-11-19 12:05] LABS: Glucose - Point of Care 198 mg/dl (70-99)
[2024-11-19] MEDS: DELTASONE 50 MG PO (17:31)
[2024-11-19 17:55] LABS: Glucose - Point of Care 204 mg/dl (70-99)
--- NOTE | 2024-11-19 18:30 | PTCARENOTE ---
Patient complaining of SOB and became very anxious while trying to have BM on bedpan. Respiratory therapist called for breathing tx. Patient pulse ox remained 91-93% on 3L. Patient lungs diminished throughout, pursed lip breathing. Patient calmed
down after breathing tx and said she felt a little better. Plan for patient to go on BIPAP after dinner. VS stable, SR on monitor. Call lugo in reach. Will monitor.
--- NOTE | 2024-11-19 20:00 | PTCARENOTE ---
pt is aaox3, anxious and a little forgetful. pt has no c/o pain at this time. pt is on 2-3L of oxygen. OTTO. pt has call lugo in reach.
[2024-11-19 22:04] LABS: Glucose - Point of Care 195 mg/dl (70-99)
[2024-11-20] VITALS (18 sets, daily range): BP systolic 132–177; BP diastolic 72–125; PULSE 2–106; BMI 20.7
[2024-11-20] MEDS: NON-FORMULARY ITEM 2 MG PO ×3 (01:32→18:14)
[2024-11-20 05:06] LABS: Hematocrit 40.2 % (37.0-47.0); Hemoglobin 12.4 g/dL (12.0-16.0); Mean Corp Hgb Conc. 30.8 g/dL (33.0-37.0); Mean Corpuscular Hgb 28.8 pg (27.0-31.0); Mean Corpuscular Volume 93.5 fL (81.0-99.0); Mean Platelet Volume 9.5 fL (7.4-10.4); Platelet Count 260 10^3/uL (130-400); Red Cell Dist. Width 12.1 % (11.5-14.5); White Blood Cell Count 10.5 10^3/uL (4.8-10.8)
[2024-11-20 05:31] LABS: Blood Urea Nitrogen 29 mg/dl (7-17); Estimated Creatinine Clearance 47 ml/min; Glucose 236 mg/dl (70-99); eGFR > 60.00
[2024-11-20 05:32] LABS: Calcium 9.8 mg/dl (8.4-10.2); Chloride 91 mmol/L (98-107); Potassium 4.4 mmol/L (3.5-5.1); Sodium 142 mmol/L (135-145)
[2024-11-20 05:54] LABS: Carbon Dioxide 40 mmol/L (22-30)
--- NOTE | 2024-11-20 06:26 | PTCARENOTE ---
informed PHILOSOPHY AND REL[employer]ION INSTRUCTOR Kemi of blood pressures. continue to monitor at this time. pt removed bipap at 0410
[2024-11-20 07:57] LABS: Glucose - Point of Care 144 mg/dl (70-99)
[2024-11-20] MEDS: PULMICORT 0.5 MG INH ×2 (07:59→19:26)
[2024-11-20] MEDS: DUONEB 3 ML INH ×3 (07:59→19:26)
--- NOTE | 2024-11-20 08:00 | PTCARENOTE ---
Pt [id number] anxious on 3 L O2. Eating breakfast too fast encouraged pt to slow down. Son at bedside answers when pt asked a question. Pt took meds with out incident
[2024-11-20] MEDS: LASIX 20 MG PO (08:18)
[2024-11-20] MEDS: NOVOLOG FLEXPEN-LOW RESISTANCE SC (08:18)
[2024-11-20] MEDS: PROTONIX 40 MG PO ×2 (08:19→20:10)
[2024-11-20] MEDS: ELIQUIS 5 MG PO ×2 (08:19→20:11)
[2024-11-20] MEDS: ZITHROMAX 250 MG PO (08:19)
[2024-11-20] MEDS: LEXAPRO 20 MG PO (08:19)
[2024-11-20] MEDS: GLUCOPHAGE XR EXTENDED RELEASE 500 MG PO ×2 (08:19→16:35)
[2024-11-20] MEDS: MUCINEX 600 MG PO ×2 (08:19→20:11)
[2024-11-20] MEDS: NORVASC 5 MG PO (08:19)
[2024-11-20] MEDS: CARDIZEM CD 240 MG PO (08:19)
[2024-11-20] MEDS: DELTASONE 50 MG PO (08:29)
--- NOTE | 2024-11-20 09:56 | W.PN.HOSP.TC ---
Today's Communication/Plan
-
f/w pulmonary recommendations
ok to resume PRN Ativan
Assessment / Plan
Assessment / Plan
Physical Exam
General: Cachexia, in mild respiratory distress ( seems baseline per patient)
HEENT: Anicteric and Oxygen (Nasal Cannula)
Respiratory: very limited, using few neck accessory muscles)
Cardiac: S1/S2, Tachycardia (Slightly) and Murmur (II/ Systolic Murmur)
GI: Soft and Non Tender
Rectal: No rectal bleeding.
Musculoskeletal: No Clubbing, No Cyanosis and No Edema
Skin: Warm and Dry
Neuro: Awake, Alert, Oriented and Nonfocal/grossly intact
Psych: cooperative, no agitation.
Assessment:
Acute on Chronic Hypoxemic/Hypercarbic Respiratory Failure
- continue BiPAP HS and prn
Acute COPD Exacerbation
- s/p IV steroid, now changed to oral 50 mg prednisone 11/20.
- continue DuoNeb QID and PRN
- continue Pulmicort Neb
- continue Mucinex 600mg BID
- Zithromax course for anti-inflammatory effects,
d/w Dr Gamino, recommend palliative care/ hospice. Pt & family are made aware
Appreciate pulmonary help
Chronic Right Upper Quadrant Pain
- continue Protonix BID
Chronic HFpEF
- continue Lasix
Weight is stable.
Essential Hypertension
- continue amlodipine and diltiazem
Diabetes Mellitus, Type II
We will not enforce very tight blood glucose control since we are considering comfort care
- continue metformin
- monitored sugars and continue coverage insulin
History of DVT / PE
- continue Eliquis
# Leukocytosis
resolved
No fevers
# Moderate protein calorie malnutrition due to chronic illness
Pulmonary disease is with progression/ poor prognosis.
She continues to have weight did not change since evaluated last year, + muscle wasting.
Anxiety / Depression
- Resume PRN oral lorazepam
- continue Lexapro
ASCVD / PAD s/p Bilateral Fem-Pop Bypass
- stable
DVT ppx: Eliquis
Code Status: DNR/DNI. Palliative care consulted as pulmonary recommended hospice which family is seriously considering.
Total time spent to see the patient, examine the patient, review data and lab results, discuss treatment plan with patient and nursing staff around 55 minutes
Anticipated Discharge: 24 - 48 hours
Subjective/Interval History
-
Date of Service: November 20, 2024
No chest pain
+ SOB
No abd pain
Objective Data
-
Labs:
Laboratory Results
11/20/24
04:52
WBC 10.5
Hgb 12.4
Hct 40.2
Plt Count 260
Sodium 142
Potassium 4.4
Chloride 91 L
Carbon Dioxide 40 H
BUN 29 H
Creatinine 0.9
Glucose 236 H
Calcium 9.8
Vital Signs:
Vital Signs
Temp Pulse Resp BP Pulse Ox
97.8 F 94 20 132/101 96
11/20/24 07:33 11/20/24 08:18 11/20/24 08:05 11/20/24 08:18 11/20/24 08:05
I&O
11/19/24 11/20/24 11/21/24
06:59 06:59 06:59
Intake Total 1095 / 1095
Output Total 510 / 510
Balance 585 / 585
--- NOTE | 2024-11-20 10:12 | W.PN.PUL3 ---
Today's Communication / Plan
-
Continue nebulizer therapy
Continue prednisone taper-slow taper currently at 50 mg decrease by 10 mg every 72 hours down to 10 mg-until seen in my office.
Few more days of azithromycin 500 mg
Continue oxygen supplementation
Nocturnal BiPAP
Palliative care to see
Patient is hospice appropriate but she is not ready for it. This has been discussed multiple times in the outpatient setting.
Hopefully can be discharged in the next 24 to 48 hours if health can be arranged at home enough to prevent recurrent admissions and safety
Assessment
-
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
PAD, history of asthma, anxiety, and chronic gastritis who presents with worsening shortness of breath. Patient reportedly has been more lethargic, fatigued. No reported change in chronic cough. Lately patient has been needing higher amount of
supplemental oxygen due to shortness of breath. Workup in the emergency room showed essentially unchanged chest x-ray and patient was noted to have worsening hypercapnia on blood gas. Pulmonary consultation was requested for further input.
Acute on chronic respiratory failure with hypoxia/hypercapnia
COPD exacerbation
Suspected PNA
Conditions present [employer]
#Chronic metabolic alkalosis due to compensation from chronic respiratory acidosis
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
#Former tobacco use disorder with >94-ozor-ctvr history
#DM type II with hyperglycemia (last HbA1c: 6 on 03/27/2024)
#Anemia with history of LUZ
#History of PE/DVT on Eliquis
Plan
Acute on chronic hypoxic and hypercapnic respiratory failure.
7., baseline pCO2 around mid 70's. Bicarb at 47, chronically in mid to high 30's.
Continue supplemental O2 to keep saturation 89% or above
While in the hospital continue with nocturnal BiPAP-and with naps as tolerated.
Work of breathing this morning at rest 11/20/2024-baseline. Does have minimal effort dyspnea. Worse compared to prior.
-
Continue Home NIPPV with Trilogy, (Baseline settings: AVAPS�AE, with TV: 300, min EPAP: 5, max EPAP: 14, min PS: 5, max PS: 30; she had an average IPAP of 18.5, average EPAP of 8.7, average VTe 355 mL, average minute ventilation: 7.3L/min, average
breaths per minute
-
Severe emphysema with acute COPD exacerbation, Home O2 and Steroid dependent with nightly AVAPS.
End-stage.
Office spirometry 2022: FEV1/FVC 36 with FEV1 0.5 L, 24% of predicted. Very severe airflow obstruction.
At baseline patient is on Perforomist, Budesonide with PRN Duoneb, Prednisone 5 mg daily and Ohthuvarye--max therapy
WBC count normal. Eosinophil count 0-400
Continue DuoNeb 4 times daily, budesonide twice daily, 3 days of azithromycin 500 mg daily
Additional albuterol on as-needed basis
Continue prednisone taper currently at 50 mg-slow taper over the next several weeks to her baseline.
-
LLL scarring vs Pneumonia. On review of prior imaging as well as CT scans in the past, left lower lobe scarring appears to be chronic.
Imaging not suggestive of acute pneumonia. WBC count is normal, patient is afebrile
Azithromycin 500 mg complete course for exacerbation of COPD and then back to every other day for anti-inflammatory properties.
Hold off additional antibiotics as presentation not suggestive of acute pneumonia
History of pulmonary nodules. Pulmonary nodules have been stable over the years.
Patient has end-stage COPD, unlikely to tolerate any additional workup or biopsies.
Can resume follow-up as outpatient
History of pulmonary embolism and DVT-Life long Eliquis, continued
Dr. Gamino discussed with the family in detail unfortunately decline year over a year on her functional capacity. With acute exacerbation there is decline in lung function and likely she will have a new baseline.
Suspect she will need 24/7 supervision-daughter and son at the bedside. Trying to decide what will be next step.
Patient would like to go home-palliative care to see family.
Dr. Gamino as discussed in the outpatient setting palliative care/hospice/DNR in the past. Patient not ready for hospice.
Explained that likely recurrent admissions to the hospital will likely happen.
Will discuss with case management what help can be provided at home for support. She would not want to go to a fdc facility or long-term care facility. Daughter unsure whether she can take care of her at home with increased needs.
Patient will resume follow-up after discharge with Dr. Gamino
Family Discussions
Arline- I called patient's daughter, Thuy, and updated her regarding current plan of care. Patient follows up with palliative care as outpatient but is currently not under hospice care. I recommended considering hospice evaluation considering
patient has end-stage COPD, with worsening functional capacity. Confirmed DNR/DNI CODE STATUS.
Data:
CXR 11/2024: Subtle left basilar opacity, likely scarring/atelectasis with pneumonia not excluded.
CT 11/2023: Severe centrilobular emphysema in the bilateral lung bases. Stable chronic scarring or atelectasis in the left lower lobe. 3 mm pulmonary nodule in the right middle lobe (image 1), stable compared to the chest CT from 2019 and most
compatible with a benign nodule.
Lexiscan 08/2023: No evidence of ischemia
ECHO 08/2023: Normal left ventricular size, wall thickness and systolic function. No regional wall motion abnormalities are seen. LV ejection fraction is 55-60% by Mansfield's method of discs. Stage I diastolic dysfunction suggestive of abnormal
relaxation. Valeriano EPIQ left ventricular global longitudinal strain is -13.7 (global strain is more normal/preserved at the apex and lateral wall). Normal right ventricular size and function. Mitral valve opens normally. Trace mitral
regurgitation. Trileaflet aortic valve. No aortic regurgitation is seen. Trace tricuspid regurgitation. Tricuspid valve opens normally. Estimated pulmonary artery pressure of 15-[address]-PE 2019: 1. Moderate amount of ACUTE BILATERAL PULMONARY ARTERIAL EMBOLIC DISEASE.
2. No CTA evidence for right heart dysfunction.
3. SEVERE BILATERAL CENTRILOBULAR EMPHYSEMA.
4. Stable solid pulmonary nodules measuring up to 6 mm in size (unchanged from 07/02/2017).
5. Severe calcific atherosclerotic disease of the coronary arteries.
Total time spent on this consultation/encounter __51_ minutes which includes review of history, physical exam, medications, laboratory data, personal review of imaging, extensive review of outpatient records, discussion with care team and
respiratory therapy.
Subjective Data
-
Date of Service:
Date of Service: November 20, 2024
Chief Complaint: Pulmonary Follow Up
Subjective:
She offers no new complaints.
Minimal effort dyspnea-worse compared to few weeks ago.
Denies increased phlegm production.
Denies leg edema
Overall improved since admission
Review of Systems
Cardiopulmonary: Dyspnea, Dyspnea on Exertion and Cough
GI: Abdominal Pain (n) and Nausea (n)
Objective Data
Data Reviewed
Vital Signs / I&O / Oxygen:
Vital Signs
Temp Pulse Resp BP Pulse Ox
97.8 F 103 27 135/107 96
11/20/24 07:33 11/20/24 10:00 11/20/24 10:00 11/20/24 10:00 11/20/24 08:05
Intake and Output
11/19/24 11/20/24 11/21/24
06:59 06:59 06:59
Intake Total 1095 / 1095
Output Total 510 / 510
Balance 585 / 585
SaO2 96
Nasal Cannula flow liters per 4
minute
Physical Exam
General: Comfortable and Other (NAD)
HEENT: Normocephalic, Anicteric and Moist Mucous Membranes
Cardiovascular: S1-S2 and Regular Rhythm
Respiratory: Clear (poor air movement) and Non-Labored Respirations
GI: Soft, Non Distended and Non Tender
Neurology: Awake, Alert, Oriented and No Motor Deficits
Skin: Warm, Dry and Good Color
Labs/Micro/Reports
Lab Data
11/20/24 04:52
11/20/24 04:52
--- NOTE | 2024-11-20 11:40 | HOSPNOTE ---
Notified by palliative care SURGEON ASSISTANTALMAS Perry that patient is not ready for hospice at this time. The plan is for patient to return home with palliative care services. Reviewed with palliative that we will be available when patient is ready for hospice
services. Hospice will sign off.
[2024-11-20] MEDS: NOVOLOG FLEXPEN-LOW RESISTANCE 1 UNITS SC (11:51)
--- NOTE | 2024-11-20 11:57 | W.CON.PAL ---
Consultation
-
Date/Time Consultation Requested: 11/19
Date/Time Consultation Performed: 11/20
Performing Provider: Vicky Curry
Reason for Consult: Goals of Care Discussion
Primary Diagnosis: end stage COPD
Reason for Admission
Illness Course/HPI
78 year old F known to our service as an outpatient with PMH of end stage COPD admitted with lethargy, AMS. Treating for COPD exacerbation. Weaned off IV steroids now on PO. Back to her baseline 02 levels.
Multiple discussions with both us and pulm regarding hospice- patient not ready for this. Family considering again this hospitalization.
Seen at bedside with son and daughter present. Discussed hospice and patient still not ready as she is not willing to give up hospitalizations if needed. She also has not required hospitalization in about 6 months so at the moment is not requiring
this frequently. DIscussed if this becomes more frequent, that would be a time where we could more seriously consider hospice transition if patient did not want to be coming back and forth, patient agrees.
DIscussed home needs as patient does not want to go to SNF. Will need VN, PT and OT. Also looking into private pay help and hospital bed with [employer] CM aware. Has an appt scheduled on Wednesday with our PC JULI[facility]. We will continue to follow her as an
outpatient and continue conversations as needed. DNR/DNI
Goals of Care Discussion
-
Individuals Present for Discussion & Relationship to Patient:
see above
Pain & Symptom Assessment
[place] Symptom Scale 0=none, 10=worst
Pain: 0
Tired: 0
Shortness of Breath: 0
Objective Data
-
Objective Data:
Vital Signs
Temp Pulse Resp BP Pulse Ox
97.8 F 105 22 135/107 96
11/20/24 07:33 11/20/24 11:30 11/20/24 11:30 11/20/24 10:00 11/20/24 08:05
Laboratory Results
11/20/24 04:52
11/20/24 04:52
Hemoglobin A1c 6.5 % (4.0-5.6) H 11/18/24 03:43
Total Protein 6.2 g/dl (6.3-8.2) L 11/17/24 12:33
Albumin 3.5 g/dl (3.5-5.0) 11/17/24 12:33
Palliative Performance Scale
Palliative Performance Scale:
PPS Level Ambulation Activity & Evidence of Disease Self Care Intake Conscious Level
100% Full Normal Activity & Work; Full Intake Full
No Evidence of Disease
90% Full Normal Activity & Work; Full Normal Full
Some Evidence of Disease
80% Full Normal Activity with Effort Full Normal or Full
Some Evidence of Disease Reduced
70% Reduced Unable Normal Job/Work Full Normal or Full
Significant Disease Reduced
60% Reduced Unable Hobby/Housework Occasional Normal or Full or Confusion
Significant Disease Assistance Reduced
50% Mainly Sit/Lie Unable to do Any Work Considerable Normal or Full or Confusion
Extensive Disease Assistance Req'd Reduced
40% Mainly in Bed Unable to do Most Activity Mainly Assistance Normal or Full or Drowsy;
Extensive Disease Reduced +/- Confusion
30% Totally Bed Unable to do Any Activity Total Care Normal or Full or Drowsy;
Bound Extensive Disease Reduced +/- Confusion
20% Totally Bed Bound Unable to do Any Activity Total Care Minimal to Full or Drowsy;
Extensive Disease Sips +/- Confusion
10% Totally Bed Bound Unable to do Any Activity Total Care Mouth Care Drowsy or Coma;
Extensive Disease Only +/- Confusion
0%
PPS Score Level:
Palliative Performance Score Response
Palliative Performance Score Response: 50%
Physical Exam
-
General: Appears Chronically Ill and Cachectic
HEENT: Normocephalic
Respiratory: Decreased Breath Sounds
Cardiac: Regular Rhythm
Peripheral Vascular: No Edema
GI: Soft
Skin: Warm
Neuro: AO x 3
Assessment / Plan
-
Assessment/Plan:
78 year old F with end stage COPD
- plan for home with continued palliative care follow up
- not ready for hospice
- needs hospital bed and private pay agency list
- [employer] desired - will need to buy out of pocket
Care Reviewed
Data Reviewed
Radiology procedure: Image Reviewed
Medical Tests: I reviewed
Reviewed with: Patient, Family, Physician and Other
[2024-11-20 12:00] LABS: Glucose - Point of Care 194 mg/dl (70-99)
[2024-11-20] MEDS: ATIVAN 0.25 MG PO (14:19)
--- NOTE | 2024-11-20 14:54 | PTCARENOTE ---
Pt taking off Bipap refuses to put back , tried t refuse O2 convinced pt that it was needed. Daughter asked that I felt carbonizer Ativan, which I did 0.25 po given pt not making sense when she talks , daughter crying. Pt calm with Ativan
--- NOTE | 2024-11-20 16:05 | W.PN.UPDATE ---
Update Note
Progress Note Update
Patient has developed confusion, agitation, likely delirium. Complete change from this morning.
Able to move 4 extremities.
Redirectable but wont keep her BiPAP machine on.
I personally discussed with daughter and explained the situation.
Will reduce steroids as able.
Will add Risperdal at night.
Haldol as needed for severe agitation.
There is risk of respiratory depression/aspiration-worsening hypercapnia. Will try to decrease stimulus.
Every situation.
Patient understands risky situation at this point
[2024-11-20] MEDS: DUONEB INH (16:10)
--- NOTE | 2024-11-20 16:25 | CM ---
Patient with Dx Acute Hypoxemic/Hypercarbic Respiratory Failure, COPD exacerbation. O2 4L. BiPAP- patient removed during the night. Receiving PO Abx. Per nurse; anxious, forgetful. PT/OT Evals pending.
Message from Vicky, Palliative Care; declined hospice, Palliative Care will continue to follow as outpatient.
Per Dr Gamino; patient developed delirium likely from steroids- reducing, and adding prn risperdal. Patient already has NIV at home - Won't push BiPAP use for now.
Met with patient, daughter Thuy and grand-dtr Wendy. The patient was intermittently oriented & confused, sometimes interrupting conversation impulsively. When asked she did not know where she was. Daughter seemed to be overwhelmed and was
tearful. Daughter feels her mother is becoming intermittently more confused, paranoid, agitated, and she is unsure she will be able to manage her at home even with caregivers. She says she wants to observe how her mother is doing in the next day or
so and decide what is best. She is hoping to get more input from the medical team to help make her d/c decisions.
Patient has arrangement with a friend who assists as a caregiver for a bath 1x/week. Daughter would like to hire a caregiver and initially was thinking 3-4 hrs/day would be sufficient. Suggested to Thuy that based on patient's cognitive status
she would need 24 hr supervision. Discussed considerations for hiring private pay caregiver and provided Caregiver list. Daughter feels she needs some time to arrange.
Daughter would like a hospital bed in place - agrees this will be ordered. Daughter understands that the [employer] she is requesting is not covered under insurance- daughter will look into placing an order through [employer] or through the
civil engineering manager's website.
Daughter agreed to [facility] again. Provided info that they have a that may be able to provide support as well. [facility]. She will order hospital bed once daughter confirms decision for home with [facility].
Plan follow up PT/OT Evals.
Plan probable home with daughter, with VN and caregiver, with hospital bed.
[2024-11-20] MEDS: NOVOLOG FLEXPEN-LOW RESISTANCE 4 UNITS SC (16:30)
[2024-11-20 16:43] LABS: Glucose - Point of Care 327 mg/dl (70-99)
[2024-11-20] MEDS: RISPERDAL 0.25 MG PO (17:08)
[2024-11-20] MEDS: RISPERDAL 0.5 MG PO (21:40)
[2024-11-20 21:53] LABS: Glucose - Point of Care 186 mg/dl (70-99)
[2024-11-21] VITALS (10 sets, daily range): BP systolic 123–165; BP diastolic 67–80; PULSE 91–94; O2SAT 100; BMI 20.1
--- NOTE | 2024-11-21 04:21 | PTCARENOTE ---
Pt oriented at times, confused at times, but remains cooperative with care. Pt agreeable to try BiPAP, however upon assessment shortly after, pt found to be without BiPAP, wearing nasal cannula again. Pt family at bedside admitted to transitioning
pt back to nasal O2 without assistance from staff. Pt family encouraged to press call lugo for assistance with care to reduce risk of pt harm. VSS. Call lugo within reach.
[2024-11-21] MEDS: PULMICORT 0.5 MG INH ×2 (07:27→20:06)
[2024-11-21] MEDS: DUONEB 3 ML INH ×4 (07:27→20:06)
[2024-11-21 08:08] LABS: Glucose - Point of Care 119 mg/dl (70-99)
[2024-11-21] MEDS: LEXAPRO 20 MG PO (08:19)
[2024-11-21] MEDS: DELTASONE 50 MG PO (08:19)
[2024-11-21] MEDS: PROTONIX 40 MG PO ×2 (08:19→19:58)
[2024-11-21] MEDS: ZITHROMAX 250 MG PO (08:19)
[2024-11-21] MEDS: NOVOLOG FLEXPEN-LOW RESISTANCE SC (08:19)
[2024-11-21] MEDS: ELIQUIS 5 MG PO ×2 (08:20→19:58)
[2024-11-21] MEDS: NORVASC 5 MG PO (08:20)
[2024-11-21] MEDS: GLUCOPHAGE XR EXTENDED RELEASE 500 MG PO ×2 (08:20→18:34)
[2024-11-21] MEDS: CARDIZEM CD 240 MG PO (08:20)
[2024-11-21] MEDS: MUCINEX 600 MG PO ×2 (08:20→19:58)
[2024-11-21] MEDS: NON-FORMULARY ITEM 625 MG PO (09:21)
--- NOTE | 2024-11-21 09:24 | PTCARENOTE ---
OOB to chair, Came back to find her with emesis bag on lap- Family states pt was drinking coffee sounded gurgly afterwards, now asking for her tums- PLB noted / RR26- Crackles bilateral noted prior to this. Tums provided, RT here to trial on bipap.
Speech/ PT and OT screenings placed.
--- NOTE | 2024-11-21 09:37 | W.PN.PUL3 ---
Today's Communication / Plan
-
Continue maximal nebulizer therapy
Azithromycin 250 mg for anti-inflammatory properties
Every other day Lasix
Oxygen supplementation
Nocturnal and as needed BiPAP
Physical therapy as able
Risperidone at bedtime while in the hospital.
Arrangement for discharge planning hopefully in the next 24 to 48 hours.
Assessment
-
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
PAD, history of asthma, anxiety, and chronic gastritis who presents with worsening shortness of breath. Patient reportedly has been more lethargic, fatigued. No reported change in chronic cough. Lately patient has been needing higher amount of
supplemental oxygen due to shortness of breath. Workup in the emergency room showed essentially unchanged chest x-ray and patient was noted to have worsening hypercapnia on blood gas. Pulmonary consultation was requested for further input.
Acute on chronic respiratory failure with hypoxia/hypercapnia
COPD exacerbation
Suspected PNA
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
#Chronic metabolic alkalosis due to compensation from chronic respiratory acidosis
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
#Former tobacco use disorder with >99-[id number] history
#DM type II with hyperglycemia (last HbA1c: 6 on 03/27/2024)
#Anemia with history of LUZ
#History of PE/DVT on Eliquis
Plan
Acute on chronic hypoxic and hypercapnic respiratory failure.
7.33/93, baseline pCO2 around mid 70's.
ABG 11/19/2024: 7.37/86/48
Continue supplemental O2 to keep saturation 89% or above
While in the hospital continue with nocturnal BiPAP-and with naps as tolerated.
Work of breathing this morning at rest 11/21/2024-baseline. Does have minimal effort dyspnea. Worse compared to prior.
Patient on every other day Lasix.
If patient stays in the hospital for longer, May consider few days of Diamox if metabolic acidosis continues to worsen.
-
Developed-delirium 11/20/2024.
Risperdal started at that time
Prednisone reduced
This morning 11/21/2024 improved mental status. Cooperative. Not agitated.
-
At discharge continue Home NIPPV with Trilogy, (Baseline settings: AVAPS�AE, with TV: 300, min EPAP: 5, max EPAP: 14, min PS: 5, max PS: 30; she had an average IPAP of 18.5, average EPAP of 8.7, average VTe 355 mL, average minute ventilation:
7.3L/min, average breaths per minute
-
Severe emphysema with acute COPD exacerbation, Home O2 and Steroid dependent with nightly AVAPS.
End-stage.
Office spirometry 2022: FEV1/FVC 36 with FEV1 0.5 L, 24% of predicted. Very severe airflow obstruction.
At baseline patient is on Perforomist, Budesonide with PRN Duoneb, Prednisone 5 mg daily and Ohthuvarye--max therapy
WBC count normal. Eosinophil count 0-400
Continue DuoNeb 4 times daily, budesonide twice daily, 3 days of azithromycin 250 mg daily
Additional albuterol on as-needed basis
Prednisone reduced to 30 mg daily 11/21/2024 due to delirium. Taper slowly over the next 1 to 2 weeks down to 10 mg. Continue to
-
LLL scarring vs Pneumonia. On review of prior imaging as well as CT scans in the past, left lower lobe scarring appears to be chronic.
Imaging not suggestive of acute pneumonia. WBC count is normal, patient is afebrile
Azithromycin 250 mg every other day for anti-inflammatory properties.
Hold off additional antibiotics as presentation not suggestive of acute pneumonia
History of pulmonary nodules. Pulmonary nodules have been stable over the years.
Patient has end-stage COPD, unlikely to tolerate any additional workup or biopsies.
Can resume follow-up as outpatient
History of pulmonary embolism and DVT-Life long Eliquis, continued
-
Physical therapy/Occupational Therapy evaluation today
Discharge planning once delirium completely clears.
Would observe for additional 24 hours.
Patient will resume follow-up after discharge with Dr. Gamino
Family Discussions
Dr. Gamino discussed with the family 11/20/2024 and 2024 in detail unfortunately decline year over a year on her functional capacity. With acute exacerbation there is decline in lung function and likely she will have a new baseline.
Suspect she will need 24/7 supervision-daughter and son at the bedside. Trying to decide what will be next step.
Patient would like to go home-palliative care to see family.
Dr. Gamino as discussed in the outpatient setting palliative care/hospice/DNR in the past. Patient not ready for hospice.
Explained that likely recurrent admissions to the hospital will likely happen.
In my opinion, patient is hospice appropriate. This was discussed with daughter again. She will continue to discussed with mother was not ready for it.
Will discuss with case management what help can be provided at home for support. She would not want to go to a [facility] facility or long-term care facility. Daughter unsure whether she can take care of her at home with increased needs.
Arline- I called patient's daughter, Thuy, and updated her regarding current plan of care. Patient follows up with palliative care as outpatient but is currently not under hospice care. I recommended considering hospice evaluation considering
patient has end-stage COPD, with worsening functional capacity. Confirmed DNR/DNI CODE STATUS.

Data:
CXR 11/2024: Subtle left basilar opacity, likely scarring/atelectasis with pneumonia not excluded.
CT 11/2023: Severe centrilobular emphysema in the bilateral lung bases. Stable chronic scarring or atelectasis in the left lower lobe. 3 mm pulmonary nodule in the right middle lobe (image 1), stable compared to the chest CT from 2019 and most
compatible with a benign nodule.
Lexiscan 08/2023: No evidence of ischemia
ECHO 08/2023: Normal left ventricular size, wall thickness and systolic function. No regional wall motion abnormalities are seen. LV ejection fraction is 55-60% by Mansfield's method of discs. Stage I diastolic dysfunction suggestive of abnormal
relaxation. Valeriano EPIQ left ventricular global longitudinal strain is -13.7 (global strain is more normal/preserved at the apex and lateral wall). Normal right ventricular size and function. Mitral valve opens normally. Trace mitral
regurgitation. Trileaflet aortic valve. No aortic regurgitation is seen. Trace tricuspid regurgitation. Tricuspid valve opens normally. Estimated pulmonary artery pressure of 15-[address]-PE 2019: 1. Moderate amount of ACUTE BILATERAL PULMONARY ARTERIAL EMBOLIC DISEASE.
2. No CTA evidence for right heart dysfunction.
3. SEVERE BILATERAL CENTRILOBULAR EMPHYSEMA.
4. Stable solid pulmonary nodules measuring up to 6 mm in size (unchanged from 07/02/2017).
5. Severe calcific atherosclerotic disease of the coronary arteries.
Total time spent on this consultation/encounter __45_ minutes which includes review of history, physical exam, medications, laboratory data, personal review of imaging, extensive review of outpatient records, discussion with care team and
respiratory therapy.
Subjective Data
-
Date of Service:
Date of Service: November 21, 2024
Chief Complaint: Pulmonary Follow Up
Subjective:
This morning mental status improved
Continues to have minimal effort dyspnea
No significant expectoration or hemoptysis
Oxygen supplementation at baseline
Review of Systems
Cardiopulmonary: Dyspnea, Dyspnea on Exertion and Cough
GI: Abdominal Pain (n) and Nausea (n)
Objective Data
Data Reviewed
Vital Signs / I&O / Oxygen:
Vital Signs
Temp Pulse Resp BP Pulse Ox
98.5 F 96 25 150/71 99
11/20/24 22:33 11/21/24 08:00 11/21/24 08:00 11/21/24 08:00 11/21/24 08:00
Intake and Output
11/20/24 11/21/24 11/22/24
06:59 06:59 06:59
Intake Total 1095 / 1095
Output Total 510 / 510
Balance 585 / 585
SaO2 99
Nasal Cannula flow liters per 3
minute
Physical Exam
General: Comfortable and Other (NAD)
HEENT: Normocephalic, Anicteric and Moist Mucous Membranes
Cardiovascular: S1-S2 and Regular Rhythm
Respiratory: Clear (poor air movement) and Non-Labored Respirations
GI: Soft, Non Distended and Non Tender
Neurology: Awake, Alert, Oriented and No Motor Deficits
Skin: Warm, Dry and Good Color
Labs/Micro/Reports
Lab Data
11/20/24 04:52
11/20/24 04:52
--- NOTE | 2024-11-21 10:56 | VNURNOTE ---
Addendum entered by Rosie Maya RN 11/21/24 11:34:
Spoke with patient's daughter Thuy. She would like to take patient back to her home when medically cleared. She will need a hospital bed set up prior to taking pt home. [facility] liaison happy to arrange DME. Explained [facility] services and that hosp
bed would take a few days to coordinate. Daughter appreciative and agreeable. Provided [facility] contact info to daughter. Confirmed with Elizabeth at [facility] if they have hospital beds in stock. Will send Rx and clinicals to [facility]. [facility] referral placed
in [facility].
Original Note:
Chart reviewed. Appears that patient continued with intermittent confusion overnight. [facility] liaison reached out to daughter Thuy, called her cell - no answer. Awaiting firm DC plan: Home w/[facility] and 24 hr caregivers v. SNF.
--- NOTE | 2024-11-21 11:07 | W.PN.HOSP.TC ---
Today's Communication/Plan
-
Ok to use own Bipap
Assessment / Plan
Assessment / Plan
Physical Exam
General: Cachexia, in mild respiratory distress ( seems baseline per patient)
HEENT: Anicteric and Oxygen (Nasal Cannula)
Respiratory: very limited, using few neck accessory muscles)
Cardiac: S1/S2, Tachycardia (Slightly) and Murmur (II/ Systolic Murmur)
GI: Soft and Non Tender
Rectal: No rectal bleeding.
Musculoskeletal: No Clubbing, No Cyanosis and No Edema
Skin: Warm and Dry
Neuro: Awake, Alert, Oriented and Nonfocal/grossly intact
Psych: cooperative, no agitation.
Assessment:
Acute on Chronic Hypoxemic/Hypercarbic Respiratory Failure
- continue BiPAP HS and prn
Acute COPD Exacerbation
- s/p IV steroid, now changed to oral 50 mg prednisone 11/20 then taper to 10 mg daily.
- continue DuoNeb QID and PRN
- continue Pulmicort Neb
- continue Mucinex 600mg BID
- Zithromax course for anti-inflammatory effects,
d/w Dr Gamino, recommend palliative care/ hospice. Pt & family are made aware
Appreciate pulmonary help
#Chronic Right Upper Quadrant Pain
- continue Protonix BID
#Acute delirium , suspect combination of high dose steroid/ hospital acquired
Seems better now. Family is providing support
Chronic HFpEF
- continue Lasix
Weight is stable.
Essential Hypertension
- continue amlodipine and diltiazem
Diabetes Mellitus, Type II
We will not enforce very tight blood glucose control since we are considering comfort care
- continue metformin
- monitored sugars and continue coverage insulin
History of DVT / PE
- continue Eliquis
# Leukocytosis
resolved
No fevers
# Moderate protein calorie malnutrition due to chronic illness
Pulmonary disease is with progression/ poor prognosis.
She continues to have weight did not change since evaluated last year, + muscle wasting.
-Ambulatory dysfunction
-Patient is in need of some eye-electric hospital bed with foam mattress due to the need to elevate head of bed above 30 degrees to prevent aspiration and to facilitate frequent repositioning to prevent bed ulcers and pressure points.
Anxiety / Depression
- Resume PRN oral lorazepam
- continue Lexapro
ASCVD / PAD s/p Bilateral Fem-Pop Bypass
- stable
DVT ppx: Eliquis
Code Status: DNR/DNI. Palliative care consulted as pulmonary recommended hospice which family is seriously considering.
Total time spent to see the patient, examine the patient, review data and lab results, discuss treatment plan with patient and nursing staff around 55 minutes
Anticipated Discharge: 24 - 48 hours
Subjective/Interval History
-
Date of Service: November 21, 2024
No worsening sob
No fevers
Objective Data
-
Vital Signs:
Vital Signs
Temp Pulse Resp BP Pulse Ox
97.9 F 96 25 150/71 99
11/21/24 07:45 11/21/24 08:00 11/21/24 08:00 11/21/24 08:00 11/21/24 08:00
I&O
11/20/24 11/21/24 11/22/24
06:59 06:59 06:59
Intake Total 1095 / 1095
Output Total 510 / 510
Balance 585 / 585
--- NOTE | 2024-11-21 12:12 | PTCARENOTE ---
Found off bipap, o2 3L NC intact- son and daughter at bedside. Bipap protocols d/w family. RT evaluated. Dr. Perez aware.
[2024-11-21 12:32] LABS: Glucose - Point of Care 203 mg/dl (70-99)
[2024-11-21] MEDS: NOVOLOG FLEXPEN-LOW RESISTANCE 2 UNITS SC ×2 (12:49→18:35)
[2024-11-21 18:31] LABS: Glucose - Point of Care 244 mg/dl (70-99)
[2024-11-21] MEDS: NON-FORMULARY ITEM 2 MG PO (19:58)
[2024-11-21 21:49] LABS: Glucose - Point of Care 202 mg/dl (70-99)
[2024-11-21] MEDS: RISPERDAL 0.5 MG PO (21:59)
[2024-11-22] VITALS (7 sets, daily range): BP systolic 107–135; BP diastolic 59–78; BMI 19.8
--- NOTE | 2024-11-22 04:38 | PTCARENOTE ---
patient removed bipap and placed NC 3L back on without staff supervision. Educated patient and family to use call lugo for assistance. Protocols discussed with patient and family. Patient asked to switch bipap masks because she doesn't like her home
mask. RT evaluated and adjusted mask. Home bipap back on patient, sating at 99%
[2024-11-22] MEDS: PULMICORT 0.5 MG INH ×2 (07:14→19:10)
[2024-11-22] MEDS: DUONEB 3 ML INH ×4 (07:15→19:10)
--- NOTE | 2024-11-22 07:47 | PTCARENOTE ---
Pt sleeping with daughter at bedside .
[2024-11-22] MEDS: NOVOLOG FLEXPEN-LOW RESISTANCE SC (08:36)
[2024-11-22] MEDS: GLUCOPHAGE XR EXTENDED RELEASE 500 MG PO ×2 (08:37→17:14)
[2024-11-22] MEDS: DELTASONE 30 MG PO (08:38)
[2024-11-22] MEDS: MUCINEX 600 MG PO ×2 (08:38→19:49)
[2024-11-22] MEDS: PROTONIX 40 MG PO ×2 (08:38→19:49)
[2024-11-22] MEDS: LASIX 20 MG PO (08:38)
[2024-11-22] MEDS: NORVASC PO (08:39)
[2024-11-22] MEDS: CARDIZEM CD 240 MG PO (08:39)
[2024-11-22] MEDS: ZITHROMAX 250 MG PO (08:39)
[2024-11-22] MEDS: LEXAPRO 20 MG PO (08:40)
[2024-11-22] MEDS: ELIQUIS 5 MG PO ×2 (08:40→19:49)
[2024-11-22 08:48] LABS: Glucose - Point of Care 131 mg/dl (70-99)
--- NOTE | 2024-11-22 10:26 | W.PN.HOSP.TC ---
Today's Communication/Plan
-
dc in AM
Assessment / Plan
Assessment / Plan
Physical Exam
General: Cachexia, in mild respiratory distress ( seems baseline per patient)
HEENT: Anicteric and Oxygen (Nasal Cannula)
Respiratory: very limited, using few neck accessory muscles)
Cardiac: S1/S2, Tachycardia (Slightly) and Murmur (II/ Systolic Murmur)
GI: Soft and Non Tender
Rectal: No rectal bleeding.
Musculoskeletal: No Clubbing, No Cyanosis and No Edema
Skin: Warm and Dry
Neuro: Awake, Alert, Oriented and Nonfocal/grossly intact
Psych: cooperative, no agitation.
Assessment:
Acute on Chronic Hypoxemic/Hypercarbic Respiratory Failure
- continue BiPAP HS and prn
Acute COPD Exacerbation
- s/p IV steroid, now changed to oral 50 mg prednisone 11/20 then taper to 10 mg daily.
- continue DuoNeb QID and PRN
- continue Pulmicort Neb
- continue Mucinex 600mg BID
- Zithromax course for anti-inflammatory effects,
d/w Dr Gamino, recommend palliative care/ hospice. Pt & family are made aware
Appreciate pulmonary help
#Chronic Right Upper Quadrant Pain
- continue Protonix BID
#Acute delirium , suspect combination of high dose steroid/ hospital acquired
Seems better now. Family is providing support
Chronic HFpEF
- continue Lasix
Weight is stable.
Essential Hypertension
- continue amlodipine and diltiazem
Diabetes Mellitus, Type II
We will not enforce very tight blood glucose control since we are considering comfort care
- continue metformin
- monitored sugars and continue coverage insulin
History of DVT / PE
- continue Eliquis
# Leukocytosis
resolved
No fevers
# Moderate protein calorie malnutrition due to chronic illness
Pulmonary disease is with progression/ poor prognosis.
She continues to have weight did not change since evaluated last year, + muscle wasting.
-Ambulatory dysfunction
-Patient is in need of some eye-electric hospital bed with foam mattress due to the need to elevate head of bed above 30 degrees to prevent aspiration and to facilitate frequent repositioning to prevent bed ulcers and pressure points.
Anxiety / Depression
- Resume PRN oral lorazepam
- continue Lexapro
ASCVD / PAD s/p Bilateral Fem-Pop Bypass
- stable
DVT ppx: Eliquis
Code Status: DNR/DNI. Palliative care consulted as pulmonary recommended hospice which family is seriously considering.
Total time spent to see the patient, examine the patient, review data and lab results, discuss treatment plan with patient, daughter and nursing staff around 55 minutes
Anticipated Discharge: Within 24 hours
Subjective/Interval History
-
Date of Service: November 22, 2024
no chest pain
same level of sob
Objective Data
-
Vital Signs:
Vital Signs
Temp Pulse Resp BP Pulse Ox
97.7 F 78 22 112/59 94
11/22/24 07:36 11/22/24 08:39 11/22/24 07:36 11/22/24 10:00 11/22/24 10:00
I&O
11/21/24 11/22/24 11/23/24
06:59 06:59 06:59
Intake Total 360 / 360
Balance 360 / 360
--- NOTE | 2024-11-22 10:31 | CM ---
Addendum entered by Kemi Mace RN 11/22/24 15:23:
Met with patient daughter, grand-daughters.
Daughter sleeping and did not wake up during conversation.
IMM completed with patient.
Addendum entered by Kemi Mace RN 11/22/24 11:02:
Update from RADHA Colon; [facility] will be fulfilling the hospital bed order.
Original Note:
Patient with Dx Acute Hypoxemic/Hypercarbic Respiratory Failure, COPD exacerbation. O2 3L. BiPAP HS. Receiving PO Abx, Risperdal. PT 11/21 recommends HH. OT 11/21; home with assist.
Spoke with patient's daughter Dov; she would like to take the patient home tomorrow. Daughter states she has not heard from [facility] about the hospital bed delivery - she is aware that [facility] will facilitate hospital bed delivery today.
Daughter wishes to have their private caregiver Laura assist and is waiting for her to confirm she can provide more c/g hours, if not she will add miriam or daughterly companions or other agency as needed. Daughter wishes to remain involved as
the primary caregiver. Daughter says her mother is more alert today and daughter seems less stressed now and able to take her mother home.
Message from RADHA Colon; she will contact [facility] today about the bed delivery.
Message from Neeta, Palliative Care; she spoke with daughter Thuy. Neeta asked [facility] to reach out to discuss arranging care for d/c. Thuy is also worried about having the hospital bed in place at home prior to d/c.
As per prior CM notes, patient has home O2 and BiPAP in place.
Plan home tomorrow with hospital bed, caregiver support with daughter.
--- NOTE | 2024-11-22 11:07 | VNURNOTE ---
[facility] liaison confirmed with Elizabeth at [facility] that they spoke with patient's daughter Thuy. [facility] will deliver hosp bed today between 11-.
[2024-11-22 12:22] LABS: Glucose - Point of Care 181 mg/dl (70-99)
[2024-11-22] MEDS: NOVOLOG FLEXPEN-LOW RESISTANCE 1 UNITS SC (12:34)
[2024-11-22] MEDS: NON-FORMULARY ITEM 2 MG PO ×2 (12:35→17:32)
--- NOTE | 2024-11-22 13:34 | W.PN.PUL3 ---
Today's Communication / Plan
-
Continue with current maximal medical therapy
Discharge planning
Continue Risperdal at bedtime
Prednisone 30 mg for 7 days then 20 mg for 7 days and then 10 mg indefinitely.
Hopefully can discharge tomorrow if everything is arranged in regards to additional care as well as hospital bed etc.
Will follow
Assessment
-
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
PAD, history of asthma, anxiety, and chronic gastritis who presents with worsening shortness of breath. Patient reportedly has been more lethargic, fatigued. No reported change in chronic cough. Lately patient has been needing higher amount of
supplemental oxygen due to shortness of breath. Workup in the emergency room showed essentially unchanged chest x-ray and patient was noted to have worsening hypercapnia on blood gas. Pulmonary consultation was requested for further input.
Acute on chronic respiratory failure with hypoxia/hypercapnia
COPD exacerbation
Suspected PNA
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
#Chronic metabolic alkalosis due to compensation from chronic respiratory acidosis
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
#Former tobacco use disorder with >27-tfch-uqyz history
#DM type II with hyperglycemia (last HbA1c: 6 on 03/27/2024)
#Anemia with history of LUZ
#History of PE/DVT on Eliquis
Plan
Overall clinically improved since yesterday-no further delirium or change in mental status.
- Per daughter mentation is better.
Acute on chronic hypoxic and hypercapnic respiratory failure.
7.33/93, baseline pCO2 around mid 70's.
ABG 11/19/2024: 7.37/86/48
Continue supplemental O2 to keep saturation 89% or above
While in the hospital continue with nocturnal BiPAP-and with naps as tolerated.
Work of breathing this morning at rest 11/21/2024-baseline. Does have minimal effort dyspnea. Worse compared to prior.
Patient on every other day Lasix.
If patient stays in the hospital for longer, May consider few days of Diamox if metabolic acidosis continues to worsen.
-
Developed-delirium 11/20/2024-clinically improved 11/22/2024.
Risperdal at bedtime will continue while in the hospital.
Prednisone reduced
-
At discharge continue Home NIPPV with Trilogy, (Baseline settings: AVAPS�AE, with TV: 300, min EPAP: 5, max EPAP: 14, min PS: 5, max PS: 30; she had an average IPAP of 18.5, average EPAP of 8.7, average VTe 355 mL, average minute ventilation:
7.3L/min, average breaths per minute
-
Severe emphysema with acute COPD exacerbation, Home O2 and Steroid dependent with nightly AVAPS.
End-stage.
Office spirometry 2022: FEV1/FVC 36 with FEV1 0.5 L, 24% of predicted. Very severe airflow obstruction.
At baseline patient is on Perforomist, Budesonide with PRN Duoneb, Prednisone 5 mg daily and Ohthuvarye--max therapy
WBC count normal. Eosinophil count 0-400
Continue DuoNeb 4 times daily, budesonide twice daily, 3 days of azithromycin 250 mg daily
Additional albuterol on as-needed basis
Prednisone reduced to 30 mg daily 11/21/2024 due to delirium. Decrease by 10 mg every 7 days and will keep on a baseline of [address] Gamino in the office
-
LLL scarring vs Pneumonia. On review of prior imaging as well as CT scans in the past, left lower lobe scarring appears to be chronic.
Imaging not suggestive of acute pneumonia. WBC count is normal, patient is afebrile
Azithromycin 250 mg every other day for anti-inflammatory properties.
Hold off additional antibiotics as presentation not suggestive of acute pneumonia
History of pulmonary nodules. Pulmonary nodules have been stable over the years.
Patient has end-stage COPD, unlikely to tolerate any additional workup or biopsies.
Can resume follow-up as outpatient
History of pulmonary embolism and DVT-Life long Eliquis, continued
-
Physical therapy/Occupational Therapy as able.
-
Discharge planning ongoing. Family would like to take her home. Case management has been arranging and coordinating for more additional care as well as hospital bed etc.
Will continue with ongoing goals of care discussions in the future.
Patient will resume follow-up after discharge with Dr. Gamino
Family Discussions
Dr. Gamino discussed with the family 11/20/2024 and 2024 in detail unfortunately decline year over a year on her functional capacity. With acute exacerbation there is decline in lung function and likely she will have a new baseline.
Suspect she will need 24/7 supervision-daughter and son at the bedside. Trying to decide what will be next step.
Patient would like to go home-palliative care to see family.
Dr. Gamino as discussed in the outpatient setting palliative care/hospice/DNR in the past. Patient not ready for hospice.
Explained that likely recurrent admissions to the hospital will likely happen.
In my opinion, patient is hospice appropriate. This was discussed with daughter again. She will continue to discussed with mother was not ready for it.
Will discuss with case management what help can be provided at home for support. She would not want to go to a custodial facility or long-term care facility. Daughter unsure whether she can take care of her at home with increased needs.
Arline- I called patient's daughter, Thuy, and updated her regarding current plan of care. Patient follows up with palliative care as outpatient but is currently not under hospice care. I recommended considering hospice evaluation considering
patient has end-stage COPD, with worsening functional capacity. Confirmed DNR/DNI CODE STATUS.

Data:
CXR 11/2024: Subtle left basilar opacity, likely scarring/atelectasis with pneumonia not excluded.
CT 11/2023: Severe centrilobular emphysema in the bilateral lung bases. Stable chronic scarring or atelectasis in the left lower lobe. 3 mm pulmonary nodule in the right middle lobe (image 1), stable compared to the chest CT from 2019 and
compatible with a benign nodule.
Lexiscan 08/2023: No evidence of ischemia
ECHO 08/2023: Normal left ventricular size, wall thickness and systolic function. No regional wall motion abnormalities are seen. LV ejection fraction is 55-60% by Mansfield's method of discs. Stage I diastolic dysfunction suggestive of abnormal
relaxation. Valeriano EPIQ left ventricular global longitudinal strain is -13.7 (global strain is more normal/preserved at the apex and lateral wall). Normal right ventricular size and function. Mitral valve opens normally. Trace mitral
regurgitation. Trileaflet aortic valve. No aortic regurgitation is seen. Trace tricuspid regurgitation. Tricuspid valve opens normally. Estimated pulmonary artery pressure of 15-[address]-PE 2019: 1. Moderate amount of ACUTE BILATERAL PULMONARY ARTERIAL EMBOLIC DISEASE.
2. No CTA evidence for right heart dysfunction.
3. SEVERE BILATERAL CENTRILOBULAR EMPHYSEMA.
4. Stable solid pulmonary nodules measuring up to 6 mm in size (unchanged from 07/02/2017).
5. Severe calcific atherosclerotic disease of the coronary arteries.
Total time spent on this consultation/encounter __41_ minutes which includes review of history, physical exam, medications, laboratory data, personal review of imaging, extensive review of outpatient records, discussion with care team and
respiratory therapy.
Subjective Data
-
Date of Service:
Date of Service: November 22, 2024
Chief Complaint: Pulmonary Follow Up
Subjective:
No new overnight events
Tolerating BiPAP
Denies increased phlegm production
Mental status improved
Review of Systems
Cardiopulmonary: Dyspnea and Dyspnea on Exertion (chronic)
GI: Abdominal Pain (n) and Nausea (n)
Objective Data
Data Reviewed
Vital Signs / I&O / Oxygen:
Vital Signs
Temp Pulse Resp BP Pulse Ox
97.7 F 82 15 112/59 94
11/22/24 07:36 11/22/24 11:20 11/22/24 11:20 11/22/24 10:00 11/22/24 10:00
Intake and Output
11/21/24 11/22/24 11/23/24
06:59 06:59 06:59
Intake Total 360 / 360
Balance 360 / 360
SaO2 94
Nasal Cannula flow liters per 3
minute
Physical Exam
General: Comfortable and Other (NAD)
HEENT: Normocephalic, Anicteric and Moist Mucous Membranes
Cardiovascular: S1-S2 and Regular Rhythm
Respiratory: Clear (poor air movement) and Non-Labored Respirations
GI: Soft, Non Distended and Non Tender
Neurology: Awake, Alert, Oriented and No Motor Deficits
Skin: Warm, Dry and Good Color
Labs/Micro/Reports
Lab Data
11/20/24 04:52
11/20/24 04:52
[2024-11-22 17:30] LABS: Glucose - Point of Care 236 mg/dl (70-99)
[2024-11-22] MEDS: NOVOLOG FLEXPEN-LOW RESISTANCE 2 UNITS SC (17:31)
[2024-11-22] MEDS: RISPERDAL 0.5 MG PO (21:33)
[2024-11-22 22:17] LABS: Glucose - Point of Care 240 mg/dl (70-99)
--- NOTE | 2024-11-22 23:00 | PTCARENOTE ---
Received patient from IMU at approx 2230. 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 Oriented to room. Call lugo within reach.
--- NOTE | 2024-11-22 23:05 | PTCARENOTE ---
Patient refusing to wear Bipap. Says she wants to keep oxygen on.
[2024-11-23 06:00] VITALS: BMI 20.2
[2024-11-23 07:00] VITALS: BP 156/65
[2024-11-23] MEDS: PULMICORT 0.5 MG INH (07:11)
[2024-11-23] MEDS: DUONEB 3 ML INH ×2 (07:11→11:10)
[2024-11-23 07:36] LABS: Glucose - Point of Care 129 mg/dl (70-99)
--- NOTE | 2024-11-23 08:32 | VNURNOTE ---
Received call from daughter Thuy that she now wants hospice for patient. She stated she doesn't want the term 'hospice' used with patient, she wants hospice introduced as 'palliative.' Explained that hospice cannot introduce themselves falsely
as another discipline. (noted that hospice was consulted and declined earlier this hospitalization). Updated CM Cindy. Will follow for final DC dispo.
[2024-11-23 08:45] VITALS: BMI 20.2
--- NOTE | 2024-11-23 09:13 | W.PN.HOSP.TC ---
Today's Communication/Plan
-
discharge
Assessment / Plan
Assessment / Plan
Physical Exam
General: Cachexia, in mild respiratory distress ( seems baseline per patient)
HEENT: Anicteric and Oxygen (Nasal Cannula)
Respiratory: very limited, using few neck accessory muscles)
Cardiac: S1/S2, Tachycardia (Slightly) and Murmur (II/ Systolic Murmur)
GI: Soft and Non Tender
Rectal: No rectal bleeding.
Musculoskeletal: No Clubbing, No Cyanosis and No Edema
Skin: Warm and Dry
Neuro: Awake, Alert, Oriented and Nonfocal/grossly intact
Psych: cooperative, no agitation.
Assessment:
# GOC
d/w Pt and daughter, recommend hospice at home for more services and convenience in all aspects. She can go home and receive hospice there per wishes.
Acute on Chronic Hypoxemic/Hypercarbic Respiratory Failure
- continue BiPAP HS and prn
Acute COPD Exacerbation
- s/p IV steroid, now changed to oral 50 mg prednisone 11/20 then taper to 10 mg daily.
- continue DuoNeb QID and PRN
- continue Pulmicort Neb
- continue Mucinex 600mg BID
- Zithromax course for anti-inflammatory effects,
d/w Dr Gamino, recommend palliative care/ hospice. Pt & family are made aware
Appreciate pulmonary help
#Chronic Right Upper Quadrant Pain
- continue Protonix BID
#Acute delirium , suspect combination of high dose steroid/ hospital acquired
Seems better now and back to baseline. Family is providing support
Chronic HFpEF
- continue Lasix
Weight is stable.
Essential Hypertension
- continue amlodipine and diltiazem
Diabetes Mellitus, Type II
We will not enforce very tight blood glucose control since we are considering comfort care
- continue metformin
- monitored sugars and continue coverage insulin
History of DVT / PE
- continue Eliquis
# Leukocytosis
resolved
No fevers
# Moderate protein calorie malnutrition due to chronic illness
Pulmonary disease is with progression/ poor prognosis.
She continues to have weight did not change since evaluated last year, + muscle wasting.
-Ambulatory dysfunction
-Patient is in need of some eye-electric hospital bed with foam mattress due to the need to elevate head of bed above 30 degrees to prevent aspiration and to facilitate frequent repositioning to prevent bed ulcers and pressure points.
Anxiety / Depression
- Resume PRN oral lorazepam
- continue Lexapro
ASCVD / PAD s/p Bilateral Fem-Pop Bypass
- stable
DVT ppx: Eliquis
Code Status: DNR/DNI. Palliative care consulted as pulmonary recommended hospice which family is seriously considering.
Total discharge time spent to see the patient, examine the patient, review data and lab results, discuss discharge plan with patient, daughter and nursing staff around 67 minutes
Anticipated Discharge: Today
Subjective/Interval History
-
Date of Service: November 23, 2024
Same SOB
Plan to go home today
Objective Data
-
Vital Signs:
Vital Signs
Temp Pulse Resp BP Pulse Ox
97.7 F 82 16 156/65 99
11/23/24 07:00 11/23/24 07:25 11/23/24 07:25 11/23/24 07:00 11/23/24 07:25
I&O
11/22/24 11/23/24 11/24/24
06:59 06:59 06:59
Intake Total 360 / 360 100 / 100
Balance 360 / 360 100 / 100
--- NOTE | 2024-11-23 09:43 | W.PN.PUL3 ---
Today's Communication / Plan
-
Continue with discharge plans
Slow prednisone taper down to 10 mg as below
Resume outpatient regimen
Outpatient NIV follow-up instructions left in chart
Disposition efforts
Assessment
-
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
PAD, history of asthma, anxiety, and chronic gastritis who presents with worsening shortness of breath. Patient reportedly has been more lethargic, fatigued. No reported change in chronic cough. Lately patient has been needing higher amount of
supplemental oxygen due to shortness of breath. Workup in the emergency room showed essentially unchanged chest x-ray and patient was noted to have worsening hypercapnia on blood gas. Pulmonary consultation was requested for further input.
Acute on chronic respiratory failure with hypoxia/hypercapnia
COPD exacerbation
Suspected PNA
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
#Chronic metabolic alkalosis due to compensation from chronic respiratory acidosis
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
#Former tobacco use disorder with >52-cdzm-njzo history
#DM type II with hyperglycemia (last HbA1c: 6 on 03/27/2024)
#Anemia with history of LUZ
#History of PE/DVT on Eliquis
Plan
At this time, she is without complaints
Chest exam has improved
Daughter and family at bedside feels she has improved
Presently she is on 3 L. Her baseline is 2 L at home
Moving forward
Continue with oxygen therapy. Patient does have pulse oximeter at home, maintain greater than 89%
This was reviewed with family
Diuresis continues per primary service
Acute on chronic hypoxic and hypercapnic respiratory failure noted
7.33/93, baseline pCO2 around mid 70's.
ABG 11/19/2024: 7.37/86/48
Avoid sedation, narcotic therapy
At discharge continue Home NIPPV with Trilogy, (Baseline settings: AVAPS�AE, with TV: 300, min EPAP: 5, max EPAP: 14, min PS: 5, max PS: 30; she had an average IPAP of 18.5, average EPAP of 8.7, average VTe 355 mL, average minute ventilation:
7.3L/min, average breaths per minute
Developed-delirium 11/20/2024-clinically improved 11/22/2024.
Risperdal at bedtime will continue while in the hospital.
Prednisone reduced, continue as outpatient with short-term follow-up with pulmonary. Will plan to decrease by 10 mg every 7 days until 10 mg dose reached and this will be maintained
Patient is steroid-dependent, oxygen dependent
No indication for antibiotics at this time
Chronic left lower lobe process noted
Maintain macrolide therapy as outpatient for anti-inflammatory properties
Office spirometry 2022: FEV1/FVC 36 with FEV1 0.5 L, 24% of predicted. Very severe airflow obstruction.
At baseline patient is on Perforomist, Budesonide with PRN Duoneb, Prednisone 5 mg daily and Ohthuvarye--max therapy
Continue DuoNeb 4 times daily, budesonide twice daily, 3 days of azithromycin 250 mg daily
Additional albuterol on as-needed basis
History of pulmonary nodules. Pulmonary nodules have been stable over the years.
Patient has end-stage COPD, unlikely to tolerate any additional workup or biopsies.
Can resume follow-up as outpatient
History of pulmonary embolism and DVT-Life long Eliquis, continued
Physical therapy/Occupational Therapy as able.
Discharge planning ongoing. Family would like to take her home. Case management has been arranging and coordinating for more additional care as well as hospital bed etc.
Will continue with ongoing goals of care discussions in the future.
Patient will resume follow-up after discharge with Dr. Gamino
Information left in chart. All questions answered
Disposition efforts noted
Family Discussions
Dr. Gamino discussed with the family 11/20/2024 and 2024 in detail unfortunately decline year over a year on her functional capacity. With acute exacerbation there is decline in lung function and likely she will have a new baseline.
Suspect she will need 24/ supervision-daughter and son at the bedside. Trying to decide what will be next step.
Patient would like to go home-palliative care to see family.
Dr. Gamino as discussed in the outpatient setting palliative care/hospice/DNR in the past. Patient not ready for hospice.
Explained that likely recurrent admissions to the hospital will likely happen.
In my opinion, patient is hospice appropriate. This was discussed with daughter again. She will continue to discussed with mother was not ready for it.
Will discuss with case management what help can be provided at home for support. She would not want to go to a prison facility or long-term care facility. Daughter unsure whether she can take care of her at home with increased needs.
Arline- I called patient's daughter, Thuy, and updated her regarding current plan of care. Patient follows up with palliative care as outpatient but is currently not under hospice care. I recommended considering hospice evaluation considering
patient has end-stage COPD, with worsening functional capacity. Confirmed DNR/DNI CODE STATUS.

Data:
CXR 11/2024: Subtle left basilar opacity, likely scarring/atelectasis with pneumonia not excluded.
CT 11/2023: Severe centrilobular emphysema in the bilateral lung bases. Stable chronic scarring or atelectasis in the left lower lobe. 3 mm pulmonary nodule in the right middle lobe (image 1), stable compared to the chest CT from 2019 and most
compatible with a benign nodule.
Lexiscan 08/2023: No evidence of ischemia
ECHO 08/2023: Normal left ventricular size, wall thickness and systolic function. No regional wall motion abnormalities are seen. LV ejection fraction is 55-60% by Mansfield's method of discs. Stage I diastolic dysfunction suggestive of abnormal
relaxation. Valeriaon EPIQ left ventricular global longitudinal strain is -13.7 (global strain is more normal/preserved at the apex and lateral wall). Normal right ventricular size and function. Mitral valve opens normally. Trace mitral
regurgitation. Trileaflet aortic valve. No aortic regurgitation is seen. Trace tricuspid regurgitation. Tricuspid valve opens normally. Estimated pulmonary artery pressure of 15-[address]-PE 2020: 1. Moderate amount of ACUTE BILATERAL PULMONARY ARTERIAL EMBOLIC DISEASE.
2. No CTA evidence for right heart dysfunction.
3. SEVERE BILATERAL CENTRILOBULAR EMPHYSEMA.
4. Stable solid pulmonary nodules measuring up to 6 mm in size (unchanged from 07/02/2017).
5. Severe calcific atherosclerotic disease of the coronary arteries.
Total time spent on this consultation/encounter __41_ minutes which includes review of history, physical exam, medications, laboratory data, personal review of imaging, extensive review of outpatient records, discussion with care team and
respiratory therapy.
Subjective Data
-
Date of Service:
Date of Service: November 23, 2024
Chief Complaint: Pulmonary Follow Up
Subjective:
Patient is doing well. She denies significant shortness of breath, chest pain. She has a mild cough, nonproductive. She is not currently on 3 L. Family at bedside. She appears to be in good spirits
Objective Data
Data Reviewed
Vital Signs / I&O / Oxygen:
Vital Signs
Temp Pulse Resp BP Pulse Ox
97.7 F 82 16 156/65 99
11/23/24 07:00 11/23/24 07:25 11/23/24 07:25 11/23/24 07:00 11/23/24 07:25
Intake and Output
11/22/24 11/23/24 11/24/24
06:59 06:59 06:59
Intake Total 360 / 360 100 / 100
Balance 360 / 360 100 / 100
SaO2 99
Nasal Cannula flow liters per 3
minute
Physical Exam
General: Comfortable and Other (NAD)
HEENT: Normocephalic, Anicteric and Moist Mucous Membranes
Cardiovascular: S1-S2 and Regular Rhythm
Respiratory: Clear (poor air movement) and Non-Labored Respirations
GI: Soft, Non Distended and Non Tender
Neurology: Awake, Alert and No Motor Deficits (Moves all extremities)
Skin: Warm, Dry and Good Color
Labs/Micro/Reports
Lab Data
11/20/24 04:52
11/20/24 04:52
[2024-11-23] MEDS: NOVOLOG FLEXPEN-LOW RESISTANCE SC ×2 (09:56→11:50)
[2024-11-23] MEDS: CARDIZEM CD 240 MG PO (09:56)
[2024-11-23] MEDS: GLUCOPHAGE XR EXTENDED RELEASE 500 MG PO (09:57)
[2024-11-23] MEDS: DELTASONE 30 MG PO (09:57)
[2024-11-23] MEDS: ELIQUIS 5 MG PO (09:57)
[2024-11-23] MEDS: LEXAPRO 20 MG PO (09:57)
[2024-11-23] MEDS: PROTONIX 40 MG PO (09:57)
[2024-11-23] MEDS: NORVASC 5 MG PO (09:58)
[2024-11-23] MEDS: ZITHROMAX 250 MG PO (09:58)
[2024-11-23] MEDS: MUCINEX 600 MG PO (09:58)
--- NOTE | 2024-11-23 11:21 | CM ---
Chart reviewed and [facility] reached out stating that daughter maybe interested in hospice again, case mgr met with patient and patient's daughter and patient's daughter has declined hospice for now. Plan is to home with [facility], hospital bed will be
delivered at 12:00 today. Family to bring in patient's oxygen from home to assist with discharge.
Plan; Home today with [facility], patient and daughter to reach out to hospice after discharge.
[2024-11-23 11:32] LABS: Glucose - Point of Care 148 mg/dl (70-99)
[2024-11-23 11:46] VITALS: BP 127/62
--- NOTE | 2024-11-23 12:49 | W.DCSUMMARY ---
Discharge Summary
Discharge Data
Date of Admission: 11/17/24
Date of Discharge: 11/23/24
-
Pending Results: No
Hospital Course
78 years old female with chronic hypercapnic and hypoxic respiratory failure admitted with shortness of breath. Patient was diagnosed with acute on chronic respiratory failure with hypoxia and hypercapnia. She was evaluated by pulmonary doctor.
Patient was started on systemic steroids with continuation of nebulizer treatment. Patient has history of very severe COPD with emphysema and on chronic prednisone. She had also chronic metabolic alkalosis due to compensation from chronic
respiratory acidosis. Patient was maintained on oxygen therapy. She developed delirium but later improved with the decreasing of steroid and addition of as needed dose of Risperdal. Patient later improved with mentation back to normal. Goal of
care discussed with the patient and family. The plan was to discharge home and to resume palliative care with intention to do home hospice. Patient was given prescription to taper prednisone and to continue on the chronic dose of prednisone of 10
mg. Patient remained hemodynamically stable. She was discharged home in a stable condition.
Discharge Plan
-
Patient Disposition: Home with Home Care
Discharge Diagnosis/Procedures: COPD/ respiratory failure
Diet: As tolerated
Referrals:
Issa Cormier MD [Active] - in two to three weeks (Post Hospitalization Follow up in 2-3 weeks after discharge )
Hay Browne DO [Family Provider] -
Prescriptions:
New
prednisone 10 mg tablet
30 mg PO DAILY Qty: 47 0RF
Rx Instructions:
30 mg dialy X 5 days then 20 mg daily X 7 days then 10mg daily afterward
Continued
amlodipine 5 MG tablet
5 mg PO DAILY
metformin 500 MG tablet extended release 24 hr
500 mg PO BID@0800,1700
guaifenesin [Mucus Relief ER] 600 MG tablet extended release 12hr
600 mg PO BIDPRN PRN (Reason: post nasal drip)
diltiazem HCl 240 MG capsule,extended release 24hr
240 mg PO DAILY Qty: 30 0RF
ipratropium-albuterol 0.5 mg-3 mg(2.5 mg base)/3 mL Solution For Nebulization
3 ml INHALATION R QID
furosemide 20 mg Tablet
20 mg PO Q48H
formoterol fumarate [Perforomist] 20 mcg/2 mL Solution For Nebulization
20 mcg INHALATION R BID
budesonide 0.25 mg/2 mL Suspension For Nebulization
0.25 mg INHALATION R BID
escitalopram oxalate [Lexapro] 20 mg Tablet
20 mg PO DAILY
Eliquis 5 mg Tablet
5 mg PO BID
pantoprazole 40 mg tablet,delayed release (DR/EC)
40 mg PO BID
acetaminophen 500 mg Tablet
1,000 mg PO Q6HPRN PRN (Reason: mild pain/fever)
lorazepam 0.5 mg tablet
0.5 mg PO BIDPRN PRN (Reason: anxiety)
calcium carbonate 500 mg calcium (1,250 mg) Tablet,Chewable
500 mg PO BIDPRN PRN (Reason: indigestion)
albuterol sulfate 90 mcg/actuation HFA aerosol inhaler
1 puff INHALATION R Q4HPRN PRN (Reason: sob/wheezing)
sodium chloride 0.9 % Solution For Nebulization
1 ml INHALATION Q6HPRN PRN (Reason: sob)
Discontinued
prednisone 5 mg tablet
5 mg PO DAILY
doxycycline monohydrate 100 mg capsule
100 mg PO BID
Discharge Orders:
Discharge Patient (As Directed); Ordered 11/23/24
Ordered By: Nando Perez
Discharge Date and Time
Discharge Date/Time: 11/23/24 12:42
Print Language: BENGALI
== END 2024-11-23 12:42 | disposition home health service (06) | DRG 190 ==
LOC: 4 WEST ACU 14:36
PROVIDERS: Physician Assistant; Physician Assistant Medical; ADMITTING PHYSICIAN Internal Medicine; ATTENDING PHYSICIAN Internal Medicine; CONSULT PHYSICIAN Internal Medicine; EMERGENCY PHYSICIAN Emergency Medicine; FAMILY PHYSICIAN Family Medicine; OTHER PHYSICIAN Nurse Practitioner Gerontology
PROC: 5A09357 Assistance with Respiratory Ventilation, Less than 24 Consecutive Hours, Continuous Positive Airway Pressure (ICD-10-PCS; 2024-11-17)
DX: J43.2 Centrilobular emphysema (principal); J96.21 Acute and chronic respiratory failure with hypoxia; J96.22 Acute and chronic respiratory failure with hypercapnia; I50.32 Chronic diastolic (congestive) heart failure; E87.3 Alkalosis; J98.11 Atelectasis; E44.0 Moderate protein-calorie malnutrition; F05 Delirium due to known physiological condition; E78.00 Pure hypercholesterolemia, unspecified; I11.0 Hypertensive heart disease with heart failure; K21.9 Gastro-esophageal reflux disease without esophagitis; I25.10 Atherosclerotic heart disease of native coronary artery without angina pectoris; F32.A Depression, unspecified; R47.81 Slurred speech; R05.3 Chronic cough; I73.9 Peripheral vascular disease, unspecified; E11.65 Type 2 diabetes mellitus with hyperglycemia; D50.9 Iron deficiency anemia, unspecified; R91.8 Other nonspecific abnormal finding of lung field; K29.50 Unspecified chronic gastritis without bleeding; D72.829 Elevated white blood cell count, unspecified; M62.50 Muscle wasting and atrophy, not elsewhere classified, unspecified site; F41.9 Anxiety disorder, unspecified; R26.2 Difficulty in walking, not elsewhere classified; Z66 Do not resuscitate; Z79.84 Long term (current) use of oral hypoglycemic drugs; Z79.01 Long term (current) use of anticoagulants; Z79.51 Long term (current) use of inhaled steroids; Z79.52 Long term (current) use of systemic steroids; Z87.891 Personal history of nicotine dependence; Z90.49 Acquired absence of other specified parts of digestive tract; Z86.718 Personal history of other venous thrombosis and embolism; Z86.711 Personal history of pulmonary embolism; Z99.81 Dependence on supplemental oxygen; Z68.20 Body mass index [BMI] 20.0-20.9, adult
CPT/HCPCS: 71046; 76700; 80048; 80053; 82805; 82962; 83036; 83690; 83880; 84484; 85025; 85027; 93005; 94640; 94660; 96374; 96375; 97163; 97167; 99285